=== PATIENT | female | born 1995 | race Hispanic/Latino ===

== ENCOUNTER 2018-09-05 13:30 | Emergency (ER) | payer BC, OTHER ==
--- OUTSIDE RECORDS SUMMARY | 2018-09-05 13:36 | XMS REPORT ---
:1995 Author Organization eClinicalWorks Care Team Providers Name Role Phone Ramakrishna [facility] Provider Role Unavailable Allergies, Adverse Reactions, Alerts Substance Reaction Event Type codeine Info Not Available Drug Allergy Problems Problem Type Condition Code Onset Dates Condition Status Assessment Diabetes type 2, controlled E11.9 Active Assessment Acute non-recurrent maxillary J01.00 Active sinusitis Assessment S/P gastrectomy Z90.3 Active Assessment Depression with anxiety F41.8 Active Assessment Iron deficiency anemia secondary to D50.8 Active inadequate dietary iron intake Assessment Vitamin D deficiency E55.9 Active Problem Chronic sinusitis, unspecified J32.9 Active location Problem Seasonal allergic rhinitis, J30.2 Active unspecified trigger Problem Vitamin D deficiency E55.9 Active Problem Depression with anxiety F41.8 Active Problem Iron deficiency anemia secondary to D50.8 Active inadequate dietary iron intake Problem S/P gastrectomy Z90.3 Active Problem Diabetes type 2, controlled E11.9 Active Medications Medication Code Code Instructions Start End Date Status Dosage System Date Ferrous Sulfate [facility] [id number] 325 (65 Fe) MG Active 1 tablet Orally BID Azithromycin ND [id number] 250 MG Orally Aug 07Aug 12, Active 2 tablets Once a day 2017 2017 on the first day, then 1 tablet daily for 4 days Vitamin D3 [facility] [id number] UNIT Aug 07October Active 1 capsule Orally Once a 2017 week x 12 weeks Results No Known Results Summary Purpose eClinicalWorks Submission
[2018-09-05 15:03] LABS: Urine Blood NEGATIVE (NEG); Urine Glucose NEGATIVE (NEG); Urine Protein NEGATIVE (NEG); Urine Specific Gravity 1.025 (1.005-1.030); Urine pH 6.5 (5.0-7.0)
[2018-09-05 15:06] LABS: Urine Bacteria 20-50 /HPF (<20); Urine Culture Reflex Order NOT NEEDED; Urine Mucus 2+ /HPF (NONE SEEN); Urine RBC <5 /HPF (NONE SEEN)
--- NOTE | 2018-09-05 15:37 | ER ---
Nurse's Notes [facility] Name: Camilla Enciso Age: 23 yrs Sex: Female : 1995 Arrival Date: 09/05/2018 Time: 13:33 Bed 15 Private MD: out of town, doctor Diagnosis: Urinary tract infection, site not specified;Abdominal tenderness-ecchymosis Presentation: 09/05 13:34 Presenting complaint: Patient states: RLQ pain, dark purple bruise noted yesterday but sv denies injury or recent MVC. Reports "It feels like a ball.". Transition of care: patient was not received from another setting of care. Onset of symptoms was September 04, 2018. Care prior to arrival: None. 13:34 Method Of Arrival: Ambulatory sv 13:34 Acuity: ALFREDITO 3 sv 14:00 Risk Assessment: Do you want to hurt yourself or someone else? Patient reports no jl7 desire to harm self or others. Initial Sepsis Screen: Does the patient meet any 2 criteria? No. Patient's initial sepsis screen is negative. Does the patient have a suspected source of infection? No. Patient's initial sepsis screen is negative. Triage Assessment: 13:34 General: Appears in no apparent distress. uncomfortable, Behavior is calm, cooperative, sv appropriate for age. Pain: Complains of pain in right lower quadrant Pain currently is 7 out of 10 on a pain scale. Neuro: Level of Consciousness is awake, alert, obeys commands, Oriented to person, place, time, situation, Moves all extremities. Full function Gait is steady. Respiratory: Respiratory effort is even, unlabored, Respiratory pattern is regular, symmetrical. Derm: Skin is pink, warm \\T\\ dry. Bruising that is dark purple, on right lower quadrant. Historical: - Allergies: 13:35 Hydrocodone-Acetaminophen; sv - PSHx: 13:35 Gastric Bypass; Tonsillectomy; sv - Immunization history:: Flu vaccine is up to date. - Social history:: Smoking status: Patient/guardian denies using tobacco. - Ebola Screening: : No symptoms or risks identified at this time. Screenin:41 Abuse screen: Denies threats or abuse. Denies injuries from another. Nutritional sv screening: No deficits noted. Tuberculosis screening: No symptoms or risk factors identified. Fall Risk None identified. Assessment: 14:00 General: Appears in no apparent distress. uncomfortable, Behavior is calm, cooperative, jl7 appropriate for age. Pain: Complains of pain in right lower quadrant Pain does not radiate. Pain currently is 6 out of 10 on a pain scale. Quality of pain is described as crampy, Pain began 1 day ago. Is continuous. Neuro: Level of Consciousness is awake, alert, obeys commands, Oriented to person, place, time, situation. Cardiovascular: Heart tones S1 S2 present Patient's skin is warm and dry. Respiratory: Airway is patent Respiratory effort is even, unlabored, Respiratory pattern is regular, symmetrical. GI: Bowel sounds present X 4 quads. Abd is soft and non tender in right upper quadrant, left upper quadrant and left lower quadrant Abdomen is tender to palpation in right lower quadrant. : No signs and/or symptoms were reported regarding the genitourinary system. EENT: No signs and/or symptoms were reported regarding the EENT system. Derm: Skin is pink, warm \\T\\ dry. Musculoskeletal: No signs and/or symptoms reported regarding the musculoskeletal system. 15:00 Reassessment: Patient appears in no apparent distress at this time. Patient and/or jl7 family updated on plan of care and expected duration. Pain level reassessed. Patient is alert, oriented x 3, equal unlabored respirations, skin warm/dry/pink. 16:35 Reassessment: Pt will be discharged after shot time. jl7 Vital Signs: 13:35 BP 106 / 70; Pulse 71; Resp 16; Temp 98.5; Pulse Ox 100% ; Weight 77.11 kg; Height 5 sv ft. 5 in. (165.10 cm); Pain 7/10; 14:30 BP 121 / 75; Pulse 66; Resp 16 S; Pulse Ox 100% on R/A; Pain 6/10; jl7 15:30 BP 119 / 78; Pulse 63; Resp 16 S; Pulse Ox 100% on R/A; jl7 16:30 BP 121 / 74; Pulse 65; Resp 14 S; Pulse Ox 100% on R/A; jl7 13:35 Body Mass Index 28.29 (77.11 kg, 165.10 cm) sv ED Course: 13:33 Patient arrived in ED. mr 13:33 out of town, doctor is Private Physician. mr 13:35 Triage completed. sv 13:36 Arm band placed on. sv 13:41 [facility] snw 13:41 Abram Delong MD is Attending Physician. snw 13:41 Leonardo Tejeda, KB is Primary Nurse. jl7 13:41 Patient has correct armband on for positive identification. Bed in low position. Door sv closed. Head of bed elevated. 14:52 Urine Culture Sent. 5 14:52 Test, Urine Sent. 5 14:52 Urine Microscopic Only Sent. mh5 14:53 Urine collected: clean catch specimen, clear. mh5 14:54 Urine --Ancillary (enter results) Sent. mh5 14:54 Urine Dipstick--Ancillary (enter results) Sent. 5 15:11 Extremity Nonvascular Complete In Process Unspecified. EDMS 16:50 No provider procedures requiring assistance completed. Patient did not have IV access jl7 during this emergency room visit. Administered Medications: 16:35 Drug: Rocephin (cefTRIAXone) 1 grams Route: IM; Site: right ventrogluteal; jl7 16:50 Follow up: Response: No adverse reaction jl7 Outcome: 15:37 Discharge ordered by MD. snw 16:50 Discharged to home ambulatory. jl7 16:50 Condition: stable 16:50 Discharge instructions given to patient, Instructed on discharge instructions, follow up and referral plans. medication usage, Demonstrated understanding of instructions, follow-up care, medications, Prescriptions given X 1. 17:20 Patient left the ED. jl7 Signatures: Dispatcher [employer] EDMD Corrina Cabral RN RN Kadi Almaguer FNP-C [facility] Leonardo Tejeda, RN RN jl7 Corrections: (The following items were deleted from the chart) 17:20 17:19 Discharged to home ambulatory, jl7 jl7 17:20 17:19 Condition: stable jl jl7 17:20 17:19 Discharge instructions given to patient, Instructed on discharge instructions, jl7 follow up and referral plans. medication usage, Demonstrated understanding of instructions, follow-up care, medications, Prescriptions given X 1, jl7
--- NOTE | 2018-09-05 15:38 | EDPHYS ---
Physician Documentation [facility] Name: Camilla Enciso Age: 23 yrs Sex: Female : 1995 Arrival Date: 09/05/2018 Time: 13:33 Bed 15 Private MD: out of town, doctor ED Physician Abram Delong HPI: 09/05 14:30 This 23 yrs old Female presents to ER via Ambulatory with complaints of snw Abdominal Pain. 14:30 The patient presents with abd ecchymosis s/p squeezing small area, c/o abd cramping. snw Onset: The symptoms/episode began/occurred suddenly, yesterday. The symptoms do not radiate. Associated signs and symptoms: Pertinent positives: abd cramping. The symptoms are described as crampy. Severity of pain: At its worst the pain was very mild mild. The patient has not experienced similar symptoms in the past. The patient has not recently seen a physician. no gingival bleeding, no GI bleeding, no hematuria. Historical: - Allergies: 13:35 Hydrocodone-Acetaminophen; sv - PSHx: 13:35 Gastric Bypass; Tonsillectomy; sv - Immunization history:: Flu vaccine is up to date. - Social history:: Smoking status: Patient/guardian denies using tobacco. - Ebola Screening: : No symptoms or risks identified at this time. ROS: 14:27 Constitutional: Negative for fever, chills, and weight loss, Eyes: Negative for injury, snw pain, redness, and discharge, ENT: Negative for injury, pain, and discharge, Neck: Negative for injury, pain, and swelling, Cardiovascular: Negative for chest pain, palpitations, and edema, Respiratory: Negative for shortness of breath, cough, wheezing, and pleuritic chest pain, Back: Negative for injury and pain, : Negative for injury, bleeding, discharge, and swelling, MS/Extremity: Negative for injury and deformity, Skin: Negative for injury, rash, and discoloration, Neuro: Negative for headache, weakness, numbness, tingling, and seizure. 14:27 Abdomen/GI: Positive for abdominal cramps, area of ecchymosis s/p squeezing a sore area. Exam: 14:27 Constitutional: This is a well developed, well nourished patient who is awake, alert, snw and in no acute distress. Head/Face: Normocephalic, atraumatic. Eyes: Pupils equal round and reactive to light, extra-ocular motions intact. Lids and lashes normal. Conjunctiva and sclera are non-icteric and not injected. Cornea within normal limits. Periorbital areas with no swelling, redness, or edema. ENT: Nares patent. No nasal discharge, no septal abnormalities noted. Tympanic membranes are normal and external auditory canals are clear. Oropharynx with no redness, swelling, or masses, exudates, or evidence of obstruction, uvula midline. Mucous membranes moist. Neck: Trachea midline, no thyromegaly or masses palpated, and no cervical lymphadenopathy. Supple, full range of motion without nuchal rigidity, or vertebral point tenderness. No Meningismus. Chest/axilla: Normal chest wall appearance and motion. Nontender with no deformity. No lesions are appreciated. Cardiovascular: Regular rate and rhythm with a normal S1 and S2. No gallops, murmurs, or rubs. Normal PMI, no JVD. No pulse deficits. Respiratory: Lungs have equal breath sounds bilaterally, clear to auscultation and percussion. No rales, rhonchi or wheezes noted. No increased work of breathing, no retractions or nasal flaring. Back: No spinal tenderness. No costovertebral tenderness. Full range of motion. Skin: Warm, dry with normal turgor. Normal color with no rashes, no lesions, and no evidence of cellulitis. MS/ Extremity: Pulses equal, no cyanosis. Neurovascular intact. Full, normal range of motion. Neuro: Awake and alert, GCS 15, oriented to person, place, time, and situation. Cranial nerves II-XII grossly intact. Motor strength 5/5 in all extremities. Sensory grossly intact. Cerebellar exam normal. Normal gait. 14:27 Abdomen/GI: Inspection: bruising, right lower quadrant, Bowel sounds: normal, Palpation: abdomen is soft and non-tender. Vital Signs: 13:35 BP 106 / 70; Pulse 71; Resp 16; Temp 98.5; Pulse Ox 100% ; Weight 77.11 kg; Height 5 sv ft. 5 in. (165.10 cm); Pain 7/10; 14:30 BP 121 / 75; Pulse 66; Resp 16 S; Pulse Ox 100% on R/A; Pain 6/10; jl7 15:30 BP 119 / 78; Pulse 63; Resp 16 S; Pulse Ox 100% on R/A; jl7 16:30 BP 121 / 74; Pulse 65; Resp 14 S; Pulse Ox 100% on R/A; jl7 13:35 Body Mass Index 28.29 (77.11 kg, 165.10 cm) sv MDM: 14:06 Patient medically screened. snw 15:38 Data reviewed: vital signs, nurses notes. Data interpreted: Pulse oximetry: on room air snw is 100 %. Interpretation: normal. Counseling: I had a detailed discussion with the patient and/or guardian regarding: the historical points, exam findings, and any diagnostic results supporting the discharge/admit diagnosis, lab results, the need for outpatient follow up, for definitive care, to return to the emergency department if symptoms worsen or persist or if there are any questions or concerns that arise at home. Special discussion: Based on the patient's Hx, exam, and Dx evaluation, there is no indication for emergent surgery or inpatient Tx. It is understood by the patient/guardian that if the Sx's persist or worsen they need to return immediately for re-evaluation. Based on the history and exam findings, there is no indication for further emergent testing or inpatient evaluation. I discussed with the patient/guardian the need to see the primary care provider for further evaluation of the symptoms. 09/05 14:50 Order name: Urine Dipstick--Ancillary (enter results); Complete Time: 15:12 09/05 14:50 Order name: Urine --Ancillary (enter results); Complete Time: 15:12 09/05 14:51 Order name: Test, Urine; Complete Time: 15:12 EDNM 09/05 14:51 Order name: Urine Microscopic Only; Complete Time: 15:12 EDNM 09/05 13:43 Order name: Urine Test (obtain specimen); Complete Time: 14:52 snw 09/05 13:43 Order name: Urine Dipstick-Ancillary (obtain specimen); Complete Time: 14:52 snw 09/05 14:51 Order name: Urine Culture EDNM 09/05 14:55 Order name: Extremity Nonvascular Complete; Complete Time: 16:00 EDMS Administered Medications: 16:35 Drug: Rocephin (cefTRIAXone) 1 grams Route: IM; Site: right ventrogluteal; jl7 16:50 Follow up: Response: No adverse reaction jl7 Disposition: 17:48 Co-signature as Attending Physician, Abram Delong MD. rn Disposition: 09/05/18 15:37 Discharged to Home. Impression: Urinary tract infection, site not specified, Abdominal tenderness - ecchymosis. - Condition is Stable. - Discharge Instructions: Abdominal Pain, Adult, Contusion, Urinary Tract Infection, Adult. - Prescriptions for Macrobid 100 mg Oral Capsule - take 1 capsule by ORAL route every 12 hours for 10 days; 20 capsule. - Work release form, Medication Reconciliation Form, Thank You Letter, Antibiotic Education, Prescription Opioid Use form. - Follow up: Private Physician; When: 2 - 3 days; Reason: Recheck today's complaints, Continuance of care, Re-evaluation by your physician. Follow up: Emergency Department; When: As needed; Reason: Worsening of condition. Signatures: Dispatcher [employer] EDNM Corrina Cabral RN RN Kadi Cristobal, HEEL SPRAYER-C HEEL SPRAYER-[facility] Abram Delong MD MD rn Leal, Jahala, RN RN jl7 Corrections: (The following items were deleted from the chart) 14:55 14:52 Abdomen Complete+US.RAD.BRZ ordered. EDNM EDNM 15:46 14:52 Urine Culture+BA.LAB.BRZ ordered. EDNM EDNM 15:48 14:52 UA MICROSCOPIC+U.LAB.BRZ ordered. [facility] EDNM 17:20 15:37 09/05/2018 15:37 Discharged to Home. Impression: Urinary tract infection, site jl7 not specified; Abdominal tenderness - ecchymosis. Condition is Stable. Forms are Medication Reconciliation Form, Thank You Letter, Antibiotic Education, Prescription Opioid Use. Follow up: Private Physician; When: 2 - 3 days; Reason: Recheck today's complaints, Continuance of care, Re-evaluation by your physician. Follow up: Emergency Department; When: As needed; Reason: Worsening of condition. snw
--- NOTE | 2018-09-05 15:55 | RAD REPORT ---
EXAM DESCRIPTION: US - Extremity Nonvascular Complete - 09/05/2018 3:09 pm CLINICAL HISTORY: Right lower quadrant skin bruising COMPARISON: None. FINDINGS: Sonographic evaluation of the superficial soft tissues of the right lower quadrant abdomen performed. Within the subcutaneous fatty tissues approximately 1 centimeter deep to the skin surface there is a 7 x 5 x 4 mm hypoechoic rounded mass. Doppler evaluation shows no blood flow within the mass and no a bnormal blood flow round the periphery. Surrounding fatty tissues do not appear to be edematous. Over lying skin is not appear abnormally thickened or edematous. Trauma history is uncertain. This could be a small old hematoma in the subcutaneous fat. Mass is rela tively deep for a sebaceous cyst or skin based lesion. No sinus tract identifiable. IMPRESSION: Small 7 mm avascular hypoechoic mass in the subcutaneous fatty tissues 1 centimeter deep to the skin. Finding is nonspecific. This may be a small bold hematoma. A small abscess from a sebaceous cyst woul d be possible though this is relatively deep. No sinus tract to the skin surface.
[2018-09-05] MEDS ORDERED: CEFTRIAXONE 1000 MG/VIAL ONE (16:18)
[2018-09-05] MEDS ORDERED: LIDOCAINE 1% MPF 2 ML AMPULE ONE (16:18)
[2018-09-05 17:36] VITALS: TEMP 98.5; O2SAT 100
[2018-09-05 17:40] VITALS: BP 121/74
== END 2018-09-05 17:20 | disposition home or self-care (01) ==
LOC: ER 13:30
DX: N39.0 Urinary tract infection, site not specified (principal); Z88.5 Allergy status to narcotic agent
CPT/HCPCS: 76881; 81003; 81015; 81025; 87086; 87088; J2001

== ENCOUNTER 2018-12-12 18:43 | Observation (INO) | payer BC ==
--- OUTSIDE RECORDS SUMMARY | 2018-12-12 19:02 | XMS REPORT ---
:1995 Author Organization eClinicalWorks Care Team Providers Name Role Phone Ramakrishna [facility] Provider Role Unavailable Allergies, Adverse Reactions, Alerts [...] Date Status Dosage System Date Ferrous Sulfate [facility] [id number] 325 (65 Fe) MG Active 1 tablet Orally BID Azithromycin ND 49385013786 250 MG Orally Aug 07Aug 12, Active 2 tablets Once a day 2017 2017 on the first day, then 1 tablet daily for 4 days Vitamin D3 [facility] [id number] UNIT Aug 07October Active 1 capsule Orally Once a 2017 week x 12 weeks Results No Known Results Summary Purpose eClinicalWorks Submission
--- OUTSIDE RECORDS SUMMARY | 2018-12-12 19:02 | XMS REPORT ---
:1995 Author Organization eClinicalWorks Care Team Providers Name Role Phone Ramakrishna [facility] Provider Role Unavailable Allergies No Known Allergies Problems Problem Type Condition Code Onset Dates Condition Status Problem Chronic sinusitis, unspecified J32.9 Active location Problem Seasonal allergic rhinitis, J30.2 Active unspecified trigger Problem Vitamin D deficiency E55.9 Active Problem Depression with anxiety F41.8 Active Problem Iron deficiency anemia secondary to D50.8 Active inadequate dietary iron intake Problem S/P gastrectomy Z90.3 Active Problem Diabetes type 2, controlled E11.9 Active Medications No Known Medications Results No Known Results Summary Purpose eClinicalWorks Submission
[2018-12-12 20:51] LABS: Absolute Lymphocytes (CBC) 1.8 K/uL (0.7-4.9); Absolute Monocytes 0.5 K/uL (0.1-1.3); Absolute Neutrophil 2.9 K/uL (1.8-8.0); Basophils % 0.6 % (0-1.3); Eosinophils % 3.1 % (0-4.4); Hematocrit 21.1 % (36.0-45.0); Lymphocytes % 33.6 % (15.3-44.8); MPV 6.6 fL (7.6-11.3); Monocytes % 8.5 % (3.3-12.3); RBC Red Blood Cell Count 2.42 M/uL (3.86-4.86)
[2018-12-12 21:08] LABS: BUN Blood Urea Nitrogen 14 mg/dL (7-18); Bicarbonate 30 mmol/L (21-32); Glucose Level 92 mg/dL (74-106); NT PRO-BNP 230 pg/mL (<125); Potassium 3.7 mmol/L (3.5-5.1); Sodium Level 143 mmol/L (136-145)
--- NOTE | 2018-12-12 21:20 | RAD REPORT ---
EXAM DESCRIPTION: USExtrem Venous W Compress Bil12/12/2018 9:14 pm CLINICAL HISTORY: Bilateral leg swelling COMPARISON: none FINDINGS: The common femoral, superficial femoral, popliteal and posterior tibial veins bilaterally are compressible and demonstrate augmentation. Doppler demonstrates good flow. IMPRESSION: No evidence of deep venous thrombosis involving either lower extremity.
--- NOTE | 2018-12-12 21:21 | RAD REPORT ---
EXAM DESCRIPTION: [place] Single View12/12/2018 9:09 pm CLINICAL HISTORY: sob COMPARISON: 2014 FINDINGS: The lungs appear clear of acute infiltrate. The heart is normal size IMPRESSION: No acute abnormalities displayed
[2018-12-12 21:53] LABS: RBC Red Blood Cell Count 2.45 M/uL (3.86-4.86)
--- NOTE | 2018-12-12 22:16 | ER ---
Nurse's Notes [facility] Name: Camilla Enciso Age: 23 yrs Sex: Female : 1995 Arrival Date: 12/12/2018 Time: 18:46 Bed 6 Private MD: Baljeet Durbin Diagnosis: Anemia in chronic diseases classified elsewhere Presentation: 12/12 19:14 Presenting complaint: Patient states: "I had surgery in [place], liposuction, and now my jd3 legs and ankles are swelling.". Transition of care: patient was not received from another setting of care. Onset of symptoms was December 11, 2018. Risk Assessment: Do you want to hurt yourself or someone else? Patient reports no desire to harm self or others. Initial Sepsis Screen: Does the patient meet any 2 criteria? No. Patient's initial sepsis screen is negative. Does the patient have a suspected source of infection? No. Patient's initial sepsis screen is negative. Care prior to arrival: None. 19:14 Method Of Arrival: Ambulatory j 19:14 Acuity: ALFREDITO 3 jd3 WASHER CARCASS: 19:18 LMP 12/08/2018 jd3 Historical: - Allergies: 19:18 Hydrocodone-Acetaminophen; jd3 - Home Meds: 19:18 Cipro Oral [Active]; Ferrous Sulfate Oral [Active]; jd3 - PMHx: 19:18 Anemia; jd3 - PSHx: 19:18 Gastric Bypass; Tonsillectomy; jd3 - Immunization history:: Adult Immunizations up to date. - Social history:: Smoking status: Patient/guardian denies using tobacco. - Ebola Screening: : Patient negative for fever greater than or equal to 101.5 degrees Fahrenheit, and additional compatible Ebola Virus Disease symptoms. Screenin:29 Abuse screen: Denies threats or abuse. Denies injuries from another. Nutritional ao screening: No deficits noted. Tuberculosis screening: No symptoms or risk factors identified. Fall Risk None identified. Assessment: 20:27 General: Appears in no apparent distress. comfortable, Behavior is calm, cooperative, ao appropriate for age. Pain: Complains of pain in right leg and left leg. Neuro: Level of Consciousness is awake, alert, obeys commands, Oriented to person, place, time, situation, Appropriate for age Moves all extremities. Full function Speech is normal, Facial symmetry appears normal. Cardiovascular: Capillary refill < 3 seconds Patient's skin is warm and dry. Respiratory: Airway is patent Respiratory effort is even, unlabored, Respiratory pattern is regular, symmetrical. GI: Abdomen is non-distended. : No signs and/or symptoms were reported regarding the genitourinary system. EENT: No signs and/or symptoms were reported regarding the EENT system. Derm: Skin is dry, Skin is pink, warm \\T\\ dry. normal, Skin temperature is warm. Musculoskeletal: Circulation, motion, and sensation intact. Range of motion: intact in all extremities, Swelling present in right leg and left leg. 20:50 Reassessment: Patient appears in no apparent distress at this time. Patient and/or ao family updated on plan of care and expected duration. Pain level reassessed. 20:57 Reassessment: Report an lab alert Hg 7.2 to BRENT Miller. ao 22:10 Reassessment: Patient appears in no apparent distress at this time. Patient and/or ao family updated on plan of care and expected duration. Pain level reassessed. Vital Signs: 19:18 BP 122 / 99; Pulse 91; Resp 17 S; Temp 98.9(O); Pulse Ox 100% on R/A; Weight 80.29 kg jd3 (R); Height 5 ft. 5 in. (165.10 cm) (R); Pain 0/10; 20:50 BP 116 / 64; Pulse 86; Resp 16; Pulse Ox 98% on R/A; ao 21:50 BP 128 / 82 Supine; Pulse 85; ao 21:52 BP 127 / 76 Sitting; Pulse 100; ao 21:54 BP 122 / 77 Standing; Pulse 94 RA; Resp 18; Pulse Ox 100% on R/A; ao 22:54 BP 114 / 78; Pulse 84; Resp 18; Temp 98.9; Pulse Ox 100% on R/A; Pain 0/10; ak1 19:18 Body Mass Index 29.45 (80.29 kg, 165.10 cm) jd3 19:18 reports no pain, only pressure. jd3 ED Course: 18:46 Patient arrived in ED. mr 18:46 Baljeet Durbin, is Private Physician. mr 19:17 Triage completed. jd3 19:19 Arm band placed on. jd3 19:39 Osorio Hernandez, RN is Primary Nurse. ao 19:42 Lennox Simons PA is PHCP. cp 19:42 Lennox Otoole MD is Attending Physician. cp 20:29 Patient has correct armband on for positive identification. Pulse ox on. NIBP on. ao 20:37 Inserted saline lock: 20 gauge in left antecubital area, using aseptic technique. ao 21:09 XRAY Chest (1 view) In Process Unspecified. EDMS 21:13 US Extremity Venous W Compression [place] In Process Unspecified. EDMS 22:14 Served as a chip bin conveyor tender during rectal exam. hemoccult negative. ak1 22:15 Lakisha Tenorio MD is Hospitalizing Provider. cp 22:52 Patient admitted, IV remains in place. ak1 Administered Medications: No medications were administered Outcome: 22:16 Decision to Hospitalize by Provider. cp 22:52 Condition: good ak1 22:52 Instructed on the need for admit. 22:52 Admitted to Med/surg accompanied by tech, via wheelchair, room 211, with chart, Report ak1 called to hussein QUILES 23:29 Patient left the ED. ak1 Signatures: Dispatcher [employer] EDOH Tania ZaragozaCourtney RN RN ak1 Lennox Simons PA PA cp Osorio Hernandez, RN RN Remington Gonzalez RN RN jd3
--- NOTE | 2018-12-12 22:16 | EDPHYS ---
Physician Documentation [facility] Name: Camilla Enciso Age: 23 yrs Sex: Female : 1995 Arrival Date: 12/12/2018 Time: 18:46 Bed 6 Private MD: Ramakrishna Baljeet ED Physician Lennox Otoole HPI: 12/12 20:00 This 23 yrs old Female presents to ER via Ambulatory with complaints of Leg cp Swelling. 20:00 The patient presents with swelling. The complaints affect the right lower leg and left cp lower leg and right ankle and left ankle. 20:00 Context: reports recent liposuction surgery performed in [place]. Onset: The cp symptoms/episode began/occurred gradually. Associated signs and symptoms: Pertinent negatives calf tenderness, fever, warmth, SOB, chest pain. Severity of symptoms: in the emergency department the symptoms have improved, mildly. 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 - Social history:: Smoking status: Patient/guardian denies using tobacco. - Ebola Screening: : Patient negative for fever greater than or equal to 101.5 degrees Fahrenheit, and additional compatible Ebola Virus Disease symptoms. ROS: 20:05 Constitutional: Negative for body aches, chills, fever, poor PO intake. cp 20:05 Eyes: Negative for injury, pain, redness, and discharge. cp 20:05 ENT: Negative for drainage from ear(s), ear pain, sore throat, difficulty swallowing, difficulty handling secretions. 20:05 Neck: Negative for pain with movement, pain at rest, stiffness, tenderness. 20:05 Cardiovascular: Positive for edema, Negative for chest pain. 20:05 Respiratory: Negative for cough, hemoptysis, shortness of breath, wheezing. 20:05 Abdomen/GI: Negative for abdominal pain, nausea, vomiting, and diarrhea, black/tarry stool, rectal bleeding. 20:05 Back: Negative for pain at rest, pain with movement. 20:05 : Negative for urinary symptoms. 20:05 Skin: Negative for rash. 20:05 Neuro: Negative for altered mental status, headache, syncope, weakness. 20:05 All other systems are negative. Exam: 20:15 Constitutional: The patient appears in no acute distress, alert, awake, cp non-diaphoretic, non-toxic, well developed, well nourished. 20:15 Head/Face: Normocephalic, atraumatic. cp 20:15 Eyes: Periorbital structures: appear normal, Pupils: equal, round, and reactive to light and accomodation, Extraocular movements: intact throughout, Conjunctiva: normal, no exudate, no injection, Sclera: no appreciated abnormality, Lids and lashes: appear normal, bilaterally. 20:15 ENT: External ear(s): are unremarkable, Ear canal(s): are normal, clear, TM's: dullness, bilaterally, Nose: is normal, Mouth: Lips: moist, Oral mucosa: pink and intact, moist, Posterior pharynx: Airway: no evidence of obstruction, patent, swelling, is not appreciated, erythema, is not appreciated, Voice: is normal. 20:15 Neck: ROM/movement: is normal, is supple, without pain, no range of motions limitations, no nuchal rigidity. 20:15 Chest/axilla: Inspection: normal, Palpation: is normal, no crepitus, no tenderness. 20:15 Cardiovascular: Rate: normal, Rhythm: regular, Edema: ankle edema, that is mild, JVD: is not appreciated. 20:15 Respiratory: the patient does not display signs of respiratory distress, Respirations: normal, no grunting, no retractions, no splinting, no tachypnea, labored breathing, is not present, Breath sounds: are clear throughout, no decreased breath sounds, no stridor, no wheezing. 20:15 Abdomen/GI: Inspection: bruising, Bowel sounds: active, all quadrants, Palpation: soft, in all quadrants, mild abdominal tenderness, in all quadrants. 20:15 Back: pain, is absent, ROM is normal. 20:15 Skin: cellulitis, is not appreciated, no rash present. 20:15 Neuro: Orientation: to person, place \T\ time. Mentation: is normal, Cerebellar function: is grossly normal, Motor: moves all fours, strength is normal, Sensation: is normal. 20:42 ECG was reviewed by the Attending Physician. cp 22:11 : Rectal exam: Guaiac testing: results were negative for occult blood. cp Vital Signs: 19:18 BP 122 / 99; Pulse 91; Resp 17 S; Temp 98.9(O); Pulse Ox 100% on R/A; Weight 80.29 kg jd3 (R); Height 5 ft. 5 in. (165.10 cm) (R); Pain 0/10; 20:50 BP 116 / 64; Pulse 86; Resp 16; Pulse Ox 98% on R/A; ao 21:50 BP 128 / 82 Supine; Pulse 85; ao 21:52 BP 127 / 76 Sitting; Pulse 100; ao 21:54 BP 122 / 77 Standing; Pulse 94 RA; Resp 18; Pulse Ox 100% on R/A; ao 22:54 BP 114 / 78; Pulse 84; Resp 18; Temp 98.9; Pulse Ox 100% on R/A; Pain 0/10; ak1 19:18 Body Mass Index 29.45 (80.29 kg, 165.10 cm) jd3 19:18 reports no pain, only pressure. jd3 MDM: 19:42 Patient medically screened. cp 22:15 Data reviewed: vital signs, nurses notes, lab test result(s), EKG, radiologic studies, cp plain films, ultrasound, I have discussed the patient's presentation/case with the attending Emergency Department Physician; and as a result, I will admit patient. 22:15 Test interpretation: by ED physician or midlevel provider: ECG, plain radiologic cp studies. Counseling: I had a detailed discussion with the patient and/or guardian regarding: the historical points, exam findings, and any diagnostic results supporting the discharge/admit diagnosis, lab results, radiology results, the need for further work-up and treatment in the hospital. Physician consultation: Lakisha Tenorio MD was called at 22:10, was contacted at 22:10, regarding admission, to the medical/surgical unit. patient's condition. 12/12 20:21 Order name: BMP; Complete Time: 21:09 cp 12/12 20:21 Order name: BNP; Complete Time: 21:09 cp 12/12 20:21 Order name: CBC with Diff; Complete Time: 20:59 cp 12/12 21:00 Interpretation: Normal except: RBC 2.42; HGB 7.2; HCT 21.1; MCV 87.0; MPV 6.6. cp 12/12 21:11 Order name: Retic Count 12/12 21:11 Order name: Iron Level 12/12 21:11 Order name: B12 12/12 21:11 Order name: Folic Acid,Serum (folate) 12/12 21:11 Order name: Retic Count; Complete Time: 22:12 EDIN 12/12 21:11 Order name: Ferritin EDIN 12/12 21:11 Order name: Vitamin B12 Level [facility] 12/12 21:11 Order name: Folic Acid, (Folate) [facility] 12/12 22:13 Order name: Type And Screen 12/12 22:37 Order name: Packed RBC Leukored -1 [facility] 12/12 22:39 Order name: ABO/RH typing [facility] 12/12 20:21 Order name: US Extremity Venous W Compression [place]; Complete Time: 22:12 12/12 20:21 Order name: EKG; Complete Time: 20:22 12/12 20:21 Order name: XRAY Chest (1 view); Complete Time: 22:12 12/12 22:37 Order name: CONS Pharmacy Consult [facility] 12/12 22:37 Order name: EKG Electrocardiogram [facility] 12/12 22:37 Order name: EKG Electrocardiogram [facility] 12/12 22:37 Order name: EKG Electrocardiogram [facility] 12/12 22:37 Order name: EKG Electrocardiogram [facility] 12/12 22:37 Order name: EKG Electrocardiogram [facility] 12/12 22:37 Order name: EKG Electrocardiogram [facility] 12/12 22:37 Order name: EKG Electrocardiogram [facility] 12/12 22:37 Order name: EKG Electrocardiogram [facility] 12/12 22:37 Order name: EKG Electrocardiogram [facility] 12/12 22:37 Order name: EKG Electrocardiogram [facility] 12/12 22:37 Order name: EKG Electrocardiogram [facility] 12/12 22:39 Order name: Antibody Screen [facility] 12/12 19:54 Order name: Urine Dipstick-Ancillary (obtain specimen); Complete Time: 20:46 12/12 19:54 Order name: Urine Test (obtain specimen); Complete Time: 20:46 cp 12/12 20:21 Order name: EKG - Nurse/Tech; Complete Time: 20:46 cp 12/12 20:21 Order name: IV; Complete Time: 20:46 cp 12/12 21:06 Order name: Orthostatics; Complete Time: 21:52 cp EC:42 Rate is 81 beats/min. Rhythm is regular. IL interval is normal. QRS interval is normal. cp QT interval is normal. T waves are Inverted in lead III. Interpreted by me. Reviewed by me. Administered Medications: No medications were administered Disposition: 12/12/18 22:16 Hospitalization ordered by Lakisha Tenorio for Observation. Preliminary diagnosis is Anemia in chronic diseases classified elsewhere. - Bed requested for Telemetry/MedSurg (observation). - Status is Observation. ak1 - Condition is Stable. - Problem is new. - Symptoms are unchanged. UTI on Admission? No Addendum: 12/16/2018 10:58 Co-signature as Attending Physician, Lennox Otoole MD I agree with the assessment and c hernandez plan of care. Signatures: Dispatcher [facility] Tamika Montes RN Lennox Carrillo MD MD cha Krenek, Amber RN RN ak1 Lennox Simons PA PA cp Davies, Jonathon RN RN jd3 Corrections: (The following items were deleted from the chart) 12/12 20:27 20:22 Chest Single View+RAD.RAD.BRZ ordered. [facility] EDIN 22:48 22:16 Hospitalization Ordered by Lakisha Tenorio MD for Observation. Preliminary mw diagnosis is Anemia in chronic diseases classified elsewhere. Bed requested for Telemetry/MedSurg (observation). Status is Observation. Condition is Stable. Problem is new. Symptoms are unchanged. UTI on Admission? No. cp 23:29 22:48 12/12/2018 22:16 Hospitalization Ordered by Lakisha Tenorio MD for Observation. ak1 Preliminary diagnosis is Anemia in chronic diseases classified elsewhere. Bed requested for Telemetry/MedSurg (observation). Status is Observation. Condition is Stable. Problem is new. Symptoms are unchanged. UTI on Admission? No. mw
[2018-12-12] MEDS ORDERED: MORPHINE 2 MG/ML SYR IV PRN (22:31)
[2018-12-12] MEDS ORDERED: ONDANSETRON 4 MG/2 ML VIAL IV PRN (22:31)
[2018-12-12 22:32] LABS: Ferritin 98.4 ng/mL (8-388); Folic Acid, (Folate) 16.8 ng/mL (3.1-17.5)
[2018-12-12] MEDS ORDERED: NA CHLORIDE 0.9% 250 ML IV SCH (23:00)
[2018-12-13 00:41] VITALS: BMI 30.7
[2018-12-13 01:23] LABS: Hematocrit 20.8 % (36.0-45.0)
[2018-12-13] MEDS ORDERED: TRAMADOL HCL 50 MG TAB PO PRN (02:12)
[2018-12-13 04:36] VITALS: TEMP 98
[2018-12-13] MEDS: ACETAMINOPHEN 500 MG TAB PO PRN ×2 (05:52→13:44)
[2018-12-13] MEDS ORDERED: FUROSEMIDE 20 MG/ 2ML VIAL IV SCH (07:00)
--- NOTE | 2018-12-13 10:29 | EKG ---
Test Date: 2018-12-12 Test Time: 20:35:32 Staff Therapist: JENNIFER MEASUREMENT RESULTS: Intervals: Rate: 81 ID: [id number] QRSD: 80 QT: 360 QTc: 418 [place]: P: 37 ID: [id number] QRS: 55 T: 16 INTERPRETIVE STATEMENTS: Normal sinus rhythm Normal ECG Compared to ECG 12/09/2010 17:56:07 No significant changes Electronically Signed On 12-13-18 10:28:09 CDT by Inderjit Harper
--- NOTE | 2018-12-13 12:10 | P.SSS ---
Patient History Date of Service: 12/13/18 History of Present Illness: 23-year-old female presented to the ED complaining of having bilateral lower leg swelling was found to have hemoglobin of 7.0 and thus was admitted to the hospital for further care. Patient was recently in at [place] and had liposuction to the back and thigh area. Does have history of heavy menstrual cycle. Allergies Hydrocodone-Acetaminophen Allergy (Uncoded 12/12/18 23:33) Nausea/Vomiting Home Medications: Ciprofloxacin HCl [Cipro 500 MG Tablet] 500 mg PO DAILY 12/12/18 Ferrous Sulfate 325 mg PO BID 12/12/18 Tramadol HCl [Ultram] 50 mg PO BEDTIME PRN 12/12/18 - Past Medical/Surgical History Has patient received pneumonia vaccine in the past: No Diabetic: No -: Anemia -: liposuction -: gastric bypass -: tonsillectomy - Social History Smoking Status: Never smoker Alcohol use: Yes CD- Drugs: Yes Caffeine use: Yes Place of Residence: Home Review of Systems 10-point ROS is otherwise unremarkable Physical Examination - Vital Signs Temperature: 98.0 F Blood Pressure: 109/64 Pulse: 80 Respirations: 17 Pulse Ox (%): 95 - Physical Exam General: Alert, In no apparent distress HEENT: Atraumatic, PERRLA, Mucous membr. moist/pink, EOMI, Sclerae nonicteric Neck: Supple, 2+ carotid pulse no bruit, No LAD, Without JVD or thyroid abnormality Respiratory: Clear to auscultation bilaterally, Normal air movement Cardiovascular: Regular rate/rhythm, Normal S1 S2 Gastrointestinal: Normal bowel sounds, No tenderness Musculoskeletal: No tenderness Integumentary: No rashes Neurological: Normal gait, Normal speech, Normal strength at 5/5 x4 extr, Normal tone, Normal affect Lymphatics: No axilla or inguinal lymphadenopathy - Studies Laboratory Data (last 24 hrs) 12/12/18 20:30: WBC 5.4, Hgb 7.2 L*, Hct 21.1 L, Plt Count 312 12/12/18 20:30: Sodium 143, Potassium 3.7, BUN 14, Creatinine 0.56, Glucose 92 Treatment Summary: Overall during the hospital stay patient remained stable Patient was initially admitted to the hospital for acute blood loss anemia secondary to abnormal uterine bleeding and recent procedure. Patient was transfused 2 units her hemoglobin did rise up to over 8 and thus patient was discharged home under stable condition was asked to follow up with OBGYN for her abnormal uterine bleeding. Patient demonstrate understanding and thus was discharged home under stable condition - Disposition Disposition: ROUTINE DISCHARGE Condition: GOOD Diet: Regular Activity: Ad michi
[2018-12-13] MEDS: NA CHLORIDE 0.9% 1,000 ML IV SCH ×2 (12:20)
--- NOTE | 2018-12-13 13:35 | P.HP ---
Certification for Inpatient Patient admitted to: Observation With expected LOS: <2 Midnights Patient will require the following post-hospital care: None Practitioner: I am a practitioner with admitting privileges, knowledge of patient current condition, hospital course, and medical plan of care. Services: Services provided to patient in accordance with Admission requirements found in Title 42 Section 412.3 of the Code of Federal Regulations Patient History Date of Service: 12/12/18 Reason for admission: Anemia of ABL; s/p tummy tuck of the thighs, lower abd., upper back History of Present Illness: Patient is a 23-year-old female who came into the hospital with generalized weakness and swelling in the lower extremity. 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 She had recently gone to [place] for a tummy tuck. She had liposuction in her lower abdomen as well as her thigh area and her upper back. She went home the following day and was doing well up until the swelling in her lower extremity started. She also noticed bruising in her lower extremity and her lower abdomen. She spoke to her surgeon in [place] and he said that she just needed to monitor it carefully. Because the swelling got much worse, she came into the hospital where she was found to be severely anemic with a hemoglobin of 7.0. She will be admitted to the hospital for a blood transfusion since she is status post surgery. We will give her some Lasix to help with the swelling. She will follow up as an outpatient with her PCP had her surgeon hopefully in the next week. Allergies Hydrocodone-Acetaminophen Allergy (Uncoded 12/12/18 23:33) Nausea/Vomiting Home Medications: Ciprofloxacin HCl [Cipro 500 MG Tablet] 500 mg PO DAILY 12/12/18 Ferrous Sulfate 325 mg PO BID 12/12/18 Tramadol HCl [Ultram] 50 mg PO BEDTIME PRN 12/12/18 - Past Medical/Surgical History Has patient received pneumonia vaccine in the past: No Diabetic: No -: Anemia -: liposuction -: gastric bypass -: tonsillectomy - Family History Father Family History: Reviewed- Non-Contributory - Social History Smoking Status: Never smoker Alcohol use: Yes CD- Drugs: Yes Caffeine use: Yes Place of Residence: Home Review of Systems 10-point ROS is otherwise unremarkable Physical Examination - Vital Signs Temperature: 98.0 F Blood Pressure: 109/64 Pulse: 80 Respirations: 17 Pulse Ox (%): 95 - Physical Exam General: Alert, In no apparent distress, Oriented x3 HEENT: Atraumatic, PERRLA, Mucous membr. moist/pink, EOMI, Sclerae nonicteric Neck: Supple, 2+ carotid pulse no bruit, No LAD, Without JVD or thyroid abnormality Respiratory: Clear to auscultation bilaterally, Normal air movement Cardiovascular: Regular rate/rhythm, Normal S1 S2, No murmurs Gastrointestinal: Normal bowel sounds, Soft and benign, Non-distended, No tenderness Musculoskeletal: No clubbing, No swelling, No tenderness Integumentary: Other ( Bruising in the lower abdomen as well as extension in the groin region in the lower extremities) Neurological: Normal gait, Normal speech, Normal strength at 5/5 x4 extr, Normal tone, Sensation intact, Cranial nerves 3-12 intact, Normal affect Lymphatics: No axilla or inguinal lymphadenopathy - Studies Laboratory Data (last 24 hrs) 12/12/18 20:30: WBC 5.4, Hgb 7.2 L*, Hct 21.1 L, Plt Count 312 12/12/18 20:30: Sodium 143, Potassium 3.7, BUN 14, Creatinine 0.56, Glucose 92 Assessment & Plan - Problems (Diagnosis) (1) Anemia due to acute blood loss Current Visit: Yes Status: Acute (2) Status post abdominoplasty Current Visit: Yes Status: Acute - Plan 1. Continue with gentle IV hydration 2. Transfuse 2 units of packed red blood cells for acute blood loss after surgery 3. Continue with pain control 4. start diet in a.m. and if tolerates it then anticipate discharge home after the transfusion 5. Lasix after blood transfusion 6. repeat H&H after the transfusion to make sure her hemoglobin has come up sufficiently 7. GI and DVT prophylaxis Discharge Plan: Home Plan to discharge in: 24 Hours - Advance Directives Does patient have a Living Will: No Does patient have a Durable POA for Healthcare: No - Code Status/Comfort Care Code Status Assessed: Yes Code Status: Full Code Critical Care: No Time Spent Managing PTS Care (In Minutes): 45
[2018-12-13 14:54] VITALS: O2SAT 100
[2018-12-13 16:46] LABS: Absolute Lymphocytes (CBC) 1.6 K/uL (0.7-4.9); Absolute Monocytes 0.5 K/uL (0.1-1.3); Absolute Neutrophil 3.1 K/uL (1.8-8.0); Basophils % 0.7 % (0-1.3); Eosinophils % 3.7 % (0-4.4); Hematocrit 28.6 % (36.0-45.0); Lymphocytes % 29.1 % (15.3-44.8); MPV 6.6 fL (7.6-11.3); Monocytes % 9.5 % (3.3-12.3); RBC Red Blood Cell Count 3.35 M/uL (3.86-4.86)
[2018-12-13 16:50] LABS: Protime INR 0.94
[2018-12-13 16:56] LABS: BUN Blood Urea Nitrogen 11 mg/dL (7-18); Bicarbonate 30 mmol/L (21-32); Glucose Level 96 mg/dL (74-106); Sodium Level 141 mmol/L (136-145)
[2018-12-13 17:28] VITALS: BP 117/72
== END 2018-12-13 18:55 | disposition home or self-care (01) ==
LOC: ER 18:43 → ERHOLD 22:42 → 2ND 23:12
PROVIDERS: ADMIT Hospitalist; ATTEND Hospitalist
PROC: 30233N1 Transfusion of Nonautologous Red Blood Cells into Peripheral Vein, Percutaneous Approach (ICD-10-PCS; principal; 2018-12-13)
DX: D62 Acute posthemorrhagic anemia (principal); N93.9 Abnormal uterine and vaginal bleeding, unspecified; Z98.84 Bariatric surgery status
CPT/HCPCS: 36415; 36430; 71045; 80048; 82607; 82728; 82746; 83880; 85014; 85018; 85025; 85044; 85610; 85730; 86850; 86900; 86901; 93005; 93970; 99285; G0378; J1940; J7030; P9016

== ENCOUNTER 2019-08-06 19:25 | Emergency (ER) | payer OTHER ==
--- OUTSIDE RECORDS SUMMARY | 2019-08-06 19:27 | XMS REPORT ---
:1995 Author Organization [facility] Address [address] Perez [address] [place] [id number] Care Team Providers Name Role Phone Unavailable Unavailable Unavailable Problems This patient has no known problems. Allergies, Adverse Reactions, Alerts This patient has no known allergies or adverse reactions. Medications This patient has no known medications.
--- OUTSIDE RECORDS SUMMARY | 2019-08-06 19:28 | XMS REPORT ---
:1995 Author Organization [employer] Care Team Providers Name Role Phone Baljeet Durbin Provider Role Unavailable Allergies No Known Allergies Problems Problem Type Condition Code Onset Dates Condition Status Problem Depression with anxiety F41.8 Active Problem Iron deficiency anemia secondary to D50.8 Active inadequate dietary iron intake Problem Insomnia, unspecified type G47.00 Active Problem Vitamin D deficiency E55.9 Active Problem Iron deficiency anemia due to D50.0 Active chronic blood loss Problem S/P gastrectomy Z90.3 Active Problem Diabetes type 2, controlled E11.9 Active Problem Chronic sinusitis, unspecified J32.9 Active location Problem Seasonal allergic rhinitis, J30.2 Active unspecified trigger Medications No Known Medications Results No Known Results Summary Purpose [employer] Submission
[2019-08-06 20:20] LABS: Urine Blood NEGATIVE (NEG); Urine Glucose NEGATIVE (NEG); Urine Protein NEGATIVE (NEG); Urine Specific Gravity 1.025 (1.005-1.030)
--- NOTE | 2019-08-06 20:27 | ER ---
Nurse's Notes [facility] Name: Camilla Enciso Age: 24 yrs Sex: Female : 1995 Arrival Date: 08/06/2019 Time: 19:28 Bed 8 Private MD: Diagnosis: Pain in right leg Presentation: 08/06 19:36 Presenting complaint: Patient states: R groin pain since yesterday. States she is 22 aa1 weeks and has been evaluated in L\T\D and was cleared by Dr. Mclaughlin and instructed to come to the ED to be evaluated. Denies any other symptoms. Transition of care: patient was not received from another setting of care. Onset of symptoms was August 05, 2019. Risk Assessment: Do you want to hurt yourself or someone else? Patient reports no desire to harm self or others. Initial Sepsis Screen: Does the patient meet any 2 criteria? No. Patient's initial sepsis screen is negative. Does the patient have a suspected source of infection? No. Patient's initial sepsis screen is negative. Care prior to arrival: None. 19:36 Method Of Arrival: Ambulatory aa1 19:36 Acuity: ALFREDITO 3 aa1 Triage Assessment: 19:39 General: Appears in no apparent distress. comfortable, Behavior is calm, cooperative, aa1 appropriate for age. 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 - Social history:: Smoking status: Patient/guardian denies using tobacco. - Ebola Screening: : Patient denies exposure to infectious person Patient denies travel to an Ebola-affected area in the 21 days before illness onset. Screenin:40 Abuse screen: Denies threats or abuse. Denies injuries from another. Nutritional rr5 screening: No deficits noted. Tuberculosis screening: No symptoms or risk factors identified. Fall Risk None identified. Total Ly Fall Scale indicates No Risk (0-24 pts). Assessment: 19:40 General: Appears in no apparent distress. uncomfortable, Behavior is calm, cooperative, rr5 appropriate for age. 19:40 Pain: Complains of pain in right femoral area Pain does not radiate. Pain currently is rr5 8 out of 10 on a pain scale. Quality of pain is described as aching, Pain began gradually, Is intermittent. Neuro: Level of Consciousness is awake, alert, Oriented to person, place, time, situation, Appropriate for age. Cardiovascular: Capillary refill < 3 seconds Patient's skin is warm and dry. Respiratory: Airway is patent Respiratory effort is even, unlabored, Respiratory pattern is regular, symmetrical. GI: No signs and/or symptoms were reported involving the gastrointestinal system. : Urine is clear, Reports pain in right in suprapubic area Denies burning with urination, pain. EENT: No signs and/or symptoms were reported regarding the EENT system. Derm: Skin is intact, is healthy with good turgor, Skin temperature is warm. Musculoskeletal: Circulation, motion, and sensation intact. Capillary refill < 3 seconds. 20:34 Reassessment: Patient appears in no apparent distress at this time. Patient is alert, rr5 oriented x 3, equal unlabored respirations, skin warm/dry/pink. discharge instruction given and explained without complaints made. Vital Signs: 19:39 BP 120 / 56; Pulse 66; Resp 16; Temp 97.8; Pulse Ox 100% on R/A; Weight 86.64 kg; aa1 Height 5 ft. 5 in. (165.10 cm); Pain 8/10; 20:15 BP 121 / 62; Pulse 69; Resp 17; Pulse Ox 98% ; rr5 19:39 Body Mass Index 31.78 (86.64 kg, 165.10 cm) aa1 ED Course: 19:28 Patient arrived in ED. cl3 19:29 Modesto Dela Cruz, KB is Primary Nurse. rr5 19:38 Triage completed. aa1 19:39 Arm band placed on right wrist. aa1 19:40 Patient has correct armband on for positive identification. Placed in gown. Bed in low rr5 position. Call light in reach. 19:51 Ingrid Buckley FNP-C is [facility]. kb 19:51 Cody Brice MD is Attending Physician. kb 20:34 No provider procedures requiring assistance completed. Patient did not have IV access rr5 during this emergency room visit. Administered Medications: No medications were administered Outcome: 20:26 Discharge ordered by . kb 20:34 Discharged to home ambulatory. rr5 20:34 Condition: stable 20:34 Discharge instructions given to patient, Instructed on discharge instructions, follow up and referral plans. Demonstrated understanding of instructions, follow-up care. 20:35 Patient left the ED. rr5 Signatures: Ingrid Buckley, ALOK-Jesica DICKINSON-Zee Yu RN RN aa1 Modesto Dela Cruz RN RN rr5 Georgiana Davila cl3
--- NOTE | 2019-08-06 20:27 | EDPHYS ---
Physician Documentation [facility] Name: Camilla Enciso Age: 24 yrs Sex: Female : 1995 Arrival Date: 08/06/2019 Time: 19:28 Bed 8 Private MD: ED Physician Cody Brice HPI: 08/06 21:16 This 24 yrs old Female presents to ER via Ambulatory with complaints of Right kb Side Pain. 21:16 The patient presents with pain, that is acute. The complaints affect the right femoral kb area. Context: The problem was sustained at home, resulted from an unknown cause, the patient can fully bear weight, the patient is able to ambulate, Problem is a result from a previous injury: No. Onset: The symptoms/episode began/occurred today. Modifying factors: The symptoms are alleviated by nothing. the symptoms are aggravated by weight bearing. Associated signs and symptoms: The patient has no apparent associated signs or symptoms. Treatment prior to arrival includes: no previous treatment. Severity of symptoms: At their worst the symptoms were mild, moderate, in the emergency department the symptoms are unchanged. The patient has not experienced similar symptoms in the past. The patient has not recently seen a physician. Pt reports pain in right groin area that radiates down right leg. States pain is worse when she applies pressure to foot (bears weight). Denies abd pain. Pt evaluated and cleared in L\T\D prior to arrival. FHT 145.. 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 - Social history:: Smoking status: Patient/guardian denies using tobacco. - Ebola Screening: : Patient denies exposure to infectious person Patient denies travel to an Ebola-affected area in the 21 days before illness onset. ROS: 21:15 Constitutional: Negative for fever, chills, and weight loss, ENT: Negative for injury, kb pain, and discharge, Neck: Negative for injury, pain, and swelling, Cardiovascular: Negative for chest pain, palpitations, and edema, Respiratory: Negative for shortness of breath, cough, wheezing, and pleuritic chest pain, Abdomen/GI: Negative for abdominal pain, nausea, vomiting, diarrhea, and constipation, Back: Negative for injury and pain, Skin: Negative for injury, rash, and discoloration, Neuro: Negative for headache, weakness, numbness, tingling, and seizure. 21:15 MS/extremity: Positive for pain, of the right femoral area. Exam: 21:15 Constitutional: This is a well developed, well nourished patient who is awake, alert, kb and in no acute distress. Head/Face: Normocephalic, atraumatic. ENT: Nares patent. No nasal discharge, no septal abnormalities noted. Tympanic membranes are normal and external auditory canals are clear. Oropharynx with no redness, swelling, or masses, exudates, or evidence of obstruction, uvula midline. Mucous membranes moist. Neck: Trachea midline, no thyromegaly or masses palpated, and no cervical lymphadenopathy. Supple, full range of motion without nuchal rigidity, or vertebral point tenderness. No Meningismus. Chest/axilla: Normal chest wall appearance and motion. Nontender with no deformity. No lesions are appreciated. Cardiovascular: Regular rate and rhythm with a normal S1 and S2. No gallops, murmurs, or rubs. Normal PMI, no JVD. No pulse deficits. Respiratory: Lungs have equal breath sounds bilaterally, clear to auscultation and percussion. No rales, rhonchi or wheezes noted. No increased work of breathing, no retractions or nasal flaring. Abdomen/GI: Soft, non-tender, with normal bowel sounds. No distension or tympany. No guarding or rebound. No evidence of tenderness throughout. Back: No spinal tenderness. No costovertebral tenderness. Full range of motion. Skin: Warm, dry with normal turgor. Normal color with no rashes, no lesions, and no evidence of cellulitis. MS/ Extremity: Pulses equal, no cyanosis. Neurovascular intact. Full, normal range of motion. Neuro: Awake and alert, GCS 15, oriented to person, place, time, and situation. Cranial nerves II-XII grossly intact. Motor strength 5/5 in all extremities. Sensory grossly intact. Cerebellar exam normal. Normal gait. Vital Signs: 19:39 BP 120 / 56; Pulse 66; Resp 16; Temp 97.8; Pulse Ox 100% on R/A; Weight 86.64 kg; aa1 Height 5 ft. 5 in. (165.10 cm); Pain 8/10; 20:15 BP 121 / 62; Pulse 69; Resp 17; Pulse Ox 98% ; rr5 19:39 Body Mass Index 31.78 (86.64 kg, 165.10 cm) aa1 MDM: 19:52 Patient medically screened. kb 20:21 Data reviewed: vital signs, nurses notes. Data interpreted: Pulse oximetry: on room air kb is 100 %. Interpretation: normal. Counseling: I had a detailed discussion with the patient and/or guardian regarding: the historical points, exam findings, and any diagnostic results supporting the discharge/admit diagnosis, lab results, the need for outpatient follow up, an OB/Gyne specialist, to return to the emergency department if symptoms worsen or persist or if there are any questions or concerns that arise at home. 08/06 20:09 Order name: Urine Dipstick--Ancillary (enter results); Complete Time: 20:27 cm6 08/06 20:09 Order name: Urine --Ancillary (enter results); Complete Time: 20:27 cm6 08/06 19:52 Order name: Urine Dipstick-Ancillary (obtain specimen); Complete Time: 20:21 kb Administered Medications: No medications were administered Disposition: 08/07 06:51 Co-signature as Attending Physician, Cody Brice MD I agree with the assessment and tw4 plan of care. Disposition: 08/06/19 20:26 Discharged to Home. Impression: Pain in right leg. - Condition is Stable. - Discharge Instructions: Musculoskeletal Pain, Pinched Nerve. - Medication Reconciliation Form, Thank You Letter, Antibiotic Education, Prescription Opioid Use form. - Follow up: Emergency Department; When: As needed; Reason: Worsening of condition. Follow up: Private Physician; When: 2 - 3 days; Reason: Recheck today's complaints, Continuance of care, Re-evaluation by your physician. Signatures: Dispatcher [employer] Ingrid Downs, ALOK-C ALOK-Zee Yu RN RN aa1 Cody Brice MD MD tw4 Modesto Dela Cruz RN RN rr5 Corrections: (The following items were deleted from the chart) 08/06 20:31 20:26 08/06/2019 20:26 Discharged to Home. Impression: Pain in right leg. Condition is rr5 Stable. Forms are Medication Reconciliation Form, Thank You Letter, Antibiotic Education, Prescription Opioid Use. Follow up: Emergency Department; When: As needed; Reason: Worsening of condition. Follow up: Private Physician; When: 2 - 3 days; Reason: Recheck today's complaints, Continuance of care, Re-evaluation by your physician. kb 20:35 20:31 08/06/2019 20:26 Discharged to Home. Impression: Pain in right leg. Condition is rr5 Stable. Discharge Instructions: Musculoskeletal Pain, Pinched Nerve. Forms are Medication Reconciliation Form, Thank You Letter, Antibiotic Education, Prescription Opioid Use. Follow up: Emergency Department; When: As needed; Reason: Worsening of condition. Follow up: Private Physician; When: 2 - 3 days; Reason: Recheck today's complaints, Continuance of care, Re-evaluation by your physician. rr5
[2019-08-06 20:40] VITALS: TEMP 97.8
[2019-08-06 20:42] VITALS: BP 121/62; O2SAT 98
== END 2019-08-06 20:35 | disposition home or self-care (01) ==
LOC: ER 19:25
DX: O26.892 Other specified pregnancy related conditions, second trimester (principal); Z3A.22 22 weeks gestation of pregnancy; Z88.5 Allergy status to narcotic agent
CPT/HCPCS: 81003; 81025; 99281

== ENCOUNTER 2019-10-06 17:54 | Emergency (ER) | payer OTHER ==
[2019-10-06] MEDS ORDERED: FENTANYL CITR 100 MCG/2 ML ONE (18:20)
[2019-10-06] MEDS ORDERED: NA CHLORIDE 0.9% 1,000 ML ONE (18:55)
--- NOTE | 2019-10-06 19:26 | RAD REPORT ---
EXAM DESCRIPTION: US - Renal Ultrasound-Complete - 10/06/2019 7:08 pm CLINICAL HISTORY: PAIN COMPARISON: ABDOMINAL EXAM LIMITED dated 10/31/2015None. FINDINGS: The right kidney measures 11.1 x 4.8 x 5.3 cm. The left kidney measures 8.6 x 4.9 x 4.8 c m. Renal cortical thickness and echogenicity are normal. No hydronephrosis or suspicious renal mass. Bladder was contracted limiting assessment. IMPRESSION: No hydronephrosis or suspicious renal mass. No other significant findings.
[2019-10-06 19:36] LABS: Absolute Lymphocytes (CBC) 1.2 K/uL (0.7-4.9); Basophils % 0.1 % (0-1.3); Hematocrit 32.5 % (36.0-45.0); Lymphocytes % 10.2 % (15.3-44.8); MPV 8.5 fL (7.6-11.3); RBC Red Blood Cell Count 3.85 M/uL (3.86-4.86)
[2019-10-06 19:43] LABS: Urine Bacteria <20 /HPF (<20); Urine Culture Reflex Order NOT NEEDED; Urine RBC <5 /HPF (NONE SEEN)
[2019-10-06 19:50] LABS: ALT/SGPT 13 U/L (12-78); AST/SGOT 9 U/L (15-37); Albumin 3.1 g/dL (3.4-5.0); Alkaline Phosphatase 73 U/L (45-117); BUN Blood Urea Nitrogen 11 mg/dL (7-18); Bicarbonate 25 mmol/L (21-32); Bilirubin Direct < 0.1 mg/dL (0-0.2); Bilirubin Total 0.2 mg/dL (0.2-1.0); Glucose Level 98 mg/dL (74-106); Potassium 3.8 mmol/L (3.5-5.1); Protein, Total 7.5 g/dL (6.4-8.2); Sodium Level 140 mmol/L (136-145)
--- NOTE | 2019-10-06 19:55 | EDPHYS ---
Physician Documentation [facility] Name: Camilla Enciso Age: 24 yrs Sex: Female : 1995 Arrival Date: 10/06/2019 Time: 17:56 Bed 7 Private MD: ED Physician Abram Delong HPI: 10/06 18:43 This 24 yrs old Female presents to ER via Wheelchair with complaints of Back snw Pain. 18:43 The patient presents with pain that is acute, with no known mechanism of injury. The snw symptoms are located in the left mid back. Onset: The symptoms/episode began/occurred suddenly. The pain radiates to the posterior aspect of left lateral abdomen and left lower quadrant. Associated signs and symptoms: Pertinent positives: nausea, vomiting. The problem was sustained from unknown cause. Modifying factors: the patient symptoms are aggravated by 31 weeks . Severity of symptoms: At their worst the symptoms were moderate. The patient has not experienced similar symptoms in the past. pt was seen in L\T\D, vag exam done and normal, no contractions, no vaginal bleeding, + movement, no concerns from Obstetrical aspect. 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 - Coronavirus screen:: The patient has NOT traveled to [place] in the past 14 days. The patient has NOT had contact with known/suspected case of Coronavirus?. - Social history:: Smoking status: Patient denies any tobacco usage or history of. - Ebola Screening: : Patient negative for fever greater than or equal to 101.5 degrees Fahrenheit, and additional compatible Ebola Virus Disease symptoms Patient denies exposure to infectious person Patient denies travel to an Ebola-affected area in the 21 days before illness onset No symptoms or risks identified at this time. ROS: 18:41 Constitutional: Negative for fever, chills, and weight loss, Eyes: Negative for injury, snw pain, redness, and discharge, ENT: Negative for injury, pain, and discharge, Neck: Negative for injury, pain, and swelling, Cardiovascular: Negative for chest pain, palpitations, and edema, Respiratory: Negative for shortness of breath, cough, wheezing, and pleuritic chest pain, : Negative for injury, bleeding, discharge, and swelling, MS/Extremity: Negative for injury and deformity, Skin: Negative for injury, rash, and discoloration, Neuro: Negative for headache, weakness, numbness, tingling, and seizure. 18:41 Abdomen/GI: Positive for nausea, vomiting, + at 31 weeks, states severe left flank pain radiating around lateral area down to left lower quad. 18:41 Back: Positive for flank pain, on the left. Exam: 18:41 Constitutional: This is a well developed, well nourished patient who is awake, alert, snw and in no acute distress. Head/Face: Normocephalic, atraumatic. Eyes: Pupils equal round and reactive to light, extra-ocular motions intact. Lids and lashes normal. Conjunctiva and sclera are non-icteric and not injected. Cornea within normal limits. Periorbital areas with no swelling, redness, or edema. ENT: Nares patent. No nasal discharge, no septal abnormalities noted. Tympanic membranes are normal and external auditory canals are clear. Oropharynx with no redness, swelling, or masses, exudates, or evidence of obstruction, uvula midline. Mucous membranes moist. Neck: Trachea midline, no thyromegaly or masses palpated, and no cervical lymphadenopathy. Supple, full range of motion without nuchal rigidity, or vertebral point tenderness. No Meningismus. Chest/axilla: Normal chest wall appearance and motion. Nontender with no deformity. No lesions are appreciated. Cardiovascular: Regular rate and rhythm with a normal S1 and S2. No gallops, murmurs, or rubs. Normal PMI, no JVD. No pulse deficits. Respiratory: Lungs have equal breath sounds bilaterally, clear to auscultation and percussion. No rales, rhonchi or wheezes noted. No increased work of breathing, no retractions or nasal flaring. Skin: Warm, dry with normal turgor. Normal color with no rashes, no lesions, and no evidence of cellulitis. MS/ Extremity: Pulses equal, no cyanosis. Neurovascular intact. Full, normal range of motion. Neuro: Awake and alert, GCS 15, oriented to person, place, time, and situation. Cranial nerves II-XII grossly intact. Motor strength 5/5 in all extremities. Sensory grossly intact. Cerebellar exam normal. Normal gait. Psych: Awake, alert, with orientation to person, place and time. Behavior, mood, and affect are within normal limits. 18:41 Abdomen/GI: Inspection: gravid appearance, is noted, Palpation: abdomen is soft and non-tender. 18:41 Back: pain, that is moderate, of the left mid back, CVA tenderness, is absent, muscle spasm, is not present. Vital Signs: 18:01 BP 102 / 69; Pulse 87; Resp 16 S; Temp 97.1(TE); Pulse Ox 100% on R/A; Weight 92.99 kg ca1 (R); Height 5 ft. 5 in. (165.10 cm) (R); 18:41 BP 107 / 74; Pulse 97; Resp 16; Pulse Ox 99% ; bp 19:39 BP 117 / 75; Pulse 76; Resp 18; Pulse Ox 100% ; ea 18:01 Body Mass Index 34.11 (92.99 kg, 165.10 cm) ca1 MDM: 18:15 Patient medically screened. snw 19:56 Data reviewed: vital signs, nurses notes. Data interpreted: Pulse oximetry: on room air snw is 100 %. Interpretation: normal. Counseling: I had a detailed discussion with the patient and/or guardian regarding: the historical points, exam findings, and any diagnostic results supporting the discharge/admit diagnosis, lab results, radiology results, the need for outpatient follow up, to return to the emergency department if symptoms worsen or persist or if there are any questions or concerns that arise at home. Response to treatment: the patient's symptoms have mildly improved after treatment. Special discussion: Based on the history and exam findings, there is no indication for further emergent testing or inpatient evaluation. I discussed with the patient/guardian the need to see the OB Gyne specialist for further evaluation of the symptoms. I discussed with the patient/guardian the need to see the primary care provider for further evaluation of the symptoms. 10/06 18:09 Order name: Urine Culture snw 10/06 18:09 Order name: Urine Microscopic Only; Complete Time: 19:49 snw 10/06 18:31 Order name: Urine Dipstick--Ancillary (enter results); Complete Time: 20:38 dh4 10/06 18:31 Order name: Urine --Ancillary (enter results); Complete Time: 20:38 dh4 10/06 18:46 Order name: CBC with Diff; Complete Time: 20:12 snw 10/06 18:46 Order name: Chem 7 snw 10/06 18:09 Order name: Urine Test (obtain specimen); Complete Time: 18:28 snw 10/06 18:09 Order name: Urine Dipstick-Ancillary (obtain specimen); Complete Time: 18:28 snw 10/06 18:46 Order name: US Rp Exam Complete snw 10/06 18:46 Order name: LFT's snw 10/06 20:07 Order name: US; Complete Time: 20:09 EDMS 10/06 20:12 Order name: CBC Smear Scan; Complete Time: 20:12 EDMS Administered Medications: 18:20 Drug: fentaNYL (PF) 25 mcg Route: IM; Site: left deltoid; bp 19:24 Drug: NS 0.9% 1000 ml Route: IV; Rate: 1 bolus; Site: right antecubital; ea Disposition: 10/07 07:04 Co-signature as Attending Physician, Abram Delong MD. rn Disposition: 10/06/19 19:54 Discharged to Home. Impression: Unspecified renal colic - Left, state. - Condition is Stable. - Discharge Instructions: Abdominal Pain During , Renal Colic, Third Trimester of , [id number], Dietary Guidelines to Help Prevent Kidney Stones, Rehydration, Adult. - Work release form, Medication Reconciliation Form, Thank You Letter, Antibiotic Education, Prescription Opioid Use form. - Follow up: Emergency Department; When: As needed; Reason: Worsening of condition. Follow up: Private Physician; When: 1 - 2 days; Reason: Recheck today's complaints, Continuance of care, Re-evaluation by your physician. Signatures: Dispatcher [employer] EDMS Kadi Almaguer, SALES SERVICE PROMOTER-C SALES SERVICE PROMOTER-Csnw Abram Delong MD MD rn Bryson, James RN KB jbTricia Sultana RN RN ea Peltier, Brian, RN RN bp Wilma Candelario RN RN ca1 Corrections: (The following items were deleted from the chart) 10/06 20:49 19:54 10/06/2019 19:54 Discharged to Home. Impression: Unspecified renal colic - Left; jb4 state. Condition is Stable. Forms are Medication Reconciliation Form, Thank You Letter, Antibiotic Education, Prescription Opioid Use. Follow up: Emergency Department; When: As needed; Reason: Worsening of condition. Follow up: Private Physician; When: 1 - 2 days; Reason: Recheck today's complaints, Continuance of care, Re-evaluation by your physician. snw
--- NOTE | 2019-10-06 19:55 | ER ---
Nurse's Notes [facility] Name: Camilla Enciso Age: 24 yrs Sex: Female : 1995 Arrival Date: 10/06/2019 Time: 17:56 Bed 7 Private MD: Diagnosis: Unspecified renal colic-Left; state Presentation: 10/06 17:58 Presenting complaint: Patient states: L abdominal pain radiating to the back started ca1 this morning. Reports N/V. 31 wks . Went to L\T\D, cleared. They said probably kidney stones. Transition of care: patient was not received from another setting of care. Onset of symptoms was October 06, 2019. Risk Assessment: Do you want to hurt yourself or someone else? Patient reports no desire to harm self or others. Initial Sepsis Screen: Does the patient meet any 2 criteria? No. Patient's initial sepsis screen is negative. Does the patient have a suspected source of infection? No. Patient's initial sepsis screen is negative. Care prior to arrival: None. 17:58 Method Of Arrival: Wheelchair ca1 17:58 Acuity: ALFREDITO 3 ca1 Triage Assessment: 18:00 General: Appears in no apparent distress. uncomfortable, GRAVID. Behavior is bp cooperative, appropriate for age, anxious. Pain: Complains of pain in left flank. EENT: No deficits noted. Neuro: No deficits noted. Cardiovascular: No deficits noted. Respiratory: No deficits noted. GI: No signs and/or symptoms were reported involving the gastrointestinal system. : No signs and/or symptoms were reported regarding the genitourinary system. Derm: No deficits noted. Musculoskeletal: Circulation, motion, and sensation intact. Range of motion: intact in all extremities. 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 - Coronavirus screen:: The patient has NOT traveled to [employer] in the past 14 days. The patient has NOT had contact with known/suspected case of Coronavirus?. - Social history:: Smoking status: Patient denies any tobacco usage or history of. - Ebola Screening: : Patient negative for fever greater than or equal to 101.5 degrees Fahrenheit, and additional compatible Ebola Virus Disease symptoms Patient denies exposure to infectious person Patient denies travel to an Ebola-affected area in the 21 days before illness onset No symptoms or risks identified at this time. Screenin:20 Abuse screen: Denies threats or abuse. Denies injuries from another. Nutritional bp screening: No deficits noted. Tuberculosis screening: No symptoms or risk factors identified. Fall Risk None identified. Assessment: 18:21 General: SEE TRIAGE NOTE. Neuro: Level of Consciousness is awake, alert, obeys bp commands, Oriented to person, place, time, situation, Appropriate for age. 18:55 Reassessment: U/S AT B/S. bp 19:33 General: Appears uncomfortable, Behavior is calm, cooperative, appropriate for age. ea Pain: Complains of pain in right lower quadrant and left lower quadrant. Neuro: Level of Consciousness is awake, alert, obeys commands, Oriented to person, place, time, situation. Cardiovascular: Patient's skin is warm and dry. Respiratory: Airway is patent Respiratory effort is even, unlabored, Respiratory pattern is regular, symmetrical. Derm: Skin is pink, warm \T\ dry. Musculoskeletal: Circulation, motion, and sensation intact. 20:07 Reassessment: Patient and/or family updated on plan of care and expected duration. Pain ea level reassessed. Patient is alert, oriented x 3, equal unlabored respirations, skin warm/dry/pink. Awaiting for IV fluids to complete. 20:50 Reassessment: Patient and/or family updated on plan of care and expected duration. Pain ea level reassessed. Patient is alert, oriented x 3, equal unlabored respirations, skin warm/dry/pink. Discharge instruction given to patient, verbalized the understanding of instruction. Vital Signs: 18:01 BP 102 / 69; Pulse 87; Resp 16 S; Temp 97.1(TE); Pulse Ox 100% on R/A; Weight 92.99 kg ca1 (R); Height 5 ft. 5 in. (165.10 cm) (R); 18:41 BP 107 / 74; Pulse 97; Resp 16; Pulse Ox 99% ; bp 19:39 BP 117 / 75; Pulse 76; Resp 18; Pulse Ox 100% ; ea 18:01 Body Mass Index 34.11 (92.99 kg, 165.10 cm) ca1 ED Course: 17:56 Patient arrived in ED. rg4 18:00 Triage completed. ca1 18:01 Arm band placed on right wrist. ca1 18:05 Marquis Byrd, RN is Primary Nurse. bp 18:09 Kadi Almaguer FNP-C is PHCP. snw 18:09 Abram Delong MD is Attending Physician. snw 18:20 Patient has correct armband on for positive identification. Bed in low position. Call bp light in reach. Side rails up X2. Adult w/ patient. 19:20 Inserted saline lock: 20 gauge in right antecubital area, using aseptic technique. jp3 Blood collected. 19:20 Initial lab(s) drawn, by nd, sent to lab. Urine collected: clean catch specimen, clear, jp3 jud colored. 19:23 CBC with Diff Sent. jp3 19:24 Chem 7 Sent. jp3 19:24 LFT's Sent. jp3 19:24 Urine --Ancillary (enter results) Sent. jp3 20:45 No provider procedures requiring assistance completed. IV discontinued, intact, ea bleeding controlled, No redness/swelling at site. Pressure dressing applied. Administered Medications: 18:20 Drug: fentaNYL (PF) 25 mcg Route: IM; Site: left deltoid; bp 19:24 Drug: NS 0.9% 1000 ml Route: IV; Rate: 1 bolus; Site: right antecubital; ea Outcome: 19:54 Discharge ordered by . snw 20:49 Patient left the ED. jb4 20:50 Discharged to home ambulatory, with family. ea 20:50 Condition: stable 20:50 Discharge instructions given to patient, Instructed on discharge instructions, follow up and referral plans. Demonstrated understanding of instructions, follow-up care. Signatures: Kadi Almaguer FNP-C FNP-Christal Mcnally rg4 Hakan Muller RN RN jb4 Tricia Campos RN RN ea Peltier, Brian, RN Benjy Nielson jp3 Wilma Candelario RN RN ca1
[2019-10-06 20:08] LABS: Platelet Estimate ADEQ; Urine White Blood Cell Casts OK
[2019-10-06 20:09] LABS: Blood Morphology Comment NOT SEEN (NOT SEEN)
[2019-10-06 20:36] LABS: Urine Blood NEGATIVE (NEG); Urine Glucose NEGATIVE (NEG); Urine Protein 1+ (NEG); Urine Specific Gravity 1.015 (1.005-1.030); Urine pH 8.5 (5.0-7.0)
[2019-10-06 21:13] VITALS: TEMP 97.1
[2019-10-06 21:16] VITALS: BP 117/75; O2SAT 100
== END 2019-10-06 20:49 | disposition home or self-care (01) ==
LOC: ER 17:54
DX: N23 Unspecified renal colic (principal); O99.013 Anemia complicating pregnancy, third trimester; Z3A.31 31 weeks gestation of pregnancy; Z88.5 Allergy status to narcotic agent
CPT/HCPCS: 99218; 87088; 85025; 87086; 80048; 36415; 81025; 80076; 76770; 96372; 99283; J3010; J7030; 81003; 81015

== ENCOUNTER 2023-02-11 06:55 | Day surgery (SDC) | payer OTHER ==
[2023-02-08 14:39] LABS: Absolute Lymphocytes (CBC) 2.3 K/uL (0.7-4.9); Hematocrit 37.4 % (36.0-45.0); Lymphocytes % 32.9 % (15.3-44.8); MCV 85.5 fL (80-100); RBC Red Blood Cell Count 4.38 M/uL (3.86-4.86)
[2023-02-08 15:03] LABS: ALT/SGPT 30 U/L (13-56); AST/SGOT 14 U/L (15-37); Albumin 4.2 g/dL (3.4-5.0); Alkaline Phosphatase 60 U/L (45-117); BUN Blood Urea Nitrogen 22 mg/dL (7-18); Bicarbonate 27 mEq/L (21-32); Bilirubin Total 0.2 mg/dL (0.2-1.0); Glomerular Filtration Rate 113 ml/min (=/>90); Glucose Level 89 mg/dL (74-106); Lipase 62 U/L (13-75); Potassium 3.7 mEq/L (3.5-5.1); Protein, Total 7.8 g/dL (6.4-8.2); Sodium Level 136 mEq/L (136-145)
[2023-02-08 15:05] LABS: Bilirubin Direct < 0.1 mg/dL (0-0.2); Bilirubin Indirect, Calculated ND mg/dL (0.2-0.8)
[2023-02-11] MEDS ORDERED: Ringers Lactate 1,000 ML IV ONE (07:23)
[2023-02-11] MEDS ORDERED: FENTANYL CITR 100 MCG/2 ML ONE (07:36)
[2023-02-11] MEDS ORDERED: ONDANSETRON 4 MG/2 ML VIAL ONE ×3 (07:37→10:59)
[2023-02-11] MEDS ORDERED: LIDOCAINE 2% MPF 5 ML VIAL ONE (07:37)
[2023-02-11] MEDS ORDERED: ROCURONIUM 50 MG/5 ML VIAL IV ONE (07:37)
[2023-02-11] MEDS ORDERED: MIDAZOLAM HCL 2 MG/2 ML INJ ONE (07:37)
[2023-02-11] MEDS ORDERED: propofoL 200 MG/20 ML VIAL IV ONE (07:37)
[2023-02-11] MEDS ORDERED: dexAMETHasone 4 MG/ML VIAL ONE (07:39)
[2023-02-11] MEDS: CEFOXITIN SODIUM 1 GM/VIAL ONE ×2 (08:01→08:28)
[2023-02-11] MEDS ORDERED: GLYCOPYRROLATE 0.2 MG/ML SYR ONE (09:00)
[2023-02-11] MEDS ORDERED: NEOSTIGMINE 1 MG/ML -10 ML VIAL ONE (09:00)
--- NOTE | 2023-02-11 09:02 | P.BOP ---
Preoperative diagnosis: biliary dyskinesia, RUQ abd pain Postoperative diagnosis: same Primary procedure: Laparoscopic cholecystectomy Estimated blood loss: <10cc Specimen: gb Findings: as above Anesthesia: General Complications: None Transferred to: Recovery Room Condition: Good
[2023-02-11] MEDS: HYDROMORPHONE HCL 1 MG/ML INJ ONE ×2 (09:27→09:36)
[2023-02-11] MEDS ORDERED: TRAMADOL 37.5mg/APAP 325mg PER TAB PO ONE (10:04)
[2023-02-11] MEDS ORDERED: TRAMADOL 37.5mg/APAP 325mg PER TAB ONE (11:07)
[2023-02-11 11:09] VITALS: BP 122/80; TEMP 97; O2SAT 99
--- NOTE | 2023-02-11 11:25 | OP ---
Date of Procedure: 02/11/2023 Surgeon: Scotty Garcia MD Preoperative Diagnoses: Biliary dyskinesia, right upper quadrant abdominal pain. Postoperative Diagnoses: Biliary dyskinesia, right upper quadrant abdominal pain. Procedure: Laparoscopic cholecystectomy. Specimen: Gallbladder. Estimated Blood Loss: Less than 10 mL. Anesthesia: General plus local. Indication: This is the case of a 28-year-old patient, who comes to us with the above diagnoses. I fully explained the benefits, alternatives, and risks of laparoscopic possible open cholecystectomy, which include, but not limited to infection, bleeding, damage to adjacent structures, anesthesia comp lication, choledocholithiasis, bile leak, pancreatitis, LA, and even . She also understands thi s may not relieve any symptoms. She might need more than one surgical intervention. She understood, signed a consent. Procedure In Detail: The patient was brought to the operating room, placed in supine position. Anes thesia was induced without complication. Abdominal area was prepped and draped in the usual sterile fashion. Marcaine 0.5% was injected for local anesthetic followed by sharp incision of the skin in t he infraumbilical region. The incision was carried down to fascia, which was opened under direct vis ion. Peritoneum was encountered, opened under direct vision. Vicryl #1 placed inside the fascia. H asson trocar was carefully introduced. Pneumoperitoneum was obtained. I placed 3 more trocars, 5 mm each one of them in the epigastric and right upper quadrant area under direct visualization. This a llowed me to put a grasper in the fundus of the gallbladder, another grasper in the infundibulum retr acting the gallbladder in the inferolateral fashion, exposing the triangle of Calot, and obtaining cr itical view. Cystic duct and cystic artery were clearly isolated, freed circumferentially, and a con nection between those and the gallbladder were clearly identified. I proceeded to ligate those by us ing at least 3 clips proximal, 1 clip distal, ligation in middle. Same was done with the cystic linda ry. No bile leak, no bleeding. The gallbladder was removed from liver using Bovie cauterizer and re moved from abdominal cavity using EndoCatch through the umbilical incision. The area was revised onc e again. No bile leak, no bleeding. Clips were intact. At that moment, I proceeded to remove the t rocars under direct vision. Deflated pneumoperitoneum. Closed the fascia with #1 Vicryl. Irrigated subcutaneous tissue, closed that with 3-0 chromic and skin with 3-0 chromic in a subcuticular fashio n and Steri-Strips on top. Sponge count, instrument counts correct. The patient tolerated the proce dure well. The patient sent to recovery in stable condition. CELESTE/ARACELIS Voice ID: [id number] Report ID: [id number]
--- NOTE | 2023-02-11 11:25 | DS ---
Diagnoses: Biliary dyskinesia, right upper quadrant abdominal pain. Procedure: Laparoscopic cholecystectomy. Disposition: Home. Activity: As tolerated. No heavy lifting. Plan: Follow up in my office in 1 week. Call for appointment at [phone]. Keep area dry for 48 jessica rs, then may shower. Keep Steri-Strip intact. Medications: See orders. CELESTE/ARACELIS Voice ID: [id number] Report ID: [id number]
== END 2023-02-11 11:50 | disposition home or self-care (01) ==
LOC: OR 06:55
PROVIDERS: ATTEND Surgery
PROC: 0FT44ZZ Resection of Gallbladder, Percutaneous Endoscopic Approach (ICD-10-PCS; principal; 2023-02-11 08:30)
DX: K81.1 Chronic cholecystitis (principal); R10.11 Right upper quadrant pain; K82.8 Other specified diseases of gallbladder
CPT/HCPCS: 47562; 85025; 80048; 36415; 81025; 80076; 88304; 83690; J2704; J1100; J2710; J2001; J2250; J3010; J1170; J0694; J2405 ×3; J7120

== ENCOUNTER 2023-12-27 18:32 | Emergency (ER) | payer OTHER ==
--- OUTSIDE RECORDS SUMMARY | 2023-12-27 18:37 | XMS REPORT | Continuity of Care Document ---
Author Name Unknown Address [address] [facility]. 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 Role Phone LAINE DURBIN Primary Care Physician Unavailab Laine Joseph Attending Clinician Unavailable Fermin Warren Attending Clinician Unavailable JUDI FRASER Attending Clinician UnavailJudi Cabral CNM Attending Clinician YAMILETH BARONE Attending Clinician Unavail able Lab, [facility] Attending Clinician Unavailable Yamileth Gavin Attending Clinician + Doctor Unassigned, [place] Attending Clinician U navailable KENDRA DIXON Attending Clinician Unavailab Kendra Sellers DO Attending Clinician [phone] RADIOLOGY Attending Clinician Unavailable Radiology Attending Clinician Unavailable CHANELL ANN Attending Clinician Unavailable Nurse, Melvin Urgent Attending Clinician Unavailabl e Only, Melvin Test Attending Clinician Unavailable Tanmay Velasco MD Attending Clinician TANMAY VELASCO Attending Clinician Unavailable Lab, Adc Fam Pob I Attending Clinician Unavailab le Pob1, [facility] Attending Clinician Unav Chanell Ordonez Attending Clinician [phone] Fermin Warren Admitting Clinician Unavailable JOSE ALBERTO ANDRADE Admitting Clinician Unavailab le Payers Payer Name Policy Type Policy Number Effective Date Expirati on Date Source [facility] [id number] 2023 00:00:00 MEDICAID PENDING PENDING 2023 00:00:00 [place] [id number] 2023 00:00:00 [employer] OUT OF NETWORK [id number] 2020 00:00:00 Problems Condition Name Condition Details Condition Category Status Onset Date Resolution Date Last Treatment Date Treating Clinician Comments Source History of miscarriag e, currently History of miscarriag e, currently Disease Active 12-16 00:00: 00 [facility] Type 2 diabetes mellitus during Type 2 diabetes mellitus during Disease Active 12-16 00:00: 00 [facility] related nausea, antepartum related nausea, antepartum Disease Active 12-16 00:00: 00 [facility] Mixed anxiety and depressive disorder Mixed anxiety and depressive disorder Disease Active 2022-08 00:00: 00 [facility] Type 2 diabetes mellitus without complicati ons Type 2 diabetes mellitus without complicati ons Disease Active 2022-08 00:00: 00 [facility] Previous delivery affecting , antepartum Previous delivery affecting , antepartum Disease Active 2022-08 00:00: 00 Overview: Formattin g of this note might be different from the original. 0 LTCS for arrest of labor [facility] Tubal ligation status Tubal ligation status Disease Active 2022-08 00:00: 00 [facility] Decline flu vaccine Decline flu vaccine Disease Active 2022-08 00:00: 00 [facility] Abnormal maternal glucose tolerance, antepartum Abnormal maternal glucose tolerance, antepartum Disease Active 04-23 00:00: 00 Overview: Formattin g of this note might be different from the original. Passed 3 hr gtt [facility] Rubella non-immune status, antepartum Rubella non-immune status, antepartum Disease Active 04-13 00:00: 00 Overview: Formattin g of this note might be different from the original. Address pp [facility] Supervisio n of high-risk Supervisio n of high-risk Disease Active 04-10 00:00: 00 [facility] History of anxiety History of anxiety Disease Active 04-10 00:00: 00 [facility] History of depression History of depression Disease Active 04-10 00:00: 00 Overview: Formattin g of this note might be different from the original. Not on meds [facility] H/O bariatric surgery H/O bariatric surgery Disease Active 04-10 00:00: 00 Overview: Formattin g of this note might be different from the original. Gastric sleeve, and lipo [facility] Obesity in Obesity in Disease Active 04-10 00:00: 00 [facility] Obesity affecting Obesity affecting Disease Active 04-10 00:00: 00 [facility] Type II diabetes mellitus well controlled Diabetes type 2, controlled Problem [facility] [id number] Obesity (BMI 30.0-34.9) Problem [facility] [id number] Mixed hyperlipid emia Problem [facility] Iron deficiency anemia secondary to inadequate dietary iron intake Iron deficiency anemia secondary to inadequate dietary iron intake Problem [facility] [id number] S/P gastrectom y Problem [facility] [id number] Iron deficiency anemia due to chronic blood loss Problem [facility] [id number] Unable to concentrat e Problem [facility] [id number] Seasonal allergic rhinitis, unspecifie d trigger Problem [facility] [id number] Chronic sinusitis, unspecifie d location Problem [facility] [id number] Vitamin D deficiency Problem [facility] [id number] Insomnia, unspecifie d type Problem [facility] Allergic rhinitis Non-season al allergic rhinitis, unspecifie d trigger Problem [facility] [id number] Leukopenia , unspecifie d type Problem [facility] Allergies, Adverse Reactions, Alerts Allergy Name Allergy Type Status Severity Reaction(s) Onset Date Inactive Date Treating Clinician Comments Source Codeine Propensi ty to adverse reaction s Active Nausea and/or Vomiting 08-31 00:00: 00 [facility] CODEINE DRUG INGREDI Active N/V 08-31 00:00: 00 [facility] hydrocod one DA Active [facility] 12-08 00:00: 00 [facility] hydrocod one DA Active [facility] vomiting 12-08 00:00: 00 [facility] Hydrocod one Drug Allergy Active Nausea and/or Vomiting 04-10 00:00: 00 Fever, cold sweats per patient. [facility] HYDROCOD ONE DRUG INGREDI Active N/V 04-10 00:00: 00 [facility] Social History Social Habit Start Date Stop Date Quantity Comments Source ASSERTION 2023-11-26 00:00:00 [facility] Sex Assigned At [facility] History of Tobacco Use [facility] History SDOH Alcohol Std Drinks [facility] History SDOH Alcohol Binge [facility] 2023-12-17 00:00:00 2023-12-17 00:00:00 Lifetime non-drinker (finding) [facility] Tobacco use and exposure 2023-07-17 00:00:00 2023-07-17 00:00:00 Smokeless tobacco non-user [facility] History of Social function 2023-07-17 00:00:00 2023-07-17 00:00:00 [facility] Exposure to SARS-CoV-2 (event) 2022-06-19 00:00:00 2022-06-29 12:26:00 Not sure [facility] History SDOH Alcohol Frequency 2019-04-10 00:00:00 2019-04-10 00:00:00 1 [facility] Smoking Status Start Date Stop Date Source Unknown if ever smoked [facility] Never Smoker [facility] Medications Ordered Medication Name Filled Medication Name Start Date Stop Date Current Medication? Ordering Clinician Indication Dosage Frequency Signature (SIG) Comments Components Source lancets (FREESTYLE LANCETS) 28 gauge Misc 12-16 00:00: 00 Yes [id number] Take blood sugar 4 times a day [facility] Blood-Gluco se Meter (FREESTYLE LITE METER) Kit 12-16 00:00: 00 Yes [id number] Take blood sugar 4 times a day [facility] blood sugar diagnostic (FREESTYLE LITE STRIPS) strip 12-16 00:00: 00 Yes [id number] Take blood sugar 4 times a day [facility] OZEMPIC 0.25 mg or 0.5 mg (2 mg/3 mL) PnIj 12-02 00:00: 00 12-16 00:00 :00 No INJECT 0.5 MG UNDER THE SKIN ONCE A WEEK. [facility] busPIRone 10 mg tablet 2022-08 09:50: 00 07-17 00:00 :00 No 10mg Take 1 tablet by mouth 2 (two) times daily as needed for Other (anxiety). [facility] ferrous sulfate (IRON ORAL) 2022-08 09:45: 49 07-17 00:00 :00 No Take by mouth. [facility] buPROPion XL 150 mg 24 hr tablet 2022-08 09:30: 01 Yes [id number] 150mg Take 1 tablet by mouth in the morning. [facility] Kenalog (Triamcinol one) Kenalog (Triamcinol one) 01-24 00:00: 00 No 40mg [facility] Kenalog (Triamcinol one) Kenalog (Triamcinol one) 01-24 00:00: 00 No 40mg [facility] Kenalog (Triamcinol one) Kenalog (Triamcinol one) 01-24 00:00: 00 No 40mg [facility] Kenalog (Triamcinol one) Kenalog (Triamcinol one) 01-24 00:00: 00 No 40mg [facility] Kenalog (Triamcinol one) Kenalog (Triamcinol one) 01-24 00:00: 00 No 40mg [facility] Kenalog (Triamcinol one) Kenalog (Triamcinol one) 01-24 00:00: 00 No 40mg [facility] Kenalog (Triamcinol one) Kenalog (Triamcinol one) 01-24 00:00: 00 No 40mg [facility] Kenalog (Triamcinol one) Kenalog (Triamcinol one) 01-24 00:00: 00 No 40mg [facility] Kenalog (Triamcinol one) Kenalog (Triamcinol one) 01-24 00:00: 00 No 40mg [facility] Kenalog (Triamcinol one) Kenalog (Triamcinol one) 01-24 00:00: 00 No 40mg [facility] Kenalog (Triamcinol one) Kenalog (Triamcinol one) 01-24 00:00: 00 No 40mg [facility] Kenalog (Triamcinol one) Kenalog (Triamcinol one) 0 6-08 00:00: 00 No 40mg [facility] Kenalog (Triamcinol one) Kenalog (Triamcinol one) 0 6-08 00:00: 00 No 40mg [facility] Kenalog (Triamcinol one) Kenalog (Triamcinol one) 0 6-08 00:00: 00 No 40mg [facility] Kenalog (Triamcinol one) Kenalog (Triamcinol one) 0 6 00:00: 00 No 40mg [facility] Kenalog (Triamcinol one) Kenalog (Triamcinol one) 0 6-08 00:00: 00 No 40mg [facility] Kenalog (Triamcinol one) Kenalog (Triamcinol one) 6 00:00: 00 No 40mg [facility] Kenalog (Triamcinol one) Kenalog (Triamcinol one) 0 608 00:00: 00 No 40mg [facility] Ozempic (0.25 or 0.5 MG/DOSE) 2 MG/3ML Ozempic (0.25 or 0.5 MG/DOSE) 2 MG/3ML 0 4-19 00:00: 00 No Ozempic (0.25 or 0.5 MG/DOSE) 2 MG/3ML Vitamin D3 37603 UNIT Vitamin D3 28438 UNIT 2021-08 0-04 00:00: 00 08-19 00:00 :00 No 1{capsu le} Vitamin D3 80617 UNIT Vitamin D3 64720 UNIT Vitamin D3 36816 UNIT 2021-08 0-04 00:00: 00 08-19 00:00 :00 No 1{capsu le} Vitamin D3 96373 UNIT Vitamin D3 51388 UNIT Vitamin D3 20156 UNIT 2021-08 0-04 00:00: 00 08-19 00:00 :00 No 1{capsu le} Vitamin D3 16772 UNIT Vitamin D3 85003 UNIT Vitamin D3 05528 UNIT 2021-08 0-04 00:00: 00 08-19 00:00 :00 No 1{capsu le} Vitamin D3 70868 UNIT Vitamin D3 52900 UNIT Vitamin D3 53402 UNIT 2021-08 0-04 00:00: 00 08-19 00:00 :00 No 1{capsu le} Vitamin D3 80328 UNIT Macrobid 100 MG Macrobid 100 MG 05-11 00:00: 00 05-16 00:00 :00 No BID Macrobid 100 MG Macrobid 100 MG Macrobid 100 MG 05-11 00:00: 00 05-16 00:00 :00 No BID Macrobid 100 MG buPROPion HCl ER (XL) 150 MG buPROPion HCl ER (XL) 150 MG 05-04 00:00: 00 No 1{table t_in_th e_morni ng} QD buPROPion HCl ER (XL) 150 MG buPROPion HCl ER (XL) 150 MG buPROPion HCl ER (XL) 150 MG 05-04 00:00: 00 No 1{table t_in_th e_morni ng} QD buPROPion HCl ER (XL) 150 MG Fluoxetine HCl Fluoxetine HCl 04-21 00:00: 00 Yes Laine Durbin 1 capsule [facility] clotrimazol e 1 % vaginal cream 05-08 00:00: 00 07-17 00:00 :00 No [id number] 1{appli cator} Insert 1 Applicator into vagina at bedtime. [facility] ferrous sulfate (IRON ORAL) 04-10 20:14: 05 Yes Take by mouth. [facility] ferrous sulfate (IRON ORAL) 04-10 15:14: 05 Yes Take by mouth. [facility] Vitamin D3 Vitamin D3 01-16 00:00: 00 Yes Laine Durbin 1 capsule [facility] Vitamin D3 14400 UNIT Vitamin D3 98062 UNIT 01-16 00:00: 00 No 1{capsu le} Vitamin D3 46754 UNIT Kenalog (Triamcinol one) Kenalog (Triamcinol one) 2017-08 00:00: 00 No 40mg [facility] Kenalog (Triamcinol one) Kenalog (Triamcinol one) 2017-08 00:00: 00 No 40mg [facility] Kenalog (Triamcinol one) Kenalog (Triamcinol one) 2017-08 00:00: 00 No 40mg [facility] Kenalog (Triamcinol one) Kenalog (Triamcinol one) 2017-08 00:00: 00 No 40mg [facility] Kenalog (Triamcinol one) Kenalog (Triamcinol one) 2017-08 00:00: 00 No 40mg [facility] Kenalog (Triamcinol one) Kenalog (Triamcinol one) 2017-08 00:00: 00 No 40mg [facility] Kenalog (Triamcinol one) Kenalog (Triamcinol one) 2017-08 00:00: 00 No 40mg [facility] Kenalog (Triamcinol one) Kenalog (Triamcinol one) 2017-08 00:00: 00 No 40mg [facility] Kenalog (Triamcinol one) Kenalog (Triamcinol one) 2017-08 00:00: 00 No 40mg [facility] Kenalog (Triamcinol one) Kenalog (Triamcinol one) 2017-08 00:00: 00 No 40mg [facility] Kenalog (Triamcinol one) Kenalog (Triamcinol one) 2017-08 00:00: 00 No 40mg [facility] Kenalog (Triamcinol one) Kenalog (Triamcinol one) 2017-08 00:00: 00 No 40mg [facility] Kenalog (Triamcinol one) Kenalog (Triamcinol one) 2017-08 00:00: 00 No 40mg [facility] Kenalog (Triamcinol one) Kenalog (Triamcinol one) 2017-08 00:00: 00 No 40mg [facility] Kenalog (Triamcinol one) Kenalog (Triamcinol one) 2017-08 00:00: 00 No 40mg [facility] Kenalog (Triamcinol one) Kenalog (Triamcinol one) 2017-08 00:00: 00 No 40mg [facility] Kenalog (Triamcinol one) Kenalog (Triamcinol one) 2017-08 00:00: 00 No 40mg [facility] Kenalog (Triamcinol one) Kenalog (Triamcinol one) 2017-08 00:00: 00 No 40mg [facility] Kenalog (Triamcinol one) Kenalog (Triamcinol one) 2017-08 00:00: 00 No 40mg [facility] Kenalog (Triamcinol one) Kenalog (Triamcinol one) 2017-08 00:00: 00 No 40mg [facility] Kenalog (Triamcinol one) Kenalog (Triamcinol one) 2017-08 00:00: 00 No 40mg [facility] Kenalog (Triamcinol one) Kenalog (Triamcinol one) 2017-08 00:00: 00 No 40mg [facility] Kenalog (Triamcinol one) Kenalog (Triamcinol one) 2017-08 00:00: 00 No 40mg [facility] Kenalog (Triamcinol one) Kenalog (Triamcinol one) 2017-08 00:00: 00 No 40mg [facility] Kenalog (Triamcinol one) Kenalog (Triamcinol one) 2017-08 00:00: 00 No 40mg [facility] Kenalog (Triamcinol one) Kenalog (Triamcinol one) 2017-08 00:00: 00 No 40mg [facility] Kenalog (Triamcinol one) Kenalog (Triamcinol one) 2017-08 00:00: 00 No 40mg [facility] Ferrous Sulfate Ferrous Sulfate Yes Laine Durbin 1 tablet [facility] Trazodone HCl Trazodone HCl Yes Laine Durbin 1 tablet at bedtime [facility] FLUoxetine HCl 20 MG FLUoxetine HCl 20 MG No 1{capsu le} QD FLUoxetine HCl 20 MG traZODone HCl 50 MG traZODone HCl 50 MG No 1{table t_at_be dtime} QD traZODone HCl 50 MG Ferrous Sulfate 325 (65 Fe) MG Ferrous Sulfate 325 (65 Fe) MG No 1{table t} BID Ferrous Sulfate 325 (65 Fe) MG buPROPion HCl ER (XL) 300 MG buPROPion HCl ER (XL) 300 MG No 1{table t_in_th e_morni ng} QD buPROPion HCl ER (XL) 300 MG busPIRone HCl 10 MG busPIRone HCl 10 MG No 1{table t} BID busPIRone HCl 10 MG buPROPion HCl ER (XL) 300 MG buPROPion HCl ER (XL) 300 MG No 1{table t_in_th e_morni ng} QD buPROPion HCl ER (XL) 300 MG busPIRone HCl 10 MG busPIRone HCl 10 MG No 1{table t} BID busPIRone HCl 10 MG traZODone HCl 50 MG traZODone HCl 50 MG No 1{table t_at_be dtime} QD traZODone HCl 50 MG traZODone HCl 50 MG traZODone HCl 50 MG No 1{table t_at_be dtime} QD traZODone HCl 50 MG busPIRone HCl 10 MG busPIRone HCl 10 MG No 1{table t} BID busPIRone HCl 10 MG Mounjaro 2.5 MG/0.5ML Mounjaro 2.5 MG/0.5ML No Mounjaro 2.5 MG/0.5ML buPROPion HCl ER (XL) 300 MG buPROPion HCl ER (XL) 300 MG No 1{table t_in_ e_morni ng} QD buPROPion HCl ER (XL) 300 MG buPROPion HCl ER (XL) 300 MG buPROPion HCl ER (XL) 300 MG No 1{table t_in e_morni ng} QD buPROPion HCl ER (XL) 300 MG busPIRone HCl 10 MG busPIRone HCl 10 MG No 1{table t} BID busPIRone HCl 10 MG buPROPion HCl ER (XL) 300 MG buPROPion HCl ER (XL) 300 MG No 1{table t_in e_morni ng} QD buPROPion HCl ER (XL) 300 MG busPIRone HCl 10 MG busPIRone HCl 10 MG No 1{table t} BID busPIRone HCl 10 MG Vitamin D3 1.25 MG (88037 UT) Vitamin D3 1.25 MG (78295 UT) No Vitamin D3 1.25 MG (57085 UT) Vitamin D3 1.25 MG (30088 UT) Vitamin D3 1.25 MG (13098 UT) No Vitamin D3 1.25 MG (40661 UT) busPIRone HCl 10 MG busPIRone HCl 10 MG No 1{table t} BID busPIRone HCl 10 MG buPROPion HCl ER (XL) 150 MG buPROPion HCl ER (XL) 150 MG No 1{table t_in e_morni ng} QD buPROPion HCl ER (XL) 150 MG Ozempic (1 MG/DOSE) 4 MG/3ML Ozempic (1 MG/DOSE) 4 MG/3ML No Ozempic (1 MG/DOSE) 4 MG/3ML traZODone HCl 50 MG traZODone HCl 50 MG No 1{table t_at_be dtime} QD traZODone HCl 50 MG Vitamin D3 1.25 MG (53530 UT) Vitamin D3 1.25 MG (31779 UT) No Vitamin D3 1.25 MG (93832 UT) busPIRone HCl 10 MG busPIRone HCl 10 MG No 1{table t} BID busPIRone HCl 10 MG buPROPion HCl ER (XL) 150 MG buPROPion HCl ER (XL) 150 MG No 1{table t_in e_morni ng} QD buPROPion HCl ER (XL) 150 MG Ozempic (1 MG/DOSE) 4 MG/3ML Ozempic (1 MG/DOSE) 4 MG/3ML No Ozempic (1 MG/DOSE) 4 MG/3ML Vitamin D3 1.25 MG (85589 UT) Vitamin D3 1.25 MG (97314 UT) No Vitamin D3 1.25 MG (61430 UT) busPIRone HCl 10 MG busPIRone HCl 10 MG No 1{table t} BID busPIRone HCl 10 MG buPROPion HCl ER (XL) 150 MG buPROPion HCl ER (XL) 150 MG No 1{table t_in e_morni ng} QD buPROPion HCl ER (XL) 150 MG Ozempic (1 MG/DOSE) 4 MG/3ML Ozempic (1 MG/DOSE) 4 MG/3ML No Ozempic (1 MG/DOSE) 4 MG/3ML Vitamin D3 1.25 MG (70054 UT) Vitamin D3 1.25 MG (09987 UT) No Vitamin D3 1.25 MG (69924 UT) busPIRone HCl 10 MG busPIRone HCl 10 MG No 1{table t} BID busPIRone HCl 10 MG buPROPion HCl ER (XL) 150 MG buPROPion HCl ER (XL) 150 MG No 1{table t_in e_morni ng} QD buPROPion HCl ER (XL) 150 MG Ozempic (1 MG/DOSE) 4 MG/3ML Ozempic (1 MG/DOSE) 4 MG/3ML No Ozempic (1 MG/DOSE) 4 MG/3ML Vitamin D3 1.25 MG (54208 UT) Vitamin D3 1.25 MG (67639 UT) No Vitamin D3 1.25 MG (64710 UT) busPIRone HCl 10 MG busPIRone HCl 10 MG No 1{table t} BID busPIRone HCl 10 MG buPROPion HCl ER (XL) 150 MG buPROPion HCl ER (XL) 150 MG No 1{table t_in e_morni ng} QD buPROPion HCl ER (XL) 150 MG Ozempic (1 MG/DOSE) 4 MG/3ML Ozempic (1 MG/DOSE) 4 MG/3ML No Ozempic (1 MG/DOSE) 4 MG/3ML Vitamin D3 1.25 MG (15855 UT) Vitamin D3 1.25 MG (45430 UT) No Vitamin D3 1.25 MG (38408 UT) busPIRone HCl 10 MG busPIRone HCl 10 MG No 1{table t} BID busPIRone HCl 10 MG buPROPion HCl ER (XL) 150 MG buPROPion HCl ER (XL) 150 MG No 1{table t_in_th e_morni ng} QD buPROPion HCl ER (XL) 150 MG Ozempic (1 MG/DOSE) 4 MG/3ML Ozempic (1 MG/DOSE) 4 MG/3ML No Ozempic (1 MG/DOSE) 4 MG/3ML Vitamin D3 1.25 MG (11217 UT) Vitamin D3 1.25 MG (68612 UT) No Vitamin D3 1.25 MG (97650 UT) busPIRone HCl 10 MG busPIRone HCl 10 MG No 1{table t} BID busPIRone HCl 10 MG buPROPion HCl ER (XL) 150 MG buPROPion HCl ER (XL) 150 MG No 1{table t_in_th e_morni ng} QD buPROPion HCl ER (XL) 150 MG Ozempic (1 MG/DOSE) 4 MG/3ML Ozempic (1 MG/DOSE) 4 MG/3ML No Ozempic (1 MG/DOSE) 4 MG/3ML Vitamin D3 1.25 MG (14909 UT) Vitamin D3 1.25 MG (43422 UT) No Vitamin D3 1.25 MG (49669 UT) busPIRone HCl 10 MG busPIRone HCl 10 MG No 1{table t} BID busPIRone HCl 10 MG buPROPion HCl ER (XL) 150 MG buPROPion HCl ER (XL) 150 MG No 1{table t_in_th e_morni ng} QD buPROPion HCl ER (XL) 150 MG Ozempic (1 MG/DOSE) 4 MG/3ML Ozempic (1 MG/DOSE) 4 MG/3ML No Ozempic (1 MG/DOSE) 4 MG/3ML Vitamin D3 1.25 MG (79708 UT) Vitamin D3 1.25 MG (81733 UT) No Vitamin D3 1.25 MG (72093 UT) busPIRone HCl 10 MG busPIRone HCl 10 MG No 1{table t} BID busPIRone HCl 10 MG buPROPion HCl ER (XL) 150 MG buPROPion HCl ER (XL) 150 MG No 1{table t_in_th e_morni ng} QD buPROPion HCl ER (XL) 150 MG Ozempic (1 MG/DOSE) 4 MG/3ML Ozempic (1 MG/DOSE) 4 MG/3ML No Ozempic (1 MG/DOSE) 4 MG/3ML Vitamin D3 1.25 MG (26940 UT) Vitamin D3 1.25 MG (81760 UT) No Vitamin D3 1.25 MG (80052 UT) busPIRone HCl 10 MG busPIRone HCl 10 MG No 1{table t} BID busPIRone HCl 10 MG buPROPion HCl ER (XL) 150 MG buPROPion HCl ER (XL) 150 MG No 1{table t_in_th e_morni ng} QD buPROPion HCl ER (XL) 150 MG Ozempic (1 MG/DOSE) 4 MG/3ML Ozempic (1 MG/DOSE) 4 MG/3ML No Ozempic (1 MG/DOSE) 4 MG/3ML Vitamin D3 1.25 MG (42555 UT) Vitamin D3 1.25 MG (04831 UT) No Vitamin D3 1.25 MG (77880 UT) busPIRone HCl 10 MG busPIRone HCl 10 MG No 1{table t} BID busPIRone HCl 10 MG buPROPion HCl ER (XL) 150 MG buPROPion HCl ER (XL) 150 MG No 1{table t_in_th e_morni ng} QD buPROPion HCl ER (XL) 150 MG Ozempic (1 MG/DOSE) 4 MG/3ML Ozempic (1 MG/DOSE) 4 MG/3ML No Ozempic (1 MG/DOSE) 4 MG/3ML Vitamin D3 1.25 MG (59533 UT) Vitamin D3 1.25 MG (08820 UT) No Vitamin D3 1.25 MG (08185 UT) busPIRone HCl 10 MG busPIRone HCl 10 MG No 1{table t} BID busPIRone HCl 10 MG buPROPion HCl ER (XL) 150 MG buPROPion HCl ER (XL) 150 MG No 1{table t_in_ e_morni ng} QD buPROPion HCl ER (XL) 150 MG Ozempic (1 MG/DOSE) 4 MG/3ML Ozempic (1 MG/DOSE) 4 MG/3ML No Ozempic (1 MG/DOSE) 4 MG/3ML Vitamin D3 1.25 MG (50010 UT) Vitamin D3 1.25 MG (59155 UT) No Vitamin D3 1.25 MG (38155 UT) busPIRone HCl 10 MG busPIRone HCl 10 MG No 1{table t} BID busPIRone HCl 10 MG buPROPion HCl ER (XL) 150 MG buPROPion HCl ER (XL) 150 MG No 1{table t_in_ e_morni ng} QD buPROPion HCl ER (XL) 150 MG Ozempic (1 MG/DOSE) 4 MG/3ML Ozempic (1 MG/DOSE) 4 MG/3ML No Ozempic (1 MG/DOSE) 4 MG/3ML buPROPion HCl ER (XL) 300 MG buPROPion HCl ER (XL) 300 MG No 1{table t_in e_morni ng} QD buPROPion HCl ER (XL) 300 MG traZODone HCl 50 MG traZODone HCl 50 MG No 1{table t_at_be dtime} QD traZODone HCl 50 MG busPIRone HCl 10 MG busPIRone HCl 10 MG No 1{table t} BID busPIRone HCl 10 MG Vitamin D3 1.25 MG (27307 UT) Vitamin D3 1.25 MG (30914 UT) No Vitamin D3 1.25 MG (12717 UT) busPIRone HCl 10 MG busPIRone HCl 10 MG No 1{table t} BID busPIRone HCl 10 MG Ozempic (1 MG/DOSE) 4 MG/3ML Ozempic (1 MG/DOSE) 4 MG/3ML No Ozempic (1 MG/DOSE) 4 MG/3ML buPROPion HCl ER (XL) 150 MG buPROPion HCl ER (XL) 150 MG No 1{table t_in_th e_morni ng} QD buPROPion HCl ER (XL) 150 MG Vitamin D3 1.25 MG (21242 UT) Vitamin D3 1.25 MG (98788 UT) No Vitamin D3 1.25 MG (86980 UT) busPIRone HCl 10 MG busPIRone HCl 10 MG No 1{table t} BID busPIRone HCl 10 MG Ozempic (1 MG/DOSE) 4 MG/3ML Ozempic (1 MG/DOSE) 4 MG/3ML No Ozempic (1 MG/DOSE) 4 MG/3ML buPROPion HCl ER (XL) 150 MG buPROPion HCl ER (XL) 150 MG No 1{table t_in e_morni ng} QD buPROPion HCl ER (XL) 150 MG Vitamin D3 1.25 MG (49296 UT) Vitamin D3 1.25 MG (01352 UT) No Vitamin D3 1.25 MG (33200 UT) busPIRone HCl 10 MG busPIRone HCl 10 MG No 1{table t} BID busPIRone HCl 10 MG Ozempic (1 MG/DOSE) 4 MG/3ML Ozempic (1 MG/DOSE) 4 MG/3ML No Ozempic (1 MG/DOSE) 4 MG/3ML buPROPion HCl ER (XL) 150 MG buPROPion HCl ER (XL) 150 MG No 1{table t_in e_morni ng} QD buPROPion HCl ER (XL) 150 MG busPIRone HCl 10 MG busPIRone HCl 10 MG No 1{table t} BID busPIRone HCl 10 MG Ozempic (1 MG/DOSE) 4 MG/3ML Ozempic (1 MG/DOSE) 4 MG/3ML No Ozempic (1 MG/DOSE) 4 MG/3ML buPROPion HCl ER (XL) 150 MG buPROPion HCl ER (XL) 150 MG No 1{table t_in e_morni ng} QD buPROPion HCl ER (XL) 150 MG buPROPion HCl ER (XL) 150 MG buPROPion HCl ER (XL) 150 MG No 1{table t_in e_morni ng} QD buPROPion HCl ER (XL) 150 MG busPIRone HCl 10 MG busPIRone HCl 10 MG No 1{table t} BID busPIRone HCl 10 MG buPROPion HCl ER (XL) 300 MG buPROPion HCl ER (XL) 300 MG No 1{table t_in_th e_morni ng} QD buPROPion HCl ER (XL) 300 MG busPIRone HCl 10 MG busPIRone HCl 10 MG No 1{table t} BID busPIRone HCl 10 MG traZODone HCl 50 MG traZODone HCl 50 MG No 1{table t_at_be dtime} QD traZODone HCl 50 MG buPROPion HCl ER (XL) 300 MG buPROPion HCl ER (XL) 300 MG No 1{table t_in_th e_morni ng} QD buPROPion HCl ER (XL) 300 MG busPIRone HCl 10 MG busPIRone HCl 10 MG No 1{table t} BID busPIRone HCl 10 MG traZODone HCl 50 MG traZODone HCl 50 MG No 1{table t_at_be dtime} QD traZODone HCl 50 MG Immunizations Ordered Immunization Name Filled Immunization Name Date Status Comments Source Flucelvax - single dose syringe Flucelvax - single dose syringe 2022-05-04 16:23:00 Completed [facility] Flucelvax - single dose syringe Flucelvax - single dose syringe 2022-05-04 16:23:00 [facility] Flucelvax - single dose syringe Flucelvax - single dose syringe 2022-05-04 16:23:00 Completed [facility] Flucelvax - single dose syringe Flucelvax - single dose syringe 2022-05-04 16:23:00 Completed [facility] Flucelvax - single dose syringe Flucelvax - single dose syringe 2022-05-04 16:23:00 Completed [facility] Flucelvax - single dose syringe Flucelvax - single dose syringe 2022-05-04 16:23:00 Completed [facility] Flucelvax - single dose syringe Flucelvax - single dose syringe 2022-05-04 16:23:00 Completed [facility] Flucelvax - single dose syringe Flucelvax - single dose syringe 2022-05-04 16:23:00 Completed [facility] Flucelvax - single dose syringe Flucelvax - single dose syringe 2022-05-04 16:23:00 Completed [facility] Flucelvax - single dose syringe Flucelvax - single dose syringe 2022-05-04 16:23:00 Completed [facility] Flucelvax - single dose syringe Flucelvax - single dose syringe 2022-05-04 16:23:00 Completed [facility] Afluria Afluria 2018-06-06 10:26:00 Completed [facility] Afluria Afluria 2018-06-06 10:26:00 Completed [facility] Afluria Afluria 2018-06-06 10:26:00 Completed [facility] Afluria Afluria 2018-06-06 10:26:00 Completed [facility] Afluria Afluria 2018-06-06 10:26:00 Completed [facility] Afluria Afluria 2018-06-06 10:26:00 Completed [facility] Afluria Afluria 2018-06-06 10:26:00 Completed [facility] Afluria Afluria 2018-06-06 10:26:00 Completed [facility] Afluria Afluria 2018-06-06 10:26:00 Completed [facility] Afluria Afluria 2018-06-06 10:26:00 Completed [facility] Afluria Afluria 2018-06-06 10:26:00 Completed [facility] Afluria Afluria 2018-06-06 10:26:00 Completed [facility] Boostrix (Tdap) Boostrix (Tdap) 2018-06-06 10:24:00 Completed [facility] Boostrix (Tdap) Boostrix (Tdap) 2018-06-06 10:24:00 Completed [facility] Boostrix (Tdap) Boostrix (Tdap) 2018-06-06 10:24:00 Completed [facility] Boostrix (Tdap) Boostrix (Tdap) 2018-06-06 10:24:00 Completed [facility] Boostrix (Tdap) Boostrix (Tdap) 2018-06-06 10:24:00 Completed [facility] Boostrix (Tdap) Boostrix (Tdap) 2018-06-06 10:24:00 Completed [facility] Boostrix (Tdap) Boostrix (Tdap) 2018-06-06 10:24:00 Completed [facility] Boostrix (Tdap) Boostrix (Tdap) 2018-06-06 10:24:00 Completed [facility] Boostrix (Tdap) Boostrix (Tdap) 2018-06-06 10:24:00 Completed [facility] Boostrix (Tdap) Boostrix (Tdap) 2018-06-06 10:24:00 Completed [facility] Boostrix (Tdap) Boostrix (Tdap) 2018-06-06 10:24:00 Completed [facility] Boostrix (Tdap) Boostrix (Tdap) 2018-06-06 10:24:00 Completed [facility] HPV 2009-03-01 00:00:00 Completed [facility] HPV 2009-03-01 00:00:00 Completed [facility] HPV 2009-03-01 00:00:00 Completed [facility] HPV 2009-03-01 00:00:00 Completed [facility] HPV 2009-03-01 00:00:00 Completed [facility] HPV 2009-03-01 00:00:00 Completed [facility] HPV 2009-03-01 00:00:00 Completed [facility] HPV 2009-03-01 00:00:00 Completed [facility] HPV 2009-03-01 00:00:00 Completed [facility] HPV 2009-03-01 00:00:00 Completed [facility] HPV 2009-03-01 00:00:00 Completed [facility] HPV 2009-03-01 00:00:00 Completed [facility] HPV 2009-03-01 00:00:00 Completed [facility] HPV 2009-03-01 00:00:00 Completed [facility] Afluria Afluria Unknown Completed [facility] Flucelvax - single dose syringe Flucelvax - single dose syringe Unknown Completed [facility] Boostrix (Tdap) Boostrix (Tdap) Unknown Completed [facility] Afluria Afluria Unknown Completed [facility] Flucelvax - single dose syringe Flucelvax - single dose syringe Unknown Completed [facility] Boostrix (Tdap) Boostrix (Tdap) Unknown Completed [facility] Afluria Afluria Unknown Completed [facility] Flucelvax - single dose syringe Flucelvax - single dose syringe Unknown Completed [facility] Boostrix (Tdap) Boostrix (Tdap) Unknown Completed [facility] Afluria Afluria Unknown Completed [facility] Flucelvax - single dose syringe Flucelvax - single dose syringe Unknown Completed [facility] Boostrix (Tdap) Boostrix (Tdap) Unknown Completed [facility] Afluria Afluria Unknown Completed [facility] Flucelvax - single dose syringe Flucelvax - single dose syringe Unknown Completed [facility] Boostrix (Tdap) Boostrix (Tdap) Unknown Completed [facility] Afluria Afluria Unknown Completed [facility] Flucelvax - single dose syringe Flucelvax - single dose syringe Unknown Completed [facility] Boostrix (Tdap) Boostrix (Tdap) Unknown Completed [facility] Afluria Afluria Unknown Completed [facility] Flucelvax - single dose syringe Flucelvax - single dose syringe Unknown Completed [facility] Boostrix (Tdap) Boostrix (Tdap) Unknown Completed [facility] Afluria Afluria Unknown Completed [facility] Flucelvax - single dose syringe Flucelvax - single dose syringe Unknown Completed [facility] Boostrix (Tdap) Boostrix (Tdap) Unknown Completed [facility] Afluria Afluria Unknown Completed [facility] Flucelvax - single dose syringe Flucelvax - single dose syringe Unknown Completed [facility] Boostrix (Tdap) Boostrix (Tdap) Unknown Completed [facility] Afluria Afluria Unknown Completed [facility] Flucelvax - single dose syringe Flucelvax - single dose syringe Unknown Completed [facility] Boostrix (Tdap) Boostrix (Tdap) Unknown Completed [facility] Afluria Afluria Unknown Completed [facility] Flucelvax - single dose syringe Flucelvax - single dose syringe Unknown Completed [facility] Boostrix (Tdap) Boostrix (Tdap) Unknown Completed [facility] Afluria Afluria Unknown Completed [facility] Flucelvax - single dose syringe Flucelvax - single dose syringe Unknown Completed [facility] Boostrix (Tdap) Boostrix (Tdap) Unknown Completed [facility] Afluria Afluria Unknown Completed [facility] Flucelvax - single dose syringe Flucelvax - single dose syringe Unknown Completed [facility] Boostrix (Tdap) Boostrix (Tdap) Unknown Completed [facility] Afluria Afluria Unknown Completed [facility] Flucelvax (ccIIV4) - SDS - 0.5mL Flucelvax (ccIIV4) - SDS - 0.5mL Unknown Completed [facility] Boostrix (Tdap) Boostrix (Tdap) Unknown Completed [facility] Afluria Afluria Unknown Completed [facility] Flucelvax (ccIIV4) - SDS - 0.5mL Flucelvax (ccIIV4) - SDS - 0.5mL Unknown Completed [facility] Boostrix (Tdap) Boostrix (Tdap) Unknown Completed [facility] Afluria Afluria Unknown Completed [facility] Flucelvax (ccIIV4) - SDS - 0.5mL Flucelvax (ccIIV4) - SDS - 0.5mL Unknown Completed [facility] Boostrix (Tdap) Boostrix (Tdap) Unknown Completed [facility] Afluria Afluria Unknown Completed [facility] Flucelvax (ccIIV4) - SDS - 0.5mL Flucelvax (ccIIV4) - SDS - 0.5mL Unknown Completed [facility] Boostrix (Tdap) Boostrix (Tdap) Unknown Completed [facility] Afluria Afluria Unknown Completed [facility] Flucelvax (ccIIV4) - SDS - 0.5mL Flucelvax (ccIIV4) - SDS - 0.5mL Unknown Completed [facility] Boostrix (Tdap) Boostrix (Tdap) Unknown Completed [facility] Afluria Afluria Unknown Completed [facility] Flucelvax (ccIIV4) - SDS - 0.5mL Flucelvax (ccIIV4) - SDS - 0.5mL Unknown Completed [facility] Boostrix (Tdap) Boostrix (Tdap) Unknown Completed [facility] Flu Trivalent Unknown Completed [facility] TDAP Unknown Completed [facility] Influenza Virus Vaccine Quad IM, Preserv and ABX Free 6 MO-64 YRS (FLUCELVAX) Unknown Completed [facility] Flu Trivalent Unknown [facility] Influenza Virus Vaccine Quad IM, Preserv and ABX Free 6 MO-64 YRS (FLUCELVAX) Unknown Completed [facility] Flu Trivalent Unknown [facility] Completed [facility] Influenza Virus Vaccine Quad IM, Preserv and ABX Free 6 MO-64 YRS (FLUCELVAX) Unknown Completed [facility] Flu Trivalent Unknown Completed [facility] TDAP Unknown Completed [facility] Influenza Virus Vaccine Quad IM, Preserv and ABX Free 6 MO-64 YRS (FLUCELVAX) Unknown Completed [facility] Flu Trivalent Unknown Completed [facility] TDAP Unknown Completed [facility] Influenza Virus Vaccine Quad IM, Preserv and ABX Free 6 MO-64 YRS (FLUCELVAX) Unknown Completed [facility] Flu Trivalent Unknown Completed [facility] TDAP Unknown Completed [facility] Influenza Virus Vaccine Quad IM, Preserv and ABX Free 6 MO-64 YRS (FLUCELVAX) Unknown Completed [facility] Flu Trivalent Unknown Completed [facility] TDAP Unknown Completed [facility] Influenza Virus Vaccine Quad IM, Preserv and ABX Free 6 MO-64 YRS (FLUCELVAX) Unknown Completed [facility] Flu Trivalent Unknown Completed [facility] TDAP Unknown Completed [facility] Influenza Virus Vaccine Quad IM, Preserv and ABX Free 6 MO-64 YRS (FLUCELVAX) Unknown Completed [facility] Flu Trivalent Unknown Completed [facility] TDAP Unknown Completed [facility] Influenza Virus Vaccine Quad IM, Preserv and ABX Free 6 MO-64 YRS (FLUCELVAX) Unknown Completed [facility] Flu Trivalent Unknown Completed [facility] TDAP Unknown Completed [facility] Influenza Virus Vaccine Quad IM, Preserv and ABX Free 6 MO-64 YRS (FLUCELVAX) Unknown Completed [facility] Flu Trivalent Unknown Completed Univer [facility] TDAP Unknown Completed [facility] Influenza Virus Vaccine Quad IM, Preserv and ABX Free 6 MO-64 YRS (FLUCELVAX) Unknown Completed [facility] Flu Trivalent Unknown Completed [facility] TDAP Unknown Completed [facility] Influenza Virus Vaccine Quad IM, Preserv and ABX Free 6 MO-64 YRS (FLUCELVAX) Unknown Completed [facility] Flu Trivalent Unknown Completed [facility] TDAP Unknown Completed [facility] Influenza Virus Vaccine Quad IM, Preserv and ABX Free 6 MO-64 YRS (FLUCELVAX) Unknown Completed [facility] Flu Trivalent Unknown Completed [facility] TDAP Unknown Completed [facility] Influenza Virus Vaccine Quad IM, Preserv and ABX Free 6 MO-64 YRS (FLUCELVAX) Unknown Completed [facility] Vital Signs Vital Name Observation Time Observation Value Comments S ource Systolic blood pressure 2023-12-17 18:39:00 127 mm[Hg] [facility] Diastolic blood pressure 2023-12-17 18:39:00 76 mm[Hg] [facility] Heart rate 2023-12-17 18:39:00 86 /min [facility] Body temperature 2023-12-17 18:26:00 36.78 Marlen [facility] Respiratory rate 2023-12-17 18:26:00 18 /min [facility] Body height 2023-12-17 18:26:00 162.6 cm [facility] Body weight 2023-12-17 18:26:00 80.769 kg [facility] BMI 2023-12-17 18:26:00 30.56 kg/m2 [facility] height 2023-10-16 14:30:00 65 [in_i] Commo n [facility] weight 2023-10-16 14:30:00 172.6 [lb_av] Co mmon [facility] temperature 2023-10-16 14:30:00 97.9 [degF] Com mon [facility] bmi 2023-10-16 14:30:00 28.72 kg/m2 Comm on [facility] oximetry 2023-10-16 14:30:00 98 % Commo n [facility] blood pressure systolic 2023-10-16 14:30:00 130 mm[Hg] Common [facility] blood pressure diastolic 2023-10-16 14:30:00 70 mm[Hg] [facility] Systolic blood pressure 2023-07-31 14:12:00 121 mm[Hg] [facility] Diastolic blood pressure 2023-07-31 14:12:00 77 mm[Hg] [facility] Heart rate 2023-07-31 14:12:00 81 /min [facility] Body temperature 2023-07-31 14:12:00 36.56 Marlen [facility] Respiratory rate 2023-07-31 14:12:00 18 /min [facility] Body height 2023-07-31 14:12:00 162.6 cm [facility] Body weight 2023-07-31 14:12:00 78.382 kg [facility] BMI 2023-07-31 14:12:00 29.66 kg/m2 [facility] height 2023-07-18 09:20:00 65 [in_i] Commo n [facility] weight 2023-07-18 09:20:00 169 [lb_av] Comm on [facility] temperature 2023-07-18 09:20:00 98.1 [degF] Com mon [facility] bmi 2023-07-18 09:20:00 28.12 kg/m2 Comm on [facility] blood pressure systolic 2023-07-18 09:20:00 127 mm[Hg] Common [facility] blood pressure diastolic 2023-07-18 09:20:00 78 mm[Hg] [facility] Systolic blood pressure 2023-07-18 03:07:44 128 mm[Hg] [facility] Diastolic blood pressure 2023-07-18 03:07:44 72 mm[Hg] [facility] Heart rate 2023-07-18 03:07:44 77 /min [facility] Body temperature 2023-07-18 03:07:44 36.78 Marlen [facility] Respiratory rate 2023-07-18 03:07:44 18 /min [facility] Oxygen saturation in Arterial blood by Pulse oximetry 2023-07-18 03:07:44 100 /min [facility] Body height 2023-07-18 01:20:00 162.6 cm [facility] Body weight 2023-07-18 01:20:00 76.658 kg [facility] BMI 2023-07-18 01:20:00 29.01 kg/m2 [facility] Systolic blood pressure 2023-07-17 15:17:00 129 mm[Hg] [facility] Diastolic blood pressure 2023-07-17 15:17:00 79 mm[Hg] [facility] Heart rate 2023-07-17 15:17:00 86 /min [facility] Body temperature 2023-07-17 15:17:00 36.72 Marlen [facility] Respiratory rate 2023-07-17 15:17:00 18 /min [facility] Body height 2023-07-17 15:17:00 165.1 cm [facility] Body weight 2023-07-17 15:17:00 76.715 kg [facility] BMI 2023-07-17 15:17:00 28.14 kg/m2 [facility] height 2023-04-15 11:20:00 65 [in_i] Commo n [facility] weight 2023-04-15 11:20:00 166.0 [lb_av] Co mmon [facility] temperature 2023-04-15 11:20:00 97.7 [degF] Com mon [facility] bmi 2023-04-15 11:20:00 27.62 kg/m2 Comm on [facility] oximetry 2023-04-15 11:20:00 97 % Commo n [facility] respiratory rate 2023-04-15 11:20:00 16 /min Common [facility] blood pressure systolic 2023-04-15 11:20:00 123 mm[Hg] Common [facility] blood pressure diastolic 2023-04-15 11:20:00 69 mm[Hg] [facility] height 2023-02-05 11:30:00 65 [in_i] Commo n [facility] weight 2023-02-05 11:30:00 173 [lb_av] Comm on [facility] bmi 2023-02-05 11:30:00 28.79 kg/m2 Comm on [facility] blood pressure systolic 2023-02-05 11:30:00 120 mm[Hg] Common [facility] blood pressure diastolic 2023-02-05 11:30:00 72 mm[Hg] Common [facility] height 2023-01-24 08:00:00 65 [in_i] Commo n [facility] weight 2023-01-24 08:00:00 171.4 [lb_av] Co mmon [facility] temperature 2023-01-24 08:00:00 97.9 [degF] Com mon [facility] bmi 2023-01-24 08:00:00 28.52 kg/m2 Comm on [facility] oximetry 2023-01-24 08:00:00 99 % Commo n [facility] respiratory rate 2023-01-24 08:00:00 16 /min Common [facility] blood pressure systolic 2023-01-24 08:00:00 116 mm[Hg] Common [facility] blood pressure diastolic 2023-01-24 08:00:00 78 mm[Hg] [facility] height 2023-01-18 16:00:00 65 [in_i] Commo n [facility] weight 2023-01-18 16:00:00 177 [lb_av] Comm on [facility] bmi 2023-01-18 16:00:00 29.45 kg/m2 Comm on [facility] height 2022-11-08 11:50:00 65 [in_i] Commo n [facility] weight 2022-11-08 11:50:00 177 [lb_av] Comm on [facility] temperature 2022-11-08 11:50:00 97.9 [degF] Com mon [facility] bmi 2022-11-08 11:50:00 29.45 kg/m2 Comm on [facility] blood pressure systolic 2022-11-08 11:50:00 116 mm[Hg] Common [facility] blood pressure diastolic 2022-11-08 11:50:00 79 mm[Hg] Common [facility] height 2022-08-09 08:00:00 65 [in_i] Commo n [facility] weight 2022-08-09 08:00:00 181 [lb_av] Comm on [facility] temperature 2022-08-09 08:00:00 98.2 [degF] Com [facility] bmi 2022-08-09 08:00:00 30.12 kg/m2 Comm on [facility] blood pressure systolic 2022-08-09 08:00:00 118 mm[Hg] [facility] blood pressure diastolic 2022-08-09 08:00:00 75 mm[Hg] Common [facility] weight 2022-07-25 15:40:00 183.0 [lb_av] Co mmon [facility] temperature 2022-07-25 15:40:00 97.9 [degF] Com mon [facility] bmi 2022-07-25 15:40:00 30.45 kg/m2 Comm on [facility] oximetry 2022-07-25 15:40:00 99 % Commo n [facility] respiratory rate 2022-07-25 15:40:00 17 /min Common [facility] blood pressure systolic 2022-07-25 15:40:00 121 mm[Hg] [facility] blood pressure diastolic 2022-07-25 15:40:00 75 mm[Hg] [facility] height 2022-07-25 15:40:00 65 [in_i] Commo n [facility] height 2022-05-18 07:50:00 65 [in_i] Commo n [facility] weight 2022-05-18 07:50:00 195 [lb_av] Comm on [facility] temperature 2022-05-18 07:50:00 98.2 [degF] Com [facility] bmi 2022-05-18 07:50:00 32.45 kg/m2 Comm on [facility] blood pressure systolic 2022-05-18 07:50:00 122 mm[Hg] [facility] blood pressure diastolic 2022-05-18 07:50:00 84 mm[Hg] Common [facility] blood pressure diastolic 2022-05-04 13:20:00 64 mm[Hg] Common [facility] height 2022-05-04 13:20:00 65 [in_i] Commo n [facility] weight 2022-05-04 13:20:00 195 [lb_av] Comm on [facility] temperature 2022-05-04 13:20:00 97.8 [degF] Com [facility] bmi 2022-05-04 13:20:00 32.45 kg/m2 Comm on [facility] oximetry 2022-05-04 13:20:00 99 % Commo n [facility] respiratory rate 2022-05-04 13:20:00 17 /min [facility] blood pressure systolic 2022-05-04 13:20:00 127 mm[Hg] [facility] Body temperature 2020-01-31 19:47:00 36.67 Marlen [facility] Respiratory rate 2020-01-31 19:47:00 18 /min [facility] Body height 2020-01-31 19:47:00 165.1 cm [facility] Body weight 2020-01-31 19:47:00 90.719 kg [facility] BMI 2020-01-31 19:47:00 33.28 kg/m2 [facility] Oxygen saturation in Arterial blood by Pulse oximetry 2020-01-31 19:47:00 97 /min [facility] Systolic blood pressure 2020-01-31 19:47:00 130 mm[Hg] [facility] Diastolic blood pressure 2020-01-31 19:47:00 88 mm[Hg] [facility] Heart rate 2020-01-31 19:47:00 84 /min [facility] Systolic blood pressure 2019-05-08 18:13:00 118 mm[Hg] [facility] Diastolic blood pressure 2019-05-08 18:13:00 71 mm[Hg] [facility] Heart rate 2019-05-08 18:13:00 71 /min [facility] Body temperature 2019-05-08 18:13:00 36.89 Marlen [facility] Respiratory rate 2019-05-08 18:13:00 16 /min [facility] Body height 2019-05-08 18:13:00 165.1 cm [facility] Body weight 2019-05-08 18:13:00 82.725 kg [facility] BMI 2019-05-08 18:13:00 30.35 kg/m2 [facility] Systolic blood pressure 2019-05-08 18:13:00 118 mm[facility]Hg] [facility] [facility] Diastolic blood pressure 2019-05-08 18:13:00 71 mm[Hg] [facility] Heart rate 2019-05-08 18:13:00 71 /min [facility] Body temperature 2019-05-08 18:13:00 36.89 Marlen [facility] Respiratory rate 2019-05-08 18:13:00 16 /min [facility] Body height 2019-05-08 18:13:00 165.1 cm [facility] Body weight 2019-05-08 18:13:00 82.725 kg [facility] BMI 2019-05-08 18:13:00 30.35 kg/m2 [facility] Systolic blood pressure 2019-04-10 19:59:00 109 mm[Hg] [facility] Diastolic blood pressure 2019-04-10 19:59:00 75 mm[Hg] [facility] Heart rate 2019-04-10 19:59:00 98 /min [facility] Body temperature 2019-04-10 19:59:00 37 Marlen [facility] Respiratory rate 2019-04-10 19:59:00 16 /min [facility] Body height 2019-04-10 19:59:00 165.1 cm [facility] Body weight 2019-04-10 19:59:00 82.158 kg [facility] BMI 2019-04-10 19:59:00 30.14 kg/m2 [facility] Procedures Procedure Date / Time Performed Performing Clinician Source POCT TEST 2023-12-17 18:35:00 Bettie Fraser [facility] POCT URINALYSIS W/O SPECIFIC GRAVITY 2023-12-17 18:35:00 Judi Fraser [facility] TOTAL BETA HCG ASSAY 2023-07-31 14:45:00 Yana Fraser [facility] POCT URINALYSIS 2023-07-31 14:13:00 Judi Fraser [facility] EXTERNAL PROVIDER RECORDS 2023-07-24 06:01:00 Doctor Unassigned, [place] [facility] CONSENT/REFUSAL FOR DIAGNOSIS AND TREATMENT 2023-07-18 02:20:15 Doctor Unassigned, [place] [facility] ASSIGNMENT OF BENEFITS 2023-07-18 01:35:46 Docto r Unassigned, [place] [facility] TOTAL BETA HCG ASSAY 2023-07-18 01:27:00 Phi Dixon [facility] NOTICE OF PRIVACY PRACTICES 2023-07-18 01:13:57 Doctor Unassigned, [place] [facility] POCT TEST 2023-07-17 15:10:00 Bettie Fraser [facility] POCT URINALYSIS W/O SPECIFIC GRAVITY 2023-07-17 15:10:00 Judi Fraser [facility] AUTHORIZATION TO RELEASE PHI TO [facility] 2023-07-17 06:01:00 Doctor Unassigned, [place] [facility] US ABDOMEN LIMITED 2022-06-29 20:38:28 Jose Alberto Andrade [facility] CONSENT/REFUSAL FOR DIAGNOSIS AND TREATMENT 2022-06-29 19:57:48 Doctor Unassigned, [place] [facility] ASSIGNMENT OF BENEFITS 2022-06-29 19:57:27 Docnimisha kwok Unassigned, [place] [facility] [id number] 2019-12-12 00:00:00 [facility] [id number] 2019-12-09 00:00:00 [facility] POCT URINALYSIS 2019-05-08 18:17:00 Yamileth Barone [facility] POCT TEST 2019-04-10 21:37:00 Chuy Barone [facility] POCT URINALYSIS W/O SPECIFIC GRAVITY 2019-04-10 21:37:00 Yamileth Barone [facility] ASSIGNMENT OF BENEFITS 2019-04-10 19:31:31 Docnimisha r Unassigned, [place] [facility] Encounters Start Date/Time End Date/Time Encounter Type Admission Type Attending Clinicians Care Facility Care Department Encounter ID Source 2023-10-30 08:06[facility] [id number] 2023-10-09 14:22:00 [facility] [id number] [facility] 2023-07-04 11:26:00 Outpatient Durbin, Laine STLMLC STLMLC [id number] [facility] 2023-02-05 11:40:00 Outpatient Durbin, Laine STLMLC STLMLC [id number] [facility] [place] [facility] 2023-01-24 15:04:00 Outpatient Durbin, Laine STLMLC STLMLC [id number] [facility] 2022-11-06 09:44:00 Outpatient Durbin, Laine STLMLC STLMLC [id number] [facility] [place] [facility] 2022-08-10 15:23:00 Outpatient Durbin, Laine STLMLC STLMLC [id number] [facility] 2022-08-07 09:59:01 Outpatient Durbin, Laine STLMLC STLMLC [id number] [facility] 2022-06-08 07:16:00 Outpatient Durbin, Laine STLMLC STLMLC [id number] [facility] 2022-05-03 14:21:00 Outpatient Durbin, Laine STLMLC STLMLC [id number] [facility] 2021-09-13 12:27:34 Outpatient Durbin, Laine STLMLC STLMLC [id number] [facility] 2021-09-13 11:50:42 Outpatient Durbin, Laine STLMLC STLMLC [id number] [facility] 2019-12-09 07:21:00 Inpatient Fermin Warren [facility] KEV [id number] [facility] 2019-12-07 08:40:00 Inpatient Fermin Elmore [facility] LD [id number] [facility] 2023-12-31 11:00:00 2023-12-31 11:00:00 Outpatient JUDI JIMENEZMB [facility] [id number] [facility] 2023-12-17 13:30:00 2023-12-17 14:46:57 Outpatient Melody JUDI FRASER [facility] [id number] [facility] 2023-12-17 13:30:00 2023-12-17 14:46:57 Initial Visit Judi Fraser [facility] DENTURE LABORATORY TECHNICIAN [facility] 1.2.840.114 350.1.13.10 4.2.7.2.686 [id number] [facility] 2023-12-03 00:00:00 2023-12-03 00:00:00 (TEL) STLMLC STLMLC [id number] [facility] 2023-11-05 00:00:00 2023-11-05 00:00:00 (TEL) STLMLC STLMLC [id number] [facility] 2023-10-16 00:00:00 2023-10-16 00:00:00 OFFICE VISIT ESTAB PT LEVEL 3 STLMLC STLMLC [id number] [facility] 2023-10-09 00:00:00 2023-10-09 00:00:00 (TEL) STLMLC STLMLC [id number] [facility] 2023-08-15 09:30:00 2023-08-15 09:30:00 Outpatient JUDI JIMENEZ [facility] [id number] [facility] 2023-08-01 00:00:00 2023-08-01 00:00:00 Telephone Judi Fraser [facility] DENTURE LABORATORY TECHNICIAN [facility] .2.840.114 350.1.13.10 4.2.7.2.686 [id number] [facility] 2023-07-31 07:45:00 2023-07-31 08:46:59 Outpatient JUDI JIMENEZ [facility] [id number] [facility] 2023-07-31 07:45:00 2023-07-31 08:46:59 Routine Visit Judi Fraser [facility] DENTURE LABORATORY TECHNICIAN [facility] 1.2840.114 350.1.13.10 4.2.7.2.686 [id number] [facility] 2023-07-26 00:00:00 2023-07-26 00:00:00 Telephone MarlenyJudi bejarano [facility] DENTURE LABORATORY TECHNICIAN [facility] CHILD [facility] 1.0.114 350.1.13.10 4.2.7.2.686 [id number] [facility] 2023-07-26 00:00:00 2023-07-26 00:00:00 Patient Secure Msg Bettie Frasernda Pennie [facility] DENTURE LABORATORY TECHNICIAN [facility] 1..114 350.1.13.10 4.2.7.2.686 [id number] [facility] 2023-07-25 10:30:00 2023-07-25 10:59:40 Outpatient R YAMILETH BARONE [facility] [id number] [facility] 2023-07-25 10:30:00 2023-07-25 10:59:40 Social Worker School Visit Lab, [facility] Yamileth Barone [facility] 1.84.114 350.1.13.10 4.2.7.2.686 [id number] [facility] 2023-07-24 00:00:00 2023-07-24 00:00:00 Orders Only Doctor Unassigned, [place] [facility] 1..114 350.1.13.10 4.2.7.2.686 [id number] [facility] 2023-07-22 00:00:00 2023-07-22 00:00:00 Case Management Judi Fraser [facility] DENTURE LABORATORY TECHNICIAN [facility] 1.2.840.114 350.1.13.10 4.2.7.2.686 [id number] [facility] 2023-07-22 00:00:00 2023-07-22 00:00:00 Telephone Judi Fraser [facility] DENTURE LABORATORY TECHNICIAN [facility] 1.2.840.114 350.1.13.10 4.2.7.2.686 [id number] [facility] 2023-07-20 00:00:00 2023-07-20 00:00:00 Patient Secure Msg Judi Fraser [facility] DENTURE LABORATORY TECHNICIAN [facility] 1.2.840.114 350.1.13.10 4.2.7.2.686 [id number] [facility] 2023-07-19 08:00:00 2023-07-19 08:00:00 Social Worker School Visit Lab, [facility] Judi Fraser [facility] DENTURE LABORATORY TECHNICIAN [facility] 1.2.840.114 350.1.13.10 4.2.7.2.686 [id number] [facility] 2023-07-19 08:00:00 2023-07-19 07:55:21 Outpatient R MARLENYYANIRA JUDI [facility] [id number] [facility] 2023-07-18 00:00:00 2023-07-18 00:00:00 OFFICE VISIT ESTAB PT LEVEL 3 STLMLC STLC [id number] [facility] 2023-07-17 19:23:00 2023-07-17 21:12:00 Emergency X KENDRA DIXON [facility] ERT [id number] [facility] 2023-07-17 19:23:00 2023-07-17 21:12:00 Emergency Kendra Dixon [facility] 1.2.840.114 350.1.13.10 4.2.7.2.686 [id number] [facility] 2023-07-17 09:00:00 2023-07-17 10:20:31 Initial Visit Judi Fraser [facility] DENTURE LABORATORY TECHNICIAN [facility] 1.2.840.114 350.1.13.10 4.2.7.2.686 [id number] [facility] 2023-07-17 08:30:00 2023-07-17 10:04:28 Outpatient R JUDI FRASER [facility] [id number] [facility] 2023-07-17 00:00:00 2023-07-17 00:00:00 Orders Only Doctor Unassigned, [place] [facility] 1.2.840.114 350.1.13.10 4.2.7.2.686 [id number] [facility] 2023-07-16 00:00:00 2023-07-16 00:00:00 Telephone Judi Fraser [facility] DENTURE LABORATORY TECHNICIAN [facility] 1.2.840.114 350.1.13.10 4.2.7.2.686 [id number] [facility] 2023-04-15 00:00:00 2023-04-15 00:00:00 PREV VISIT EST AGE 18-39 STLMLC STLMLC [id number] [facility] 2023-02-05 00:00:00 2023-02-05 00:00:00 OFFICE VISIT ESTAB PT LEVEL 4 STLMLC STLMLC [id number] [facility] 2023-01-24 00:00:00 2023-01-24 00:00:00 OFFICE VISIT ESTAB PT LEVEL 3 STLMLC STLMLC [id number] [facility] 2023-01-23 00:00:00 2023-01-23 00:00:00 (TEL) STLMLC STLMLC [id number] [facility] 2023-01-21 00:00:00 2023-01-21 00:00:00 (TEL) STLMLC STLMLC [id number] [facility] 2023-01-18 00:00:00 2023-01-18 00:00:00 OFFICE VISIT ESTAB PT LEVEL 3 STLMLC STLMLC [id number] [facility] 2023-01-18 00:00:00 2023-01-18 00:00:00 (TEL) STLMLC STLMLC [id number] [facility] 2023-01-01 00:00:00 2023-01-01 00:00:00 (TEL) STLMLC STLMLC [id number] [facility] 2022-12-05 00:00:00 2022-12-05 00:00:00 (TEL) STLMLC STLMLC [id number] [facility] 2022-12-05 00:00:00 2022-12-05 00:00:00 (TEL) STLMLC STLMLC [id number] [facility] 2022-12-03 00:00:00 2022-12-03 00:00:00 (TEL) STLMLC STLMLC [id number] [facility] 2022-11-09 00:00:00 2022-11-09 00:00:00 (TEL) STLMLC STLMLC [id number] [facility] 2022-11-08 00:00:00 2022-11-08 00:00:00 OFFICE VISIT ESTAB PT LEVEL 4 STLMLC STLMLC [id number] [facility] 2022-11-08 00:00:00 2022-11-08 00:00:00 (TEL) STLMLC STLMLC [id number] [facility] 2022-08-09 00:00:00 2022-08-09 00:00:00 OFFICE VISIT ESTAB PT LEVEL 4 STLMLC STLMLC [id number] [facility] 2022-07-25 00:00:00 2022-07-25 00:00:00 OFFICE VISIT ESTAB PT LEVEL 4 STLMLC STLMLC [id number] [facility] 2022-07-24 00:00:00 2022-07-24 00:00:00 (TEL) STLMLC STLMLC [id number] [facility] 2022-06-29 13:58:43 2022-06-29 23:59:00 Outpatient R RADIOLOGY [facility] [id number] [facility] 2022-06-29 13:58:43 2022-06-29 23:59:00 Hospital Encounter Radiology [facility] 1.2.840.114 350.1.13.10 4.2.7.2.686 [id number] [facility] 2022-05-22 00:00:00 2022-05-22 00:00:00 (TEL) STLMLC STLMLC [id number] [facility] 2022-05-18 00:00:00 2022-05-18 00:00:00 OFFICE VISIT ESTAB PT LEVEL 4 STLMLC STLMLC [id number] [facility] 2022-05-09 00:00:00 2022-05-09 00:00:00 (TEL) STLMLC STLMLC [id number] [facility] 2022-05-04 00:00:00 2022-05-04 00:00:00 (WELLNESS) Wellness Visit STLMLC STLMLC [id number] [facility] 2022-02-27 00:00:00 2022-02-27 00:00:00 (TEL) STLMLC STLMLC [id number] [facility] 2021-04-18 18:40:00 2021-04-18 18:40:00 Outpatient R CHANELL ANN [facility] [id number] [facility] 2020-04-21 13:30:00 2020-04-21 13:30:00 Outpatient [facility]razmaryse cabrera [facility] [id number] 2020-02-16 00:00:00 2020-02-16 00:00:00 Telephone Nurse, Melvin Urgent [facility] 1.2.840.114 350.1.13.10 4.2.7.2.686 [id number] [facility] 2020-02-14 17:56:57 2020-02-14 18:11:57 Laboratory Only Only, Melvin Test Tanmay Velasco [facility] 1.20.114 350.1.13.10 4.2.7.2.686 [id number] [facility] 2020-02-14 18:00:00 2020-02-14 18:00:00 Outpatient TANMAY VALENCIA [facility] [id number] [facility] 2020-02-02 00:00:00 2020-02-02 00:00:00 Telephone Lab, Adc Fam Pob I [facility] 1.84.114 350.1.13.10 4.2.7.2.686 [id number] [facility] 2020-01-31 16:20:00 2020-01-31 16:20:00 Outpatient R [facility] [id number] [facility] 2020-01-31 14:24:05 2020-01-31 15:15:41 Urgent Care Pob1, Acute Care Clinic Murtaza [facility] 1.84.114 350.1.13.10 4.2.7.2.686 [id number] [facility] 2020-01-27 08:14:00 2020-01-27 08:14:00 Outpatient Brazmaryse cabrera [facility] [id number] [facility] 2019-05-15 14:27:00 2019-05-15 14:27:00 Outpatient Kalebospor rick [facility] Halimat [facility] [id number] [facility] 2019-05-08 12:54:50 2019-05-08 13:35:20 Routine Visit Yamileth Barone [facility] DENTURE LABORATORY TECHNICIAN [facility] 1.2.840.114 350.1.13.10 4.2.7.2.686 [id number] 2019-05-08 12:54:50 2019-05-08 13:35:20 Routine Visit Yamileth Barone [facility] DENTURE LABORATORY TECHNICIAN [facility] 1.2.840.114 350.1.13.10 4.2.7.2.686 [id number] [facility] 2019-05-01 08:09:44 2019-05-01 08:26:42 Social Worker School Visit Lab, Alex [facility] DENTURE LABORATORY TECHNICIAN [facility] 1.2.840.114 350.1.13.10 4.2.7.2.686 [id number] 2019-05-01 08:09:44 2019-05-01 08:26:42 Social Worker School Visit Lab, Yamileth Somers [facility] DENTURE LABORATORY TECHNICIAN [facility] 1.2.840.114 350.1.13.10 4.2.7.2.686 [id number] [facility] 2019-04-23 00:00:00 2019-04-23 00:00:00 Telephone Yamileth Barone [facility] DENTURE LABORATORY TECHNICIAN [facility] 1.2.840.114 350.1.13.10 4.2.7.2.686 [id number] [facility] 2019-04-17 13:37:48 2019-04-17 13:51:45 Social Worker School Visit Lab, Yamileth Somers [facility] DENTURE LABORATORY TECHNICIAN [facility] 1.2.840.114 350.1.13.10 4.2.7.2.686 [id number] [facility] 2019-04-10 14:37:10 2019-04-10 15:56:11 Initial Visit Yamileth Barone [facility] DENTURE LABORATORY TECHNICIAN [facility] CHILD [facility] 1.2.840.114 350.1.13.10 4.2.7.2.686 [id number] [facility] 2019-04-10 00:00:00 2019-04-10 00:00:00 Orders Only Doctor Unassigned, [place] [facility] 1.840.114 350.1.13.10 4.2.7.2.686 [id number] [facility] 2018-12-18 13:30:00 2018-12-18 13:30:00 Outpatient [facility] [id number] [facility] 2018-10-06 12:35:00 2018-10-06 12:35:00 Outpatient [facility] [id number] [facility] 2018-08-07 10:15:00 2018-08-07 10:15:00 Outpatient [facility] [id number] [facility] Results Test Description Test Time Test Comments Results Result Co mments Source [facility] [id number] 18:35:00* Test Item Value Reference Range Interpretation Comme nts POCT PREG (test code = 1605) Positive On board controls acceptable with C Line (test code = 3574) Yes POCT PREG LOT # (test code = 3575) POCT PREG TEST DATE ( test code = 3576) [facility]CG [id number] 08:42:18* Test Item Value Reference Range Interpretation Comme nts BETA HCG (test code = 0456394986) 40.77 See_Comment [Automated messa ge] The system which generated this result transmitted reference range: Non- female and male patients: <5 mIU/mL. The reference range was not used to interpret this result as normal/abnormal. STACY (test code = STACY) Gestational Age ?Range (mIU/mL) 1-10 ?Weeks ?[id number] Weeks ?51279-63269342-56 Weeks ?4463-12666268-85 Weeks ?1531-262619 Biotin has been reported to cause a negative bias, interpret results relative to patient's use of biotin. [facility] URINALYSIS W SPECIFIC [id number] 14:13:00* Test Item Value Reference Range Interpretation Comme nts POCT U SP GRAV (test code = 3255) . 1.005-1.025 POCT PH U (test code = 3254) 6 mg/dl 5-8 POCT U LEUK EST (test code = 3263) trace Negative - Negative POCT U NIT (test code = 3262) neg Negative - Negati ve POCT U PROT (test code = 3259) trace Negative - Negat yu POCT U GLU (test code = 3256) neg Negative - Negati ve POCT U KETONE (test code = 3258) neg Negative - Neg ative POCT U UROBILI (test code = 3260) . 0.2-1 POCT U BILI (test code = 3261) . Negative - Negat yu POCT U BLD (test code = 3257) 250 Negative - Negati ve POCT U COLOR (test code = 3266) . POCT U APPEAR (test code = 3267) . [facility] BETA HCG [id number] 02:30:50* Test Item Value Reference Range Interpretation Comme nts BETA HCG (test code = 3402685286) 98.07 See_Comment [Automated messa ge] The system which generated this result transmitted reference range: Non- female and male patients: <5 mIU/mL. The reference range was not used to interpret this result as normal/abnormal. STACY (test code = STACY) Gestational Age ?Range (mIU/mL) 1-10 ?Weeks ?39-78694101-71 Weeks ?25741-10296463-80 Weeks ?7030-13565165-28 Weeks ?0562-635751 Biotin has been reported to cause a negative bias, interpret results relative to patient's use of biotin. [facility] [id number] 15:10:00* Test Item Value Reference Range Interpretation Comme nts POCT PREG (test code = 1605) Positive On board controls acceptable with C Line (test code = 3574) Yes POCT PREG LOT # (test code = 3575) POCT PREG TEST DATE ( test code = 3576) [facility] URINALYSIS W/O SPECIFIC [id number] 15:10:00* Test Item Value Reference Range Interpretation Comme nts POCT PH U (test code = 3254) 7 mg/dl 5-8 POCT U LEUK EST (test code = 3263) Neg Negative - Negative POCT U NIT (test code = 3262) Neg Negative - Negati ve POCT U PROT (test code = 3259) 1+ Negative - Negat yu POCT U GLU (test code = 3256) Nml Negative - Negati ve POCT U KETONE (test code = 3258) None Negative - Neg ative POCT U BLD (test code = 3257) ~250 Negative - Negati ve [facility]AUTO [id number] 00:00:00* Test Item Value Reference Range Interpretation Comme nts NUCLEATED RBCS (test code = 73869-5) 0.0 /100 WBC'S See_Comment [Automated [employer]] The system which generated this result transmitted reference range: 0.0 /100 WBC'S. The reference range was not used to interpret this result as normal/abnormal. ABSOLUTE EOSINOPHILS (test code = 82701-1) 0.04 K/UL See_Comment [Automated [employer]] The system which generated this result transmitted reference range: 0.00-0.50 K/UL. The reference range was not used to interpret this result as normal/abnormal. ABSOLUTE LYMPHOCYTES (test code = 78380-1) 1.65 K/UL See_Comment [Automated messa ge] The system which generated this result transmitted reference range: 1.00-4.00 K/UL. The reference range was not used to interpret this result as normal/abnormal. ABSOLUTE MONOCYTES (test code = 34543-5) 0.28 K/UL See_Comment [Automated messa ge] The system which generated this result transmitted reference range: 0.20-1.00 K/UL. The reference range was not used to interpret this result as normal/abnormal. ABSOLUTE NEUTROPHILS (test code = 76580-5) 2.27 K/UL See_Comment [Automated messa ge] The system which generated this result transmitted reference range: 1.50-7.50 K/UL. The reference range was not used to interpret this result as normal/abnormal. BASOPHILS (test code = 84332-9) 0.9 % EOSINOPHILS (test code = 38368-7) 0.9 % HEMATOCRIT (test code = 32063-4) 35.8 % See_Comment [Automated messa ge] The system which generated this result transmitted reference range: 34.0-45.0 %. The reference range was not used to interpret this result as normal/abnormal. HEMOGLOBIN (test code = 718-7) 11.6 G/DL See_Comment [Automated messa ge] The system which generated this result transmitted reference range: 11.5-15.5 G/DL. The reference range was not used to interpret this result as normal/abnormal. LYMPHOCYTES (test code = 83405-7) 38.1 % MCH (test code = 63014-7) 27.8 PG See_Comment [Automated messa ge] The system which generated this result transmitted reference range: 25.0-33.0 PG. The reference range was not used to interpret this result as normal/abnormal. MCHC (test code = 00611-1) 32.4 G/DL See_Comment [Automated messa ge] The system which generated this result transmitted reference range: 31.0-36.0 G/DL. The reference range was not used to interpret this result as normal/abnormal. MCV (test code = 51257-9) 85.9 fL See_Comment [Automated messa ge] The system which generated this result transmitted reference range: 80.0-99.0 fL. The reference range was not used to interpret this result as normal/abnormal. MONOCYTES (test code = 10504-4) 6.5 % NEUTROPHILS (test code = 99364-4) 52.4 % PLATELET COUNT (test code = 23159-3) 198 K/UL See_Comment [Automated messa ge] The system which generated this result transmitted reference range: 130-400 K/UL. The reference range was not used to interpret this result as normal/abnormal. RBC (test code = 73022-0) 4.17 M/UL See_Comment [Automated messa ge] The system which generated this result transmitted reference range: 3.80-5.40 M/UL. The reference range was not used to interpret this result as normal/abnormal. RDW (test code = 74239-2) 12.6 % See_Comment [Automated messa ge] The system which generated this result transmitted reference range: 11.5-15.0 %. The reference range was not used to interpret this result as normal/abnormal. WBC (test code = 67611-4) 4.3 K/UL See_Comment [Automated messa ge] The system which generated this result transmitted reference range: 3.5-11.0 K/UL. The reference range was not used to interpret this result as normal/abnormal. [id number] 00:00:00* Test Item Value Reference Range Interpretation Comme [facility] FERRITIN (test code = 85024-6) 24 NG/ML See_Comment [Automated messa ge] The system which generated this result transmitted reference range: 13-200 NG/ML. The reference range was not used to interpret this result as normal/abnormal. HEMOGLOBIN [id number] 00:00:00* Test Item Value Reference Range Interpretation Comme [facility] HEMOGLOBIN A1c (test code = 4548-4) 5.2 % See_Comment [Automated messa ge] The system which generated this result transmitted reference range: 4.2-5.6 %. The reference range was not used to interpret this result as normal/abnormal. LIPID PANEL WITH REFLEX DIRECT [id number] 00:00:00* Test Item Value Reference Range Interpretation Comme [facility] CALC LDL CHOL (test code = 15630-8) 90 MG/DL See_Comment [Automated messa ge] The system which generated this result transmitted reference range: <100 MG/DL. The reference range was not used to interpret this result as normal/abnormal. CHOLESTEROL (test code = 2093-3) 163 MG/DL See_Comment [Automated [employer]] The system which generated this result transmitted reference range: <200 MG/DL. The reference range was not used to interpret this result as normal/abnormal. HDL CHOLESTEROL (test code = 2085-9) 52 MG/DL See_Comment [Automated [employer]] The system which generated this result transmitted reference range: >39 MG/DL. The reference range was not used to interpret this result as normal/abnormal. RISK RATIO LDL/HDL (test code = 41986-2) 1.73 RATIO See_Comment [Automated message] The system which generated this result transmitted reference range: <3.22 RATIO. The reference range was not used to interpret this result as normal/abnormal. TRIGLYCERIDES (test code = 2571-8) 109 MG/DL See_Comment [Automated [employer]] The system which generated this result transmitted reference range: <150 MG/DL. The reference range was not used to interpret this result as normal/abnormal. COMPREHENSIVE METABOLIC [id number] 00:00:00* Test Item Value Reference Range Interpretation Comme nts ALBUMIN (test code = 1751-7) 4.8 G/DL See_Comment [Automated [employer]] The system which generated this result transmitted reference range: 3.5-5.2 G/DL. The reference range was not used to interpret this result as normal/abnormal. ALKALINE PHOSPHATASE (test code = 6768-6) 64 U/L See_Comment [Automated message] The system which generated this result transmitted reference range: 40-112 U/L. The reference range was not used to interpret this result as normal/abnormal. BILIRUBIN, TOTAL (test code = 1975-2) 0.3 MG/DL See_Comment [Automated message] The system which generated this result transmitted reference range: <=1.2 MG/DL. The reference range was not used to interpret this result as normal/abnormal. BUN (test code = 3094-0) 25 MG/DL See_Comment H [Automated [employer]] The system which generated this result transmitted reference range: 6-20 MG/DL. The reference range was not used to interpret this result as normal/abnormal. CALCIUM (test code = 07253-1) 9.5 MG/DL See_Comment [Automated messa ge] The system which generated this result transmitted reference range: 8.5-10.5 MG/DL. The reference range was not used to interpret this result as normal/abnormal. CALC A/G RATIO (test code = 1759-0) 2.2 RATIO See_Comment [Automated messa ge] The system which generated this result transmitted reference range: 1.0-2.6 RATIO. The reference range was not used to interpret this result as normal/abnormal. CALC BUN/CREAT (test code = 3097-3) 28 RATIO See_Comment [Automated messa ge] The system which generated this result transmitted reference range: 6-28 RATIO. The reference range was not used to interpret this result as normal/abnormal. CALC GLOBULIN (test code = 58494-7) 2.2 G/DL See_Comment [Automated messa ge] The system which generated this result transmitted reference range: 1.9-3.7 G/DL. The reference range was not used to interpret this result as normal/abnormal. CARBON DIOXIDE (test code = 1963-8) 27 MEQ/L See_Comment [Automated messa ge] The system which generated this result transmitted reference range: 19-31 MEQ/L. The reference range was not used to interpret this result as normal/abnormal. CHLORIDE (test code = 2075-0) 103 MEQ/L See_Comment [Automated messa ge] The system which generated this result transmitted reference range: 95-107 MEQ/L. The reference range was not used to interpret this result as normal/abnormal. CREATININE (test code = 2160-0) 0.90 MG/DL See_Comment [Automated messa ge] The system which generated this result transmitted reference range: 0.60-1.30 MG/DL. The reference range was not used to interpret this result as normal/abnormal. eGFR (2020 CKD-EPI) (test code = 81327-3) 88 ML/MIN/1.73 See_Comment [Automated messa ge] The system which generated this result transmitted reference range: >60 ML/MIN/1.73. The reference range was not used to interpret this result as normal/abnormal. GLUCOSE (test code = 1558-6) 86 MG/DL See_Comment [Automated messa ge] The system which generated this result transmitted reference range: 70-99 MG/DL. The reference range was not used to interpret this result as normal/abnormal. POTASSIUM (test code = 2823-3) 3.9 MEQ/L See_Comment [Automated messa ge] The system which generated this result transmitted reference range: 3.5-5.4 MEQ/L. The reference range was not used to interpret this result as normal/abnormal. PROTEIN, TOTAL (test code = 2885-2) 7.0 G/DL See_Comment [Automated messa ge] The system which generated this result transmitted reference range: 6.1-8.3 G/DL. The reference range was not used to interpret this result as normal/abnormal. AST (test code = 1920-8) 13 U/L See_Comment [Automated messa ge] The system which generated this result transmitted reference range: 9-40 U/L. The reference range was not used to interpret this result as normal/abnormal. ALT (test code = 1742-6) 16 U/L See_Comment [Automated messa ge] The system which generated this result transmitted reference range: 5-40 U/L. The reference range was not used to interpret this result as normal/abnormal. SODIUM (test code = 2951-2) 139 MEQ/L See_Comment [Automated messa ge] The system which generated this result transmitted reference range: 133-146 MEQ/L. The reference range was not used to interpret this result as normal/abnormal. CBC W/AUTO [id number] 00:00:00* Test Item Value Reference Range Interpretation Comme nts NUCLEATED RBCS (test code = 96465-1) 0.0 /100 WBC'S See_Comment [Automated messa ge] The system which generated this result transmitted reference range: 0.0 /100 WBC'S. The reference range was not used to interpret this result as normal/abnormal. ABSOLUTE EOSINOPHILS (test code = 76583-1) 0.12 K/UL See_Comment [Automated messa ge] The system which generated this result transmitted reference range: 0.00-0.50 K/UL. The reference range was not used to interpret this result as normal/abnormal. ABSOLUTE LYMPHOCYTES (test code = 48320-9) 1.97 K/UL See_Comment [Automated messa ge] The system which generated this result transmitted reference range: 1.00-4.00 K/UL. The reference range was not used to interpret this result as normal/abnormal. ABSOLUTE MONOCYTES (test code = 58276-0) 0.62 K/UL See_Comment [Automated messa ge] The system which generated this result transmitted reference range: 0.20-1.00 K/UL. The reference range was not used to interpret this result as normal/abnormal. ABSOLUTE NEUTROPHILS (test code = 63189-7) 4.95 K/UL See_Comment [Automated messa ge] The system which generated this result transmitted reference range: 1.50-7.50 K/UL. The reference range was not used to interpret this result as normal/abnormal. BASOPHILS (test code = 41502-5) 0.5 % EOSINOPHILS (test code = 81599-4) 1.6 % HEMATOCRIT (test code = 72860-0) 33.1 % See_Comment L [Automated messa ge] The system which generated this result transmitted reference range: 34.0-45.0 %. The reference range was not used to interpret this result as normal/abnormal. HEMOGLOBIN (test code = 718-7) 11.2 G/DL See_Comment L [Automated messa ge] The system which generated this result transmitted reference range: 11.5-15.5 G/DL. The reference range was not used to interpret this result as normal/abnormal. LYMPHOCYTES (test code = 09447-3) 25.5 % MCH (test code = 43318-8) 28.9 PG See_Comment [Automated messa ge] The system which generated this result transmitted reference range: 25.0-33.0 PG. The reference range was not used to interpret this result as normal/abnormal. MCHC (test code = 98680-5) 33.8 G/DL See_Comment [Automated messa ge] The system which generated this result transmitted reference range: 31.0-36.0 G/DL. The reference range was not used to interpret this result as normal/abnormal. MCV (test code = 24831-6) 85.3 fL See_Comment [Automated messa ge] The system which generated this result transmitted reference range: 80.0-99.0 fL. The reference range was not used to interpret this result as normal/abnormal. MONOCYTES (test code = 67635-5) 8.0 % NEUTROPHILS (test code = 45911-5) 64.1 % PLATELET COUNT (test code = 90572-1) 230 K/UL See_Comment [Automated messa ge] The system which generated this result transmitted reference range: 130-400 K/UL. The reference range was not used to interpret this result as normal/abnormal. RBC (test code = 17151-0) 3.88 M/UL See_Comment [Automated messa ge] The system which generated this result transmitted reference range: 3.80-5.40 M/UL. The reference range was not used to interpret this result as normal/abnormal. RDW (test code = 45839-5) 12.9 % See_Comment [Automated messa ge] The system which generated this result transmitted reference range: 11.5-15.0 %. The reference range was not used to interpret this result as normal/abnormal. WBC (test code = 44197-7) 7.7 K/UL See_Comment [Automated messa ge] The system which generated this result transmitted reference range: 3.5-11.0 K/UL. The reference range was not used to interpret this result as normal/abnormal. [id number] 00:00:00* Test Item Value Reference Range Interpretation [facility] (test code = 79215-7) 38 NG/ML See_Comment [Automated messa ge] The system which generated this result transmitted reference range: 13-200 NG/ML. The reference range was not used to interpret this result as normal/abnormal. HEMOGLOBIN [id number] 00:00:00* Test Item Value Reference Range Interpretation Comme [facility] HEMOGLOBIN A1c (test code = 4548-4) 5.4 % See_Comment [Automated messa ge] The system which generated this result transmitted reference range: 4.2-5.6 %. The reference range was not used to interpret this result as normal/abnormal. LIPID PANEL WITH REFLEX DIRECT [id number] 00:00:00* Test Item Value Reference Range Interpretation Comme [facility] CALC LDL CHOL (test code = 11517-6) 125 MG/DL See_Comment H [Automated messa ge] The system which generated this result transmitted reference range: <100 MG/DL. The reference range was not used to interpret this result as normal/abnormal. CHOLESTEROL (test code = 2093-3) 200 MG/DL See_Comment H [Automated messa ge] The system which generated this result transmitted reference range: <200 MG/DL. The reference range was not used to interpret this result as normal/abnormal. HDL CHOLESTEROL (test code = 2085-9) 56 MG/DL See_Comment [Automated messa ge] The system which generated this result transmitted reference range: >39 MG/DL. The reference range was not used to interpret this result as normal/abnormal. RISK RATIO LDL/HDL (test code = 12341-6) 2.23 RATIO See_Comment [Automated message] The system which generated this result transmitted reference range: <3.22 RATIO. The reference range was not used to interpret this result as normal/abnormal. TRIGLYCERIDES (test code = 2571-8) 89 MG/DL See_Comment [Automated [employer]] The system which generated this result transmitted reference range: <150 MG/DL. The reference range was not used to interpret this result as normal/abnormal. COMPREHENSIVE METABOLIC [id number] 00:00:00* Test Item Value Reference Range Interpretation Comme nts ALBUMIN (test code = 1751-7) 4.8 G/DL See_Comment [Automated messa ge] The system which generated this result transmitted reference range: 3.5-5.2 G/DL. The reference range was not used to interpret this result as normal/abnormal. ALKALINE PHOSPHATASE (test code = 6768-6) 59 U/L See_Comment [Automated message] The system which generated this result transmitted reference range: 40-112 U/L. The reference range was not used to interpret this result as normal/abnormal. BILIRUBIN, TOTAL (test code = 1975-2) 0.3 MG/DL See_Comment [Automated message] The system which generated this result transmitted reference range: <=1.2 MG/DL. The reference range was not used to interpret this result as normal/abnormal. BUN (test code = 3094-0) 17 MG/DL See_Comment [Automated [employer]] The system which generated this result transmitted reference range: 6-20 MG/DL. The reference range was not used to interpret this result as normal/abnormal. CALCIUM (test code = 74569-0) 9.4 MG/DL See_Comment [Automated messa ge] The system which generated this result transmitted reference range: 8.5-10.5 MG/DL. The reference range was not used to interpret this result as normal/abnormal. CALC A/G RATIO (test code = 1759-0) 2.1 RATIO See_Comment [Automated messa ge] The system which generated this result transmitted reference range: 1.0-2.6 RATIO. The reference range was not used to interpret this result as normal/abnormal. CALC BUN/CREAT (test code = 3097-3) 23 RATIO See_Comment [Automated messa ge] The system which generated this result transmitted reference range: 6-28 RATIO. The reference range was not used to interpret this result as normal/abnormal. CALC GLOBULIN (test code = 96508-3) 2.3 G/DL See_Comment [Automated messa ge] The system which generated this result transmitted reference range: 1.9-3.7 G/DL. The reference range was not used to interpret this result as normal/abnormal. CARBON DIOXIDE (test code = 1963-8) 26 MEQ/L See_Comment [Automated messa ge] The system which generated this result transmitted reference range: 19-31 MEQ/L. The reference range was not used to interpret this result as normal/abnormal. CHLORIDE (test code = 2075-0) 103 MEQ/L See_Comment [Automated messa ge] The system which generated this result transmitted reference range: 95-107 MEQ/L. The reference range was not used to interpret this result as normal/abnormal. CREATININE (test code = 2160-0) 0.73 MG/DL See_Comment [Automated messa ge] The system which generated this result transmitted reference range: 0.60-1.30 MG/DL. The reference range was not used to interpret this result as normal/abnormal. eGFR (2020 CKD-EPI) (test code = 12766-7) 113 ML/MIN/1.73 See_Comment [Automated message] The system which generated this result transmitted reference range: >60 ML/MIN/1.73. The reference range was not used to interpret this result as normal/abnormal. GLUCOSE (test code = 1558-6) 71 MG/DL See_Comment [Automated messa ge] The system which generated this result transmitted reference range: 70-99 MG/DL. The reference range was not used to interpret this result as normal/abnormal. POTASSIUM (test code = 2823-3) 3.9 MEQ/L See_Comment [Automated messa ge] The system which generated this result transmitted reference range: 3.5-5.4 MEQ/L. The reference range was not used to interpret this result as normal/abnormal. PROTEIN, TOTAL (test code = 2885-2) 7.1 G/DL See_Comment [Automated messa ge] The system which generated this result transmitted reference range: 6.1-8.3 G/DL. The reference range was not used to interpret this result as normal/abnormal. AST (test code = 1920-8) 11 U/L See_Comment [Automated messa ge] The system which generated this result transmitted reference range: 9-40 U/L. The reference range was not used to interpret this result as normal/abnormal. ALT (test code = 1742-6) 16 U/L See_Comment [Automated messa ge] The system which generated this result transmitted reference range: 5-40 U/L. The reference range was not used to interpret this result as normal/abnormal. SODIUM (test code = 2951-2) 141 MEQ/L See_Comment [Automated messa ge] The system which generated this result transmitted reference range: 133-146 MEQ/L. The reference range was not used to interpret this result as normal/abnormal. Lipid Panel With LDL/HDL [id number] 00:00:00* Test Item Value Reference Range Interpretation Comme nts Cholesterol, Total (test code = 2093-3) 206 mg/dL See_Comment H [Automated message] The system which generated this result transmitted reference range: 100-199 mg/dL. The reference range was not used to interpret this result as normal/abnormal. Triglycerides (test code = 2571-8) 319 mg/dL See_Comment H [Automated messa ge] The system which generated this result transmitted reference range: 0-149 mg/dL. The reference range was not used to interpret this result as normal/abnormal. HDL Cholesterol (test code = 2085-9) 39 mg/dL See_Comment L [Automated messa ge] The system which generated this result transmitted reference range: >39 mg/dL. The reference range was not used to interpret this result as normal/abnormal. UA/M w/rflx Culture, [id number] 00:00:00* Test Item Value Reference Range Interpretation Comme nts Specific [place] (test code = 2965-2) >=1.030 1.005-1.030 A pH (test code = 5803-2) 6.0 5.0-7.5 Urine-Color (test code = 5778-6) Yellow Yellow Appearance (test code = 5767-9) Cloudy Clear A WBC Esterase (test code = 5799-2) Negative Negative Protein (test code = 44626-4) 1+ Negative/Trace A Glucose (test code = 2349-9) Negative Negative Ketones (test code = 2514-8) Trace Negative A Occult Blood (test code = 5794-3) 3+ Negative A Bilirubin (test code = 5770-3) Negative Negative Urobilinogen,Semi-Qn (test code = 54104-0) 0.2 mg/dL See_Comment [Automated message] The system which generated this result transmitted reference range: 0.2-1.0 mg/dL. The reference range was not used to interpret this result as normal/abnormal. Nitrite, Urine (test code = 5802-4) Negative Negative Microscopic Examination (test code = 31929-4) See below: Urinalysis Reflex (test code = UNLOINC) Ferritin, [id number] 00:00:00* Test Item Value Reference Range Interpretation Comme nts Ferritin (test code = 2276-4) 33 ng/mL See_Comment [Automated [employer]] The system which generated this result transmitted reference range: 15-150 ng/mL. The reference range was not used to interpret this result as normal/abnormal. Hemoglobin [id number] 00:00:00* Test Item Value Reference Range Interpretation Comme nts Hemoglobin A1c (test code = 4548-4) 5.7 % See_Comment H [Automated [employer]] The system which generated this result transmitted reference range: 4.8-5.6 %. The reference range was not used to interpret this result as normal/abnormal. Comp. Metabolic Panel (14) (CMP)2022-05-04 00:00:00* Test Item Value Reference Range Interpretation Comme nts Glucose (test code = 2345-7) 95 mg/dL See_Comment [Automated messa ge] The system which generated this result transmitted reference range: 65-99 mg/dL. The reference range was not used to interpret this result as normal/abnormal. BUN (test code = 3094-0) 18 mg/dL See_Comment [Automated messa ge] The system which generated this result transmitted reference range: 6-20 mg/dL. The reference range was not used to interpret this result as normal/abnormal. Creatinine (test code = 2160-0) 0.75 mg/dL See_Comment [Automated messa ge] The system which generated this result transmitted reference range: 0.57-1.00 mg/dL. The reference range was not used to interpret this result as normal/abnormal. BUN/Creatinine Ratio (test code = 3097-3) 24 9-23 H Sodium (test code = 2951-2) 141 mmol/L See_Comment [Automated messa ge] The system which generated this result transmitted reference range: 134-144 mmol/L. The reference range was not used to interpret this result as normal/abnormal. Potassium (test code = 2823-3) 4.0 mmol/L See_Comment [Automated messa ge] The system which generated this result transmitted reference range: 3.5-5.2 mmol/L. The reference range was not used to interpret this result as normal/abnormal. Chloride (test code = 2075-0) 102 mmol/L See_Comment [Automated messa ge] The system which generated this result transmitted reference range: 96-106 mmol/L. The reference range was not used to interpret this result as normal/abnormal. Carbon Dioxide, Total (test code = 8-9) 25 mmol/L See_Comment [Automated message] The system which generated this result transmitted reference range: 20-29 mmol/L. The reference range was not used to interpret this result as normal/abnormal. Calcium (test code = 30986-5) 9.6 mg/dL See_Comment [Automated messa ge] The system which generated this result transmitted reference range: 8.7-10.2 mg/dL. The reference range was not used to interpret this result as normal/abnormal. Protein, Total (test code = 2885-2) 7.2 g/dL See_Comment [Automated messa ge] The system which generated this result transmitted reference range: 6.0-8.5 g/dL. The reference range was not used to interpret this result as normal/abnormal. Albumin (test code = 1751-7) 4.8 g/dL See_Comment [Automated [employer]] The system which generated this result transmitted reference range: 3.9-5.0 g/dL. The reference range was not used to interpret this result as normal/abnormal. Globulin, Total (test code = 79784-0) 2.4 g/dL See_Comment [Automated [employer]] The system which generated this result transmitted reference range: 1.5-4.5 g/dL. The reference range was not used to interpret this result as normal/abnormal. A/G Ratio (test code = 1759-0) 2.0 1.2-2.2 Bilirubin, Total (test code = 1975-2) <0.2 mg/dL See_Comment [Automated [employer]] The system which generated this result transmitted reference range: 0.0-1.2 mg/dL. The reference range was not used to interpret this result as normal/abnormal. Alkaline Phosphatase (test code = 6768-6) 83 IU/L See_Comment [Automated message] The system which generated this result transmitted reference range: 44-121 IU/L. The reference range was not used to interpret this result as normal/abnormal. AST (SGOT) (test code = 1920-8) 20 IU/L See_Comment [Automated [employer]] The system which generated this result transmitted reference range: 0-40 IU/L. The reference range was not used to interpret this result as normal/abnormal. ALT (SGPT) (test code = 1742-6) 33 IU/L See_Comment H [Automated [employer]] The system which generated this result transmitted reference range: 0-32 IU/L. The reference range was not used to interpret this result as normal/abnormal. Uric Acid, [id number] 00:00:00* Test Item Value Reference Range Interpretation Comme nts Uric Acid (test code = 3084-1) 4.6 mg/dL See_Comment [Automated [employer]] The system which generated this result transmitted reference range: 2.6-6.2 mg/dL. The reference range was not used to interpret this result as normal/abnormal. CBC With Differential/[id number] 00:00:00* Test Item Value Reference Range Interpretation Comme nts WBC (test code = 6690-2) 8.1 x10E3/uL See_Comment [Automated messa ge] The system which generated this result transmitted reference range: 3.4-10.8 x10E3/uL. The reference range was not used to interpret this result as normal/abnormal. RBC (test code = 789-8) 4.40 x10E6/uL See_Comment [Automated messa ge] The system which generated this result transmitted reference range: 3.77-5.28 x10E6/uL. The reference range was not used to interpret this result as normal/abnormal. Hemoglobin (test code = 718-7) 12.1 g/dL See_Comment [Automated messa ge] The system which generated this result transmitted reference range: 11.1-15.9 g/dL. The reference range was not used to interpret this result as normal/abnormal. Hematocrit (test code = 4544-3) 37.0 % See_Comment [Automated messa ge] The system which generated this result transmitted reference range: 34.0-46.6 %. The reference range was not used to interpret this result as normal/abnormal. MCV (test code = 787-2) 84 fL See_Comment [Automated messa ge] The system which generated this result transmitted reference range: 79-97 fL. The reference range was not used to interpret this result as normal/abnormal. MCH (test code = 785-6) 27.5 pg See_Comment [Automated messa ge] The system which generated this result transmitted reference range: 26.6-33.0 pg. The reference range was not used to interpret this result as normal/abnormal. MCHC (test code = 786-4) 32.7 g/dL See_Comment [Automated messa ge] The system which generated this result transmitted reference range: 31.5-35.7 g/dL. The reference range was not used to interpret this result as normal/abnormal. RDW (test code = 788-0) 12.4 % See_Comment [Automated messa ge] The system which generated this result transmitted reference range: 11.7-15.4 %. The reference range was not used to interpret this result as normal/abnormal. Platelets (test code = 777-3) 274 x10E3/uL See_Comment [Automated messa ge] The system which generated this result transmitted reference range: 150-450 x10E3/uL. The reference range was not used to interpret this result as normal/abnormal. Neutrophils (test code = 770-8) 56 % Not Estab. % Lymphs (test code = 736-9) 35 % Not Estab. % Monocytes (test code = 5905-5) 7 % Not Estab. % Eos (test code = 713-8) 1 % Not Estab. % Basos (test code = 706-2) 1 % Not Estab. % Immature Cells (test code = UNLOINC) Neutrophils (Absolute) (test code = 751-8) 4.5 x10E3/uL See_Comment [Automated messa ge] The system which generated this result transmitted reference range: 1.4-7.0 x10E3/uL. The reference range was not used to interpret this result as normal/abnormal. Lymphs (Absolute) (test code = 731-0) 2.9 x10E3/uL See_Comment [Automated m essage] The system which generated this result transmitted reference range: 0.7-3.1 x10E3/uL. The reference range was not used to interpret this result as normal/abnormal. Monocytes(Absolute) (test code = 742-7) 0.5 x10E3/uL See_Comment [Automated m essage] The system which generated this result transmitted reference range: 0.1-0.9 x10E3/uL. The reference range was not used to interpret this result as normal/abnormal. Eos (Absolute) (test code = 711-2) 0.1 x10E3/uL See_Comment [Automated messa ge] The system which generated this result transmitted reference range: 0.0-0.4 x10E3/uL. The reference range was not used to interpret this result as normal/abnormal. Baso (Absolute) (test code = 704-7) 0.1 x10E3/uL See_Comment [Automated messa ge] The system which generated this result transmitted reference range: 0.0-0.2 x10E3/uL. The reference range was not used to interpret this result as normal/abnormal. Immature Granulocytes (test code = 27757-7) 0 % Not Estab. % Immature Grans (Abs) (test code = 33446-9) 0.0 x10E3/uL See_Comment [Automated message] The system which generated this result transmitted reference range: 0.0-0.1 x10E3/uL. The reference range was not used to interpret this result as normal/abnormal. NRBC (test code = 91748-7) Hematology Comments: (test code = 21093-3) Vitamin D, 81-Cnpbgyl3133-97-16 00:00:00* Test Item Value Reference Range Interpretation Comme [facility] Vitamin D, 25-Hydroxy (test code = 1989-3) 17.2 ng/mL See_Comment L [Automated messa ge] The system which generated this result transmitted reference range: 30.0-100.0 ng/mL. The reference range was not used to interpret this result as normal/abnormal. TSH reflex to [id number] 00:00:00* Test Item Value Reference Range Interpretation Comme [facility] TSH (test code = 80393-8) 0.804 uIU/mL See_Comment [Automated messa ge] The system which generated this result transmitted reference range: 0.450-4.500 uIU/mL. The reference range was not used to interpret this result as normal/abnormal. Lipid Panel With LDL/HDL [id number] 00:00:00* Test Item Value Reference Range Interpretation Comme nts Cholesterol, Total (test code = 2093-3) 206 mg/dL See_Comment H [Automated message] The system which generated this result transmitted reference range: 100-199 mg/dL. The reference range was not used to interpret this result as normal/abnormal. Triglycerides (test code = 2571-8) 319 mg/dL See_Comment H [Automated messa ge] The system which generated this result transmitted reference range: 0-149 mg/dL. The reference range was not used to interpret this result as normal/abnormal. HDL Cholesterol (test code = 2085-9) 39 mg/dL See_Comment L [Automated messa ge] The system which generated this result transmitted reference range: >39 mg/dL. The reference range was not used to interpret this result as normal/abnormal. UA/M w/rflx Culture, [id number] 00:00:00* Test Item Value Reference Range Interpretation Comme nts Specific [place] (test code = 2965-2) >=1.030 1.005-1.030 A pH (test code = 5803-2) 6.0 5.0-7.5 Urine-Color (test code = 5778-6) Yellow Yellow Appearance (test code = 5767-9) Cloudy Clear A WBC Esterase (test code = 5799-2) Negative Negative Protein (test code = 46202-1) 1+ Negative/Trace A Glucose (test code = 2349-9) Negative Negative Ketones (test code = 2514-8) Trace Negative A Occult Blood (test code = 5794-3) 3+ Negative A Bilirubin (test code = 5770-3) Negative Negative Urobilinogen,Semi-Qn (test code = 82612-6) 0.2 mg/dL See_Comment [Automated message] The system which generated this result transmitted reference range: 0.2-1.0 mg/dL. The reference range was not used to interpret this result as normal/abnormal. Nitrite, Urine (test code = 5802-4) Negative Negative Microscopic Examination (test code = 08461-5) See below: Urinalysis Reflex (test code = UNLOINC) Ferritin, [id number] 00:00:00* Test Item Value Reference Range Interpretation Comme nts Ferritin (test code = 2276-4) 33 ng/mL See_Comment [Automated [employer]] The system which generated this result transmitted reference range: 15-150 ng/mL. The reference range was not used to interpret this result as normal/abnormal. Hemoglobin [id number] 00:00:00* Test Item Value Reference Range Interpretation Comme nts Hemoglobin A1c (test code = 4548-4) 5.7 % See_Comment H [Automated [employer]] The system which generated this result transmitted reference range: 4.8-5.6 %. The reference range was not used to interpret this result as normal/abnormal. Comp. Metabolic Panel (14) (CMP)2022-05-04 00:00:00* Test Item Value Reference Range Interpretation Comme nts Glucose (test code = 2345-7) 95 mg/dL See_Comment [Automated [employer]] The system which generated this result transmitted reference range: 65-99 mg/dL. The reference range was not used to interpret this result as normal/abnormal. BUN (test code = 3094-0) 18 mg/dL See_Comment [Automated messa ge] The system which generated this result transmitted reference range: 6-20 mg/dL. The reference range was not used to interpret this result as normal/abnormal. Creatinine (test code = 2160-0) 0.75 mg/dL See_Comment [Automated messa ge] The system which generated this result transmitted reference range: 0.57-1.00 mg/dL. The reference range was not used to interpret this result as normal/abnormal. BUN/Creatinine Ratio (test code = 3097-3) 24 9-23 H Sodium (test code = 2951-2) 141 mmol/L See_Comment [Automated messa ge] The system which generated this result transmitted reference range: 134-144 mmol/L. The reference range was not used to interpret this result as normal/abnormal. Potassium (test code = 2823-3) 4.0 mmol/L See_Comment [Automated messa ge] The system which generated this result transmitted reference range: 3.5-5.2 mmol/L. The reference range was not used to interpret this result as normal/abnormal. Chloride (test code = 2075-0) 102 mmol/L See_Comment [Automated messa ge] The system which generated this result transmitted reference range: 96-106 mmol/L. The reference range was not used to interpret this result as normal/abnormal. Carbon Dioxide, Total (test code = 8-9) 25 mmol/L See_Comment [Automated message] The system which generated this result transmitted reference range: 20-29 mmol/L. The reference range was not used to interpret this result as normal/abnormal. Calcium (test code = 10218-5) 9.6 mg/dL See_Comment [Automated messa ge] The system which generated this result transmitted reference range: 8.7-10.2 mg/dL. The reference range was not used to interpret this result as normal/abnormal. Protein, Total (test code = 2885-2) 7.2 g/dL See_Comment [Automated messa ge] The system which generated this result transmitted reference range: 6.0-8.5 g/dL. The reference range was not used to interpret this result as normal/abnormal. Albumin (test code = 1751-7) 4.8 g/dL See_Comment [Automated [employer]] The system which generated this result transmitted reference range: 3.9-5.0 g/dL. The reference range was not used to interpret this result as normal/abnormal. Globulin, Total (test code = 31129-1) 2.4 g/dL See_Comment [Automated [employer]] The system which generated this result transmitted reference range: 1.5-4.5 g/dL. The reference range was not used to interpret this result as normal/abnormal. A/G Ratio (test code = 1759-0) 2.0 1.2-2.2 Bilirubin, Total (test code = 1975-2) <0.2 mg/dL See_Comment [Automated [employer]] The system which generated this result transmitted reference range: 0.0-1.2 mg/dL. The reference range was not used to interpret this result as normal/abnormal. Alkaline Phosphatase (test code = 6768-6) 83 IU/L See_Comment [Automated message] The system which generated this result transmitted reference range: 44-121 IU/L. The reference range was not used to interpret this result as normal/abnormal. AST (SGOT) (test code = 1920-8) 20 IU/L See_Comment [Automated [employer]] The system which generated this result transmitted reference range: 0-40 IU/L. The reference range was not used to interpret this result as normal/abnormal. ALT (SGPT) (test code = 1742-6) 33 IU/L See_Comment H [Automated [employer]] The system which generated this result transmitted reference range: 0-32 IU/L. The reference range was not used to interpret this result as normal/abnormal. Uric Acid, [id number] 00:00:00* Test Item Value Reference Range Interpretation Comme nts Uric Acid (test code = 3084-1) 4.6 mg/dL See_Comment [Automated [employer]] The system which generated this result transmitted reference range: 2.6-6.2 mg/dL. The reference range was not used to interpret this result as normal/abnormal. CBC With Differential/[id number] 00:00:00* Test Item Value Reference Range Interpretation Comme nts WBC (test code = 6690-2) 8.1 x10E3/uL See_Comment [Automated messa ge] The system which generated this result transmitted reference range: 3.4-10.8 x10E3/uL. The reference range was not used to interpret this result as normal/abnormal. RBC (test code = 789-8) 4.40 x10E6/uL See_Comment [Automated messa ge] The system which generated this result transmitted reference range: 3.77-5.28 x10E6/uL. The reference range was not used to interpret this result as normal/abnormal. Hemoglobin (test code = 718-7) 12.1 g/dL See_Comment [Automated messa ge] The system which generated this result transmitted reference range: 11.1-15.9 g/dL. The reference range was not used to interpret this result as normal/abnormal. Hematocrit (test code = 4544-3) 37.0 % See_Comment [Automated messa ge] The system which generated this result transmitted reference range: 34.0-46.6 %. The reference range was not used to interpret this result as normal/abnormal. MCV (test code = 787-2) 84 fL See_Comment [Automated messa ge] The system which generated this result transmitted reference range: 79-97 fL. The reference range was not used to interpret this result as normal/abnormal. MCH (test code = 785-6) 27.5 pg See_Comment [Automated messa ge] The system which generated this result transmitted reference range: 26.6-33.0 pg. The reference range was not used to interpret this result as normal/abnormal. MCHC (test code = 786-4) 32.7 g/dL See_Comment [Automated messa ge] The system which generated this result transmitted reference range: 31.5-35.7 g/dL. The reference range was not used to interpret this result as normal/abnormal. RDW (test code = 788-0) 12.4 % See_Comment [Automated messa ge] The system which generated this result transmitted reference range: 11.7-15.4 %. The reference range was not used to interpret this result as normal/abnormal. Platelets (test code = 777-3) 274 x10E3/uL See_Comment [Automated messa ge] The system which generated this result transmitted reference range: 150-450 x10E3/uL. The reference range was not used to interpret this result as normal/abnormal. Neutrophils (test code = 770-8) 56 % Not Estab. % Lymphs (test code = 736-9) 35 % Not Estab. % Monocytes (test code = 5905-5) 7 % Not Estab. % Eos (test code = 713-8) 1 % Not Estab. % Basos (test code = 706-2) 1 % Not Estab. % Immature Cells (test code = UNLOINC) Neutrophils (Absolute) (test code = 751-8) 4.5 x10E3/uL See_Comment [Automated messa ge] The system which generated this result transmitted reference range: 1.4-7.0 x10E3/uL. The reference range was not used to interpret this result as normal/abnormal. Lymphs (Absolute) (test code = 731-0) 2.9 x10E3/uL See_Comment [Automated m essage] The system which generated this result transmitted reference range: 0.7-3.1 x10E3/uL. The reference range was not used to interpret this result as normal/abnormal. Monocytes(Absolute) (test code = 742-7) 0.5 x10E3/uL See_Comment [Automated m essage] The system which generated this result transmitted reference range: 0.1-0.9 x10E3/uL. The reference range was not used to interpret this result as normal/abnormal. Eos (Absolute) (test code = 711-2) 0.1 x10E3/uL See_Comment [Automated messa ge] The system which generated this result transmitted reference range: 0.0-0.4 x10E3/uL. The reference range was not used to interpret this result as normal/abnormal. Baso (Absolute) (test code = 704-7) 0.1 x10E3/uL See_Comment [Automated messa ge] The system which generated this result transmitted reference range: 0.0-0.2 x10E3/uL. The reference range was not used to interpret this result as normal/abnormal. Immature Granulocytes (test code = 10541-4) 0 % Not Estab. % Immature Grans (Abs) (test code = 82788-0) 0.0 x10E3/uL See_Comment [Automated message] The system which generated this result transmitted reference range: 0.0-0.1 x10E3/uL. The reference range was not used to interpret this result as normal/abnormal. NRBC (test code = 65881-5) Hematology Comments: (test code = 48578-5) Vitamin D, 94-Weogves8332-26-16 00:00:00* Test Item Value Reference Range Interpretation Comme [facility] Vitamin D, 25-Hydroxy (test code = 1989-3) 17.2 ng/mL See_Comment L [Automated [employer]] The system which generated this result transmitted reference range: 30.0-100.0 ng/mL. The reference range was not used to interpret this result as normal/abnormal. TSH reflex to [id number] 00:00:00* Test Item Value Reference Range Interpretation Comme [facility] TSH (test code = 87510-2) 0.804 uIU/mL See_Comment [Automated [employer]] The system which generated this result transmitted reference range: 0.450-4.500 uIU/mL. The reference range was not used to interpret this result as normal/abnormal. HGB [id number] 08:24:00* Test Item Value Reference Range Interpretation Comme [facility] HEMOGLOBIN (test code = HGB) 7.1 g/dL 10.7-13.9 L HEMATOCRIT (test code = HCT) 22.4 % 32.1-42.1 L CBC W/AUTO [id number] 06:23:00* Test Item Value Reference Range Interpretation Comme [facility] WHITE BLOOD CELL (test code = WBC) 8.6 K/mm3 6.6-12.1 N RED BLOOD CELL (test code = RBC) 2.83 M/mm3 3.45-5.01 L HEMOGLOBIN (test code = HGB) 7.7 g/dL 10.7-13.9 L Results verified by repeat analysis HEMATOCRIT (test code = HCT) 23.9 % 32.1-42.1 L Results verified by repeat analysis MEAN CELL VOLUME (test code = MCV) 85 fL 84.1-94.8 N MEAN CELL HGB (test code = MCH) 27.2 pg 27-35 N MEAN CELL HGB CONCETRATION (test code = MCHC) 32.2 gm/dL 32.2-34.1 N RED CELL DISTRIBUTION WIDTH (test code = RDW) 13.3 % 12.4-16.5 N PLATELET COUNT (test code = PLT) 143 K/mm3 133-385 N MEAN PLATELET VOLUME (test code = MPV) 11.5 fl 9.1-12.7 N NEUTROPHIL % (test code = NT%) 69.6 % 56.5-79.4 N LYMPHOCYTE % (test code = LY%) 21.9 % 14.3-34.3 N MONOCYTE % (test code = MO%) 7.0 % 5.1-10.4 N EOSINOPHIL % (test code = EO%) 0.6 % 0.1-3.0 N BASOPHIL % (test code = BA%) 0.2 % 0.1-1.0 N NEUTROPHIL # (test code = NT#) 6.0 K/mm3 LYMPHOCYTE # (test code = LY#) 1.9 K/mm3 MONOCYTE # (test code = MO#) 0.6 K/mm3 EOSINOPHIL # (test code = EO#) 0.05 K/mm3 BASOPHIL # (test code = BA#) 0.0 K/mm3 RBC MORPHOLOGY REQUIRED (test code = RBCM) NORMAL NORMAL PLATELET MORPHOLOGY REQUIRED (test code = PLTMR) NORMAL NORMAL Coronavirus 2018 nCoV [id number] 10:02:00* Test Item Value Reference Range Interpretation Comme [facility] Coronavirus 2019 nCoV Bedside (test code = [id number]) Negative Negative RESULTS CALLED RAFA BERNAL BACK & CONFIRMED? PEREZ TrujilloLAB.PR 12/09/19 1001 This result does not rule out co-infections with otherpathogens. * False negative results may occur if a specimen isimproperly collected, transported or handled. False negativeresults may also occur if amplification inhibitors arepresent in the specimen or if inadequate levels of virusesare present in the specimen. * As with any molecular test, if the virus mutates in thetarget region, COVID-19 may not be detected or may bedetected less predictably.TEST PERFORMED UNDER AN EMERGENCY USE AUTHORIZATION FROM FDA AG HEPATITIS B [id number] 09:59:00* Test Item Value Reference Range Interpretation Comme [facility] AG HEPATITIS B SURFACE (test code = HBSAG) NONREACTIVE NONREACTIVE IS CONSENT FORM SIGNED FOR HIV TESTING? YAB HEPATITIS C [id number] 09:59:00* Test Item Value Reference Range Interpretation Comme nts AB HEPATITIS C (test code = HCVAB) NONREACTIVE NONREACTIVE SIGNAL TO CUTOFF (test code = CUTOFF) 0.14 <0.80 N IS CONSENT FORM SIGNED FOR HIV TESTING? ALY [id number] 09:59:00* Test Item Value Reference Range Interpretation Comme nts AB TREPONEMA (test code = TREPAB) NONREACTIVE NONREACTIVE IS CONSENT FORM SIGNED FOR HIV TESTING? ALY HIV 1 09:59:00* Test Item Value Reference Range Interpretation Comme nts AB HIV 1 2 (test code = [id number]) NONREACTIVE NONREACTIVE Done by [employer] HIV Ag/Ab Combo Screen IS CONSENT FORM SIGNED FOR HIV TESTING? YAG HEPATITIS B [id number] 09:25:00* Test Item Value Reference Range Interpretation Comme nts AG HEPATITIS B SURFACE (test code = HBSAG) NONREACTIVE NONREACTIVE IS CONSENT FORM SIGNED FOR HIV TESTING? ALY HEPATITIS C [id number] 09:25:00* Test Item Value Reference Range Interpretation Comme nts AB HEPATITIS C (test code = HCVAB) NONREACTIVE SIGNAL TO CUTOFF (test code = CUTOFF) <0.80 IS CONSENT FORM SIGNED FOR HIV TESTING? ALY [id number] 09:25:00* Test Item Value Reference Range Interpretation Comme nts AB TREPONEMA (test code = TREPAB) NONREACTIVE NONREACTIVE IS CONSENT FORM SIGNED FOR HIV TESTING? KATEYB HIV 1 09:25:00* Test Item Value Reference Range Interpretation Comme nts AB HIV 1 2 (test code = KYU69FC) NONREACTIVE IS CONSENT FORM SIGNED FOR HIV TESTING? YCBC W/AUTO [id number] 08:50:00* Test Item Value Reference Range Interpretation Comme nts WHITE BLOOD CELL (test code = WBC) 6.4 K/mm3 6.6-12.1 L RED BLOOD CELL (test code = RBC) 3.99 M/mm3 3.45-5.01 N HEMOGLOBIN (test code = HGB) 10.7 g/dL 10.7-13.9 N HEMATOCRIT (test code = HCT) 33.4 % 32.1-42.1 N MEAN CELL VOLUME (test code = MCV) 84 fL 84.1-94.8 L MEAN CELL HGB (test code = MCH) 26.8 pg 27-35 L MEAN CELL HGB CONCETRATION ( test code = MCHC) 32.0 gm/dL 32.2-34.1 L RED CELL DISTRIBUTION WIDTH (test code = RDW) 13.3 % 12.4-16.5 N PLATELET COUNT (test code = PLT) 152 K/mm3 133-385 N MEAN PLATELET VOLUME (test c ode = MPV) 11.4 fl 9.1-12.7 N NEUTROPHIL % (test code = NT%) 70.1 % 56.5-79.4 N LYMPHOCYTE % (test code = LY%) 21.9 % 14.3-34.3 N MONOCYTE % (test code = MO%) 6.9 % 5.1-10.4 N EOSINOPHIL % (test code = EO%) 0.6 % 0.1-3.0 N BASOPHIL % (test code = BA%) 0.2 % 0.1-1.0 N NEUTROPHIL # (test code = NT#) 4.5 K/mm3 LYMPHOCYTE # (test code = LY#) 1.4 K/mm3 MONOCYTE # (test code = MO#) 0.4 K/mm3 EOSINOPHIL # (test code = EO#) 0.04 K/mm3 BASOPHIL # (test code = BA#) 0.0 K/mm3 RBC MORPHOLOGY REQUIRED (elysia t code = RBCM) NORMAL NORMAL PLATELET MORPHOLOGY REQUIRED (test code = PLTMR) NORMAL NORMAL RUPTURE OF [id number] 07:47:00* Test Item Value Reference Range Interpretation Comme nts RUPTURE OF MEMBRANES (test c ode = ROM) RUPTURED POCT URINALYSIS W SPECIFIC [id number] 18:21:00* Test Item Value Reference Range Interpretation Comme nts POCT U SP GRAV (test code = 3255) . 1.005-1.025 POCT PH U (test code = 3254) . 5-8 POCT U LEUK EST (test code = 3263) . Negative - N egative POCT U NIT (test code = 3262) . Negative - Negati ve POCT U PROT (test code = 3259) Trace Negative - Negat yu POCT U GLU (test code = 3256) neg Negative - Negati ve POCT U KETONE (test code = 3258) . Negative - Neg ative POCT U UROBILI (test code = 3260) . 0.2-1 POCT U BILI (test code = 3261) . Negative - Negat yu POCT U BLD (test code = 3257) . Negative - Negati ve POCT U COLOR (test code = 3266) POCT U APPEAR (test code = 3267) [id number]:37[facility]* Test Item Value Reference Range Interpretation Comme nts POCT PREG (test code = 1605) Positive On board controls acceptable with C Line (test code = 3574) Yes POCT PREG LOT # (test code = 3575) POCT PREG TEST DATE ( test code = 3576) [facility] URINALYSIS W/O SPECIFIC [id number] 21:37:00* Test Item Value Reference Range Interpretation Comme nts POCT PH U (test code = 3254) 7 mg/dl 5-8 POCT U LEUK EST (test code = 3263) Neg Negative - Negative POCT U NIT (test code = 3262) Neg Negative - Negati ve POCT U PROT (test code = 3259) Trace Negative - Negat yu POCT U GLU (test code = 3256) Neg Negative - Negati ve POCT U KETONE (test code = 3258) None Negative - Neg ative POCT U BLD (test code = 3257) Neg Negative - Negati ve [facility] Notes Date/Time Note Provider Source 2019-12-19 22:19:00 [id number]/ [id number] [id number] [address] PATIENT NAME: LIZY ROBERTS ADMIT DATE: 12/09/19ACCOUNT NO: [id number] ROOM NO: [facility] AGE: 24 SEX: F ADMITTING PHYSICIAN: Fermin Warren MD ATTENDING PHYSICIAN: Fermin Warren MD OPERATION DATE: 12/12/2019 PREOPERATIVE DIAGNOSES:1. Intrauterine at term.2. Failed induction of labor. POSTOPERATIVE DIAGNOSES:1. Intrauterine at term.2. Failed induction of labor. PROCEDURE: Primary low transverse section via Pfannenstiel. SURGEON: Fermin Warren MD LEARNING AND DEVELOPMENT DIRECTOR: Romaine Rico SA. ANESTHESIA: COMPLICATIONS: None. FINDINGS: Liveborn infant in cephalic presentation, Apgars and weight werestill pending. Placenta 3-vessel cord intact. Uterus, tubes, and ovarieswithin normal limits. PROCEDURE IN DETAIL: After the risks, benefits, alternatives, and the nature ofthe procedure were discussed with the patient at length, she voicedunderstanding. All her questions were answered to her satisfaction and shesigned consent. She was taken to the operating room where epidural anesthesiawas found to be adequate. She was then prepared and draped in normal sterilefashion in dorsal supine position with a leftward tilt. A Pfannenstiel skinincision was done with a scalpel and carried down to the underlying layer offascia, which was incised in the midline and extended laterally with Mayoscissors. The fascial borders were serially grasped with Franca clamps,elevated, and the underlying layer of muscles were dissected off bluntly. Themuscles were in the midline as well as the peritoneum. The bladderflap was created. The bladder blade was reinserted and the lower segment of theuterus was incised in the midline and extended laterally with the molding machine operator helper'sfingers. Amniotomy was done with clear fluid obtained. The head was deliveredatraumatically followed by the rest of the body. Nose and mouth were suctioned. Cord clamped and cut. Baby handed off to the awaiting baby care team. Placenta was delivered spontaneously. The uterus was exteriorized and clearedof all clots and debris. The uterine incision was closed with 1.0 chromic inusual locked fashion. Another layer of the same suture was placed to obtain PATIENT NAME: LIZY ROBERTS excellent hemostasis. The uterus was returned to the abdomen. The gutters werecleared of all clots and debris. The abdominal muscles were reapproximated withinterrupted 2.0 Vicryl stitches incorporating the underlying layer ofperitoneum. Excellent hemostasis was noted. The subcutaneous layer was closedwith 3.0 Vicryl in a running fashion. After irrigation with warm normal salinewas done, excellent hemostasis was noted. The skin was closed with freda. All counts were correct. The patient was taken to the recovery room awake andin stable condition. PATHOLOGY: Placenta. Dictated By: Fermin Warren MD WT: OP:F.JANNY/RONDA/NTSDD: 12/19/2019 22:19:01DT: 12/19/2019 23:15:01Conf#: [id number]/DID#: [id number] Authenticated by Fermin Warren MD On 12/20/2019 01:24:23 PM at 1324 PATIENT NAME: LIZY ROBERTS dxrykh0720-68-38J10:15:00F.[id number] lable for patient wqlpJIKRKJYDVNPDGR9988-72-57W82:24:51 [facility] 2019-12-14 17:49:00 [id number] I5IIX7p9O8nEjTbcrMpYap5MR47z7 VH8UBw+uVpTT8B/Y0saRFUmctXf9WzUFzM0066-69-70I32:4 [id number] [facility] [place] [id number] PATIENT NAME: LIZY ROBERTS ADMIT DATE: ACCOUNT NO: [id number] ROOM NO: AGE: 24 SEX: F ADMITTING PHYSICIAN: Fermin Warren MD ATTENDING PHYSICIAN: Fermin Warren MD OPERATION DATE: 12/10/2019 PREOPERATIVE DIAGNOSES:1. Intrauterine at 40 weeks.2. Failed augmentation of labor.3. Arrest of labor and failure to progress.4. Large for gestational age. POSTOPERATIVE DIAGNOSES:1. Intrauterine at 40 weeks.2. Failed augmentation of labor.3. Arrest of labor and failure to progress.4. Large for gestational age. PROCEDURE: Primary low transverse section via Pfannenstiel. SURGEON: Fermin Warren MD ASSISTANTS:1. Dr. Foley.2. JOSH Sanchez ANESTHESIA: COMPLICATIONS: None. ESTIMATED BLOOD LOSS: 700 mL. URINE OUTPUT: 75 mL, clear at the end of the procedure. INTRAVENOUS FLUIDS: 1000 mL LR. FINDINGS: Male , cephalic presentation, Apgars 8 and 9, weight 4420grams. Uterus, tubes, and ovaries within normal limits. PROCEDURE IN DETAIL: After the risks, benefits, alternatives, and the nature ofthe procedure were discussed with the patient at length, she voicedunderstanding, all her questions were answered to satisfaction and she signedconsent. She was taken to the operating room where epidural anesthesia wasfound to be adequate. She was then prepared and draped in normal sterilefashion in dorsal supine position with a leftward tilt. A Pfannenstiel skinincision was done with a scalpel and carried down to the underlying layer offascia, which was incised in the midline and extended laterally with Sublette PATIENT NAME: LIZY ROBERTS scissors. The fascial borders were serially grasped with Franca clamps,elevated, and the underlying layer of muscles were dissected off bluntly. Themuscles were in the midline as well as the peritoneum. The bladderflap was created. The bladder blade was reinserted and the lower segment of theuterus was incised in the midline and extended laterally with the molding machine operator helper'sfingers. Clear fluid was obtained. The head was delivered atraumaticallyfollowed by the rest of the body. Nose and mouth were suctioned. Cord clampedand cut. Baby handed off to the awaiting baby care team. Placenta wasdelivered spontaneously. The uterus was exteriorized and cleared of all clotsand debris. The uterine incision was closed with 1.0 chromic in usual lockedfashion. Another layer of the same suture was placed to obtain excellenthemostasis. The uterus was returned to the abdomen. The gutters were clearedof all clots and debris. The abdominal muscles were reapproximated withinterrupted 2.0 Vicryl sutures incorporating the underlying layer of peritoneum. Excellent hemostasis was noted. The fascia was closed with 0 Vicryl in arunning fashion. Excellent hemostasis was noted. Irrigation with warm normalsaline was done. Excellent hemostasis was noted. The subcutaneous layer wasclosed with 3.0 Vicryl in a running fashion. Excellent hemostasis was noted. The skin was closed with freda. All counts were correct. The patient wastaken to the recovery room awake and stable condition. PATHOLOGY: Placenta. Dictated By: Fermin Warren MD WT: OP:F.HIM/RONDA/NTSDD: 12/14/2019 17:49:02DT: 12/14/2019 18:03:37Conf#: [id number]/DID#: [id number] Authenticated by Fermin Warren MD On 12/17/2019 09:59:36 PM at 2200 PATIENT NAME: LIZY ROBERTS cszwpa1164-86-36E08:03:00F.[id number] lable for patient evbhPZNULJJCCAEFXK8189-21-47Y56:00:14 [facility] 2019-12-11 17:13:00 [id number] kCwiPsGmMnT/CSO574R6FlTChlRxW dghD8y7vOCfJl2+oerPYCuKNCa2fnuc4GB9696-53-44O45:1 3:00 [facility] Disch PostpartumREPORT#:[id number] REPORT STATUS: SignedDATE:12/11/19 TIME: 1713 PATIENT: LIZY ROBERTS UNIT #: [id number]#: [id number] [address] [birth year] AGE: 24 SEX: F ATTEND: Fermin Warren [facility] AUTHOR: Fermin Warren MD * ALL edits or amendments must be made on the electronic/computer document * Subjective SubjectivePatient reports: Patient reports: Yes: normal lochia, pain management effective, tolerating po well, voiding well, voiding without pain, flatus. No: complaints. Objective GeneralVS:Vital Signs Date Temp Pulse Resp B/P B/P Mean Pulse Ox FiO2 12/09-12/10 97.8-98.5 73-105 18 98-112/64-81 Last Documented: Result Date Time B/P 112/12/10 1235 Temp 98.5 12/10 1235 Pulse 105 12/10 1235 Resp 18 12/10 1235 B/P Mean 101.0 12/09 0520 Pulse Ox 98 12/09 0520 Patient Weight Weight (lb): 220Weight (oz): Weight (kg): 99.79 Physical ExamNeuro: Exam: alert, oriented x3, normal speechAbdomen: post gravid, soft, no abnormal tendernessIncision site: freda intact, dry, no drainage, no inflammationUterus: tender, involution appropriate, non-tender Discharge Summary Discharge SummaryHospital course: augmentation of labor, primary LTCS in labor (for arrest of labor)Plan: routine careDiet: regularDischarge meds:Continue taking these medications:PNV WITH FE FUMARATE/FA () 1 EACH TAB 1 TABLET ORAL DAILY. FERROUS SULFATE (FEOSOL) 325 MG TAB 325 MILLIGRAM ORAL TWICE DAILY. Start taking the following new medications:IBUPROFEN (MOTRIN) 600 MG TAB 600 MILLIGRAM ORAL EVERY 6 HOURS NEEDED. as needed for INCISIONAL PAIN Qty = 28 No Refills traMADol (ULTRAM) 50 MG TAB 50 MILLIGRAM ORAL EVERY 6 HOURS NEEDED. as needed for INCISIONAL PAIN Qty = 28 No Refills DOCUSATE SODIUM (COLACE) 100 MG CAP 200 MILLIGRAM ORAL BEDTIME. as needed for CONSTIPATION Qty = 25 No Refills Discharge condition: stableDischarge to: homeFollow up in: 1 weekDischarge diagnosis: anemia (acute blood loss), s/p cd at 1714 [facility] #:[id number] OF REPORT OBObstetric oqrd1164-28-86V23:13:00F.[id number] able for patient tlrjYRYRURQRIUKIKT9867-52-55V79:15:19 [facility] 2019-12-10 17:57:00 [id number] uENEhcvDvZyL7bPbnkRUVltIiXHp1 XJkL4acv9rlEoSIx1vE97UJYWDIbvWhcfb7518-60-13T47:5 7:00 [facility] ([facility])OB Postpart Progr NoteREPORT#:[id number] REPORT STATUS: SignedDATE:12/10/19 TIME: 1757 PATIENT: LIZY ROBERTS UNIT #: [id number]#: [id number] [address] [birth year] AGE: 24 SEX: F ATTEND: Fermin Warren MDADM AUTHOR: Fermin Warren MD * ALL edits or amendments must be made on the electronic/computer document * Subjective SubjectivePatient reports: Patient reports: Yes: normal lochia, pain management effective, tolerating po well, voiding well, voiding without pain, flatus. No: complaints. Objective GeneralVS:Vital SignsDate Temp Pulse Resp B/P B/P Mean Pulse Ox QjP351/-12/09 98.0-98.9 58-88 - 100-159/54-93 74.0-113.0 93-100 Last Documented: Result Date Time B/P 107/67 12/09 1635 Temp 98.3 12/09 1635 Pulse 85 12/09 1635 Resp 20 12/09 1635 B/P Mean 101.0 12/09 0520 Pulse Ox 98 12/09 0520 Patient Weight Weight (lb): 220Weight (oz): Weight (kg): 99.79 Physical ExamNeuro: Exam: alert, oriented x3, normal speechAbdomen: soft, no abnormal tenderness, no guardingIncision site: freda intact, dry, no drainage, no inflammationUterus: firm, involution appropriate, non-tenderFundus: firm, below the umbilicus, non-tender Diagnosis, Assessment Plan Diagnosis, Assessment PlanAssessment: nml progressPlan: routine care at 1758 RPT #:[id number] OF REPORT PRProgress Irdv1003-97-41U61:57:00F.[id number] able for patient cosvMXXXJNDWYFQSOU8822-53-97F04:58:55 [facility] 2019-12-09 15:17:00 [id number] YwU4SQnSV2nI1KAT6zL+CqbEAElvA Je9Mq6qB9U95/W+a7+ytYsXXPPv8w6Bs0k3829-37-52X41:1 7:00 [facility] ([facility])OB Admission / H PREPORT#:[id number] REPORT STATUS: SignedDATE:12/09/19 TIME: 151 PATIENT: LIZY ROBERTS UNIT #: [id number]#: [id number] [facility] AGE: 24 SEX: F ATTEND: Fermin Warren MDA AUTHOR: Fermin Warren MD * ALL edits or amendments must be made on the electronic/computer document * OB Admission H P HxChief complaint: uterine contractionsHPI:24 y oldG1 at 40 weeks who was admitted earlier for contractions and a gush of clear fluid. She denied any other complaintsPast medical history: abnl pap in the past and cryosurgeryPast surgical history: gastric sleeveSocial history: no alcohol use, no tobacco use, no drug useMedications:Home Medications:PNV WITH FE FUMARATE/FA () 1 TAB PO DAILY FERROUS SULFATE (FEOSOL) 325 MG PO BID AllergiesCoded Allergies:hydrocodone (Mild, vomiting 12/09/19) Review of SystemsConstitutional:Denies: chills. Skin:Denies: abrasion. Allergy/Immun:Denies: allergic reaction. Eyes:Denies: redness. ENT:Denies: ear drainage. Respiratory:Denies: SILVERMAN (dyspnea on exertion). Cardiovascular:Denies: chest pain. GI:Denies: abdominal pain. :Denies: dysuria. Musculoskeletal:Denies: arthritis. Objective GeneralVS:Last Documented: Result Date Time B/P Mean 81.0 12/08 1448 B/P 104/66 12/08 1448 Pulse 76 12/08 1448 Temp 98.1 12/08 1332 Vital Signs Date Temp Pulse Resp B/P B/P Mean Pulse Ox FiO2 12/08 98.1 62-93 104-130/51-79 73.0-100.0 Patient Weight Weight (lb): 220Weight (oz): Weight (kg): 99.79 Physical ExamHEENT: normocephalic w/o injuryCardiac: regular rate and rhythmLungs: clear to auscultationNeuro: Exam: alert, oriented x3, normal speechAbdomen: gravid, soft, no abnormal tendernessCervical/ exam: Dilatation (cm): 2 Effacement (%): 80 Est wt (gms): 3900 station: - 3Membranes: Membranes: SROMBaby A: Baby A baseline: 140 bpm Baby A variability: moderate 6-25 bpm Baby A accelerations: 15 X 15 Baby A FHR category: category 1 ResultROM test: positive Diagnosis, Assessment Plan Diagnosis, Assessment PlanAssessment/Impression: IUP 40 weeks in labor and positive ROM test (SROM)Plan: augmentation of labor, she had refused CD after counseling about risks of shoulder dystocia at 1546 RPT #:[id number] OF REPORT HPHistory and physical fcdaxxfxhsk3100-47-21W10:17:00F.[id number] AVAvailable for patient nnraTJAFGBCQIYMFDB2496-39-83F39:46:55 HCAWH
[2023-12-27 19:43] LABS: SARS-CoV-2 Antigen CONTROL BLUE LINE VIS/BG OK; SARS-CoV-2 Antigen Rapid Res Negative (Negative)
--- NOTE | 2023-12-27 21:24 | ER ---
Nurse's Notes [facility] Name: Camilla Enciso Age: 28 yrs Sex: Female : 1995 Arrival Date: 12/27/2023 Time: 18:32 Bed 11 Private MD: Diagnosis: Acute upper respiratory infection, unspecified Presentation: 12/26 18:42 Chief complaint: Patient states: scratchy throat and fever x 2 days ago. Reports being aa5 6 weeks . 18:42 Method Of Arrival: Ambulatory [facility] 18:42 Coronavirus screen: fever. Ebola Screen: Patient denies travel to an Ebola-affected [facility] area in the 21 days before illness onset. Initial Sepsis Screen: Does the patient meet any 2 criteria? No. Patient's initial sepsis screen is negative. Does the patient have a suspected source of infection? No. Patient's initial sepsis screen is negative. Risk Assessment: Do you want to hurt yourself or someone else? Patient reports no desire to harm self or others. Onset of symptoms was December 2023. 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 - Infectious Disease History:: Denies. - Social history:: Smoking status: Patient denies any tobacco usage or history of. Screenin:40 [facility] ED Fall Risk Assessment (Adult) History of falling in the last 3 months, mb9 including since admission No falls in past 3 months (0 pts) Confusion or Disorientation No (0 pts) Intoxicated or Sedated No (0 pts) Impaired Gait No (0 pts) Mobility Assist Device Used No (0 pt) Altered Elimination No (0 pt) Score/Fall Risk Level 0 - 2 = Low Risk Oriented to surroundings, Maintained a safe environment, Educated pt \T\ family on fall prevention, incl call for assistance when getting out of bed. Abuse screen: Denies threats or abuse. Nutritional screening: No deficits noted. Tuberculosis screening: No symptoms or risk factors identified. Assessment: 19:41 General: Appears in no apparent distress. Behavior is calm, cooperative. Pain: mb9 Complains of pain in throat. Neuro: Barksdale Agitation-Sedation Scale (RASS): 0 - Alert and Calm Level of Consciousness is awake, alert, obeys commands, Oriented to person, place, time, situation, Appropriate for age. Cardiovascular: Patient's skin is warm and dry. Respiratory: Airway is patent Respiratory effort is even, unlabored, Respiratory pattern is regular, symmetrical. GI: No signs and/or symptoms were reported involving the gastrointestinal system. : No signs and/or symptoms were reported regarding the genitourinary system. EENT: No signs and/or symptoms were reported regarding the EENT system. Derm: Skin is pink, warm \T\ dry. Musculoskeletal: Range of motion: intact in all extremities. 21:00 General: Appears in no apparent distress. comfortable, Behavior is calm, cooperative. jw7 Pain: Denies pain. Neuro: Level of Consciousness is awake, alert, obeys commands, Oriented to person, place, time, situation. Cardiovascular: Heart tones S1 S2 present Capillary refill < 3 seconds Clubbing of nail beds is absent JVD is absent Patient's skin is warm and dry. Respiratory: Airway is patent Trachea midline Respiratory effort is even, unlabored, Respiratory pattern is regular, symmetrical, Breath sounds are clear bilaterally. GI: Abdomen is round non-distended, Bowel sounds present X 4 quads. Abd is soft and non tender X 4 quads. : No deficits noted. No signs and/or symptoms were reported regarding the genitourinary system. EENT: No deficits noted. No signs and/or symptoms were reported regarding the EENT system. Derm: Skin is intact, is healthy with good turgor, Skin is dry, Skin is normal, Skin temperature is warm. Musculoskeletal: Circulation, motion, and sensation intact. Range of motion: intact in all extremities. Vital Signs: 18:42 BP 110 / 65; Pulse 84; Resp 18 S; Temp 98.5(O); Pulse Ox 100% on R/A; Weight 80.74 kg aa5 (R); Height 5 ft. 4 in. (R); 21:00 BP 115 / 62; Pulse 81; Resp 16 S; Pulse Ox 100% on R/A; jw7 18:42 Body Mass Index 30.55 (80.74 kg, 162.56 cm) aa5 ED Course: 18:39 Patient arrived in ED. mg5 18:39 Ingrid Buckley FNP-C [facility]. kb 18:39 Lennox Otoole MD is Attending Physician. kb 18:44 Triage completed. aa5 18:44 Arm band placed on. aa5 19:10 COVID swab sent to lab. Flu and/or RSV swab sent to lab. Strep swab sent to lab. aa5 19:40 Tania Coats, RN is Primary Nurse. mb9 19:41 Placed in gown. Bed in low position. Call light in reach. Side rails up X 1. Provided mb9 Education on: press call light if needing anything. Client placed on continuous cardiac and pulse oximetry monitoring. NIBP monitoring applied. 19:42 No provider procedures requiring assistance completed. Patient did not have IV access mb9 during this emergency room visit. Administered Medications: No medications were administered Medication: 19:41 VIS not applicable for this client. mb9 Outcome: 21:23 Discharge ordered by MD. kb 21:34 Discharged to home ambulatory, jw7 21:34 Condition: stable 21:34 Discharge instructions given to patient, Instructed on discharge instructions, follow up and referral plans. Demonstrated understanding of instructions, follow-up care, 21:35 Patient left the ED. jw7 Signatures: Ingrid Buckley FNP-C RN CHARGE-Carlosb Michelle Burnett, RN RN aa5 Deborah Cheema RN RN jw7 Tania Coats, RN RN mb9 Luisa Garvey mg5 Corrections: (The following items were deleted from the chart) 18:55 18:42 Chief complaint: Patient states: scratchy throat and fever x 2 days ago. aa5 aa5
--- NOTE | 2023-12-27 21:24 | EDPHYS ---
Physician Documentation [facility] Name: Camilla Enciso Age: 28 yrs Sex: Female : 1995 Arrival Date: 12/27/2023 Time: 18:32 Bed 11 Private MD: ED Physician Lennox Otoole HPI: 12/26 22:07 This 28 yrs old Female presents to ER via Ambulatory with complaints of Flu kb Symptoms - 6 weeks. 22:14 Pt is a 28 year old female who presents for fever, scratchy throat, cough and kb congestion for 2 days. Denies shortness of breath. 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 - Infectious Disease History:: Denies. - Social history:: Smoking status: Patient denies any tobacco usage or history of. ROS: 22:14 Constitutional: As per HPI kb Exam: 22:14 Constitutional: This is a well developed, well nourished patient who is awake, alert, kb and in no acute distress. Head/Face: Normocephalic, atraumatic. ENT: Moist Mucous membranes Chest/axilla: Normal chest wall appearance and motion. Cardiovascular: Regular rate Respiratory: Respirations even and unlabored. No increased work of breathing. Talking in full sentences Abdomen/GI: Soft, non-tender. No distention Skin: Warm, dry with normal turgor. Normal color. MS/ Extremity: Pulses equal, no cyanosis. Neurovascular intact. Full, normal range of motion. Neuro: Awake and alert, GCS 15, oriented to person, place, time, and situation. Moves all extremities. Normal gait. Vital Signs: 18:42 BP 110 / 65; Pulse 84; Resp 18 S; Temp 98.5(O); Pulse Ox 100% on R/A; Weight 80.74 kg aa5 (R); Height 5 ft. 4 in. (R); 21:00 BP 115 / 62; Pulse 81; Resp 16 S; Pulse Ox 100% on R/A; jw7 18:42 Body Mass Index 30.55 (80.74 kg, 162.56 cm) aa5 MDM: 18:39 Patient medically screened. kb 22:15 Differential diagnosis: flu, covid, uri, strep. Data reviewed: vital signs, nurses kb notes. Test considered but Not performed: X-ray: chest x-ray considered, but lungs clear bilaterally, resp even and unlabored. Counseling: I had a detailed discussion with the patient and/or guardian regarding the historical points, exam findings, and any diagnostic results supporting the discharge/admit diagnosis, lab results, the need for outpatient follow up, a family practitioner, to return to the emergency department if symptoms worsen or persist or if there are any questions or concerns that arise at home. 12/26 18:45 Order name: Flu; Complete Time: 20:10 kb 12/26 18:45 Order name: SARS-COV-2 Antigen Rapid; Complete Time: 19:46 kb 12/26 18:45 Order name: Strep; Complete Time: 19:46 kb 12/26 19:40 Order name: Throat Culture EDMS Administered Medications: No medications were administered Disposition Summary: 12/27/23 21:23 Discharge Ordered Notes: Location: Home kb Condition: Stable kb Diagnosis - Acute upper respiratory infection, unspecified kb Followup: kb - With: Emergency Department - When: As needed - Reason: Worsening of condition Followup: kb - With: Private Physician - When: 2 - 3 days - Reason: Recheck today's complaints, Continuance of care, Re-evaluation by your physician Discharge Instructions: - Discharge Summary Sheet kb - Upper Respiratory Infection, Adult, Bnex-qu-Qgse kb - Viral Respiratory Infection, Vixp-Ib-Uubj kb Forms: - Medication Reconciliation Form kb - Antibiotic Education kb - Prescription Opioid Use kb - Patient Portal Instructions kb - Leadership Thank You Letter kb Signatures: Dispatcher [employer] EDMS Ingrid Buckley, CLASSROOM COORDINATOR-C CLASSROOM COORDINATOR-Michelle Julio, RN RN aa5 Corrections: (The following items were deleted from the chart) 18:46 18:46 Influenza Screen (A \T\ B)+BA.LAB.BRZ ordered. EDMS EDMS 18:46 18:46 SARS-COV-2 Antigen Rapid+I.LAB.BRZ ordered. EDMS EDMS 18:46 18:46 Group A Streptococcus Rapid Sc+BA.LAB.BRZ ordered. EDMS EDMS
[2023-12-27 21:51] VITALS: BP 115/62; TEMP 98.5; O2SAT 100
== END 2023-12-27 21:35 | disposition home or self-care (01) ==
LOC: ER 18:32
DX: O99.511 Diseases of the respiratory system complicating pregnancy, first trimester (principal); Z3A.01 Less than 8 weeks gestation of pregnancy; Z88.5 Allergy status to narcotic agent; Z11.52 Encounter for screening for COVID-19
CPT/HCPCS: 36415; 87070; 87081; 87804; 87811; 99283